=== PATIENT | female | born 1990 | race Caucasian/White ===

== ENCOUNTER 2016-09-15 09:08 | Emergency (ER) | payer OTHER ==
[2016-09-15 09:22] VITALS: BP 109/64; PULSE 62; RESP 20; TEMP 98.1
--- NOTE | 2016-09-15 10:01 | ED ---
General Adult HPI - General Chief complaint: Dental/Oral Stated complaint: Oral Pain Time Seen by Provider: 09/15/16 09:28 Source: patient, RN notes reviewed Mode of arrival: ambulatory Limitations: no limitations - History of Present Illness Initial comments: Patient 25-year-old female who presents emergency room today with chief complaint of increased dental pain. Does admit to fractured tooth that occurred over a year ago. Does admit that approximately a month ago began having some pain. Does admit that she's been trying follow-up with dentist does have an appointment next week. Patient states pains been increasing worried about possible infection. States she's not used anything for pain. She has not tried any Tylenol or Motrin. States pain was worse today and feel like she could work came here to the emergency room. Patient denies any recent fever, chills, shortness of breath, chest pain, back pain, abdominal pain, nausea or vomiting, numbness or tingling, dysuria or hematuria, constipation or diarrhea, headaches or visual changes, or any other complaints. - Related Data Home Medications Medication Instructions Recorded Confirmed No Known Home Medications [No 09/15/16 09/15/16 Known Home Medications] Previous Rx's Medication Instructions Recorded Acetaminophen Tab [Tylenol] 1,000 mg PO TID 5 Days 09/15/16 Ibuprofen [Motrin] 600 mg PO Q6HR PRN #40 day 09/15/16 Penicillin V Potassium [Pen Vee K] 500 mg PO QID 10 Days 09/15/16 Allergies Allergy/AdvReac Type Severity Reaction Status Date / Time No Known Allergies Allergy Verified 09/15/16 09:22 Review of Systems ROS Statement: Those systems with pertinent positive or pertinent negative responses have been documented in the HPI. ROS Other: All systems not noted in ROS Statement are negative. Past Medical History Past Medical History: No Reported History Additional Past Medical History / Comment(s): OVARIAN CYSTS History of Any Multi-Drug Resistant Organisms: None Reported Past Surgical History: Section Additional Past Surgical History / Comment(s): colon biopsy Past Anesthesia/Blood Transfusion Reactions: No Reported Reaction Past Psychological History: No Psychological Hx Reported Smoking Status: Former smoker Past Alcohol Use History: None Reported Past Drug Use History: None Reported General Exam - General Exam Comments Initial Comments: General: The patient is awake and alert, in no distress, and does not appear acutely ill. Eye: Pupils are equal, round and reactive to light, extra-ocular movements are intact. No nystagmus. There is normal conjunctiva bilaterally. No signs of icterus. Ears, nose, mouth and throat: There are moist mucous membranes and no oral lesions. Patient does have fractured tooth at tooth #30. Also fractured tooth #19. No tenderness around the gumline of tooth #19. She is tender around tooth #30. There is no sign of an abscess to drain. Uvula midline. Patient swallows without any difficulty. Neck: The neck is supple, there is no tenderness or JVD. Cardiovascular: There is a regular rate and rhythm. No murmur, rub or gallop is appreciated. Respiratory: Lungs are clear to auscultation, respirations are non-labored, breath sounds are equal. No wheezes, stridor, rales, or rhonchi. Musculoskeletal: Normal ROM, no tenderness. Strength 5/5. Sensation intact. Pulses equal bilaterally 2+. Neurological: A&O x 3. CN II-XII intact, There are no obvious motor or sensory deficits. Coordination appears grossly intact. Speech is normal. Skin: Skin is warm and dry and no rashes or lesions are noted. Psychiatric: Cooperative, appropriate mood & affect, normal judgment. Limitations: no limitations Course Vital Signs 09/15/16 09:20 Temperature 98.1 F Pulse Rate 62 Respiratory 20 Rate Blood Pressure 109/64 O2 Sat by Pulse 99 Oximetry Medical Decision Making - Medical Decision Making Start on antibiotics and given pain medication of Tylenol Motrin here in the emergency room will be discharged home advised follow-up with her dentist. Advised return if any symptoms increase or worsen or for any other concerns. Disposition Clinical Impression: Pain, dental Disposition: HOME SELF-CARE Condition: Good Instructions: Toothache (ED) Additional Instructions: Please use medication as discussed. Please follow-up with distal/family doctor in the next 2 days of symptoms have not improved. Please return to emergency room if the symptoms increase or worsen or for any other concerns. Prescriptions: Acetaminophen Tab [Tylenol] 1,000 mg PO TID 5 Days Ibuprofen [Motrin] 600 mg PO Q6HR PRN #40 day PRN Reason: Pain Penicillin V Potassium [Pen Vee K] 500 mg PO QID 10 Days Referrals: Svetlana Sanford MD [Primary Care Provider] - 1-2 days Time of Disposition: 10:00
== END 2016-09-15 10:07 | disposition home or self-care (01) ==
LOC: EC 09:08
DX: K03.81 Cracked tooth (principal); K08.89 Other specified disorders of teeth and supporting structures; Z87.891 Personal history of nicotine dependence
CPT/HCPCS: 99282

== ENCOUNTER 2016-10-04 11:29 | Emergency (ER) | payer OTHER ==
--- NOTE | 2016-10-04 12:31 | ED ---
ENT HPI - General Chief complaint: Dental/Oral Stated complaint: BROKEN TOOTH HOLE IN CHEEK Time Seen by Provider: 10/04/16 12:13 Source: patient Mode of arrival: ambulatory Limitations: no limitations - Related Data Home Medications Medication Instructions Recorded Confirmed No Known Home Medications [No 09/15/16 09/15/16 Known Home Medications] Previous Rx's Medication Instructions Recorded Acetaminophen Tab [Tylenol] 1,000 mg PO TID 5 Days 09/15/16 Ibuprofen [Motrin] 600 mg PO Q6HR PRN #40 day 09/15/16 Penicillin V Potassium [Pen Vee K] 500 mg PO QID 10 Days 09/15/16 Acetaminophen with Codeine 1 each PO Q4H PRN #20 tab 10/04/16 [Tylenol w/codeine #3] Clindamycin HCl [Cleocin] 300 mg PO Q6HR #28 cap 10/04/16 Allergies Allergy/AdvReac Type Severity Reaction Status Date / Time No Known Allergies Allergy Verified 10/04/16 11:54 Review of Systems ROS Statement: Those systems with pertinent positive or pertinent negative responses have been documented in the HPI. ROS Other: All systems not noted in ROS Statement are negative. Past Medical History Past Medical History: No Reported History Additional Past Medical History / Comment(s): OVARIAN CYSTS History of Any Multi-Drug Resistant Organisms: None Reported Past Surgical History: Section Additional Past Surgical History / Comment(s): colon biopsy Past Anesthesia/Blood Transfusion Reactions: No Reported Reaction Past Psychological History: No Psychological Hx Reported Smoking Status: Current every day smoker Past Alcohol Use History: None Reported Past Drug Use History: None Reported General Exam Limitations: no limitations Course Vital Signs 10/04/16 11:51 Temperature 97.5 F L Pulse Rate 90 Respiratory 20 Rate Blood Pressure 134/93 O2 Sat by Pulse 100 Oximetry Disposition Clinical Impression: Fracture of tooth, Pain, dental Disposition: HOME SELF-CARE Instructions: Toothache (ED) Prescriptions: Clindamycin HCl [Cleocin] 300 mg PO Q6HR #28 cap Acetaminophen with Codeine [Tylenol w/codeine #3] 1 each PO Q4H PRN #20 tab PRN Reason: Pain Referrals: Svetlana Sanford MD [Primary Care Provider] - 1-2 days Eleazar Wilson DDS [STAFF PHYSICIAN] - 1-2 days Time of Disposition: 12:30
[2016-10-04 12:37] VITALS: BP 134/68; PULSE 87; RESP 18; TEMP 98
== END 2016-10-04 12:36 | disposition home or self-care (01) ==
LOC: EC 11:29
DX: S02.5XXA Fracture of tooth (traumatic), initial encounter for closed fracture (principal); X58.XXXA Exposure to other specified factors, initial encounter; F17.200 Nicotine dependence, unspecified, uncomplicated
CPT/HCPCS: 99283

== ENCOUNTER → 2016-11-27 | Outpatient (CLI) | payer OTHER ==
--- NOTE | 2016-11-28 14:48 | US ---
EXAMINATION TYPE: US pelvic complete DATE OF EXAM: 11/27/2016 COMPARISON: 11/04/2014 CLINICAL HISTORY: N94.6 Dysmenorrhea. TECHNIQUE: Real-time transabdominal sonography Date of LMP: Not reported EXAM MEASUREMENTS: Uterus: 9.2 x 4.0 x 5.3 cm Endometrial Stripe: 0.4 cm Right Ovary: 2.5 x 1.6 x 1.4 cm Left Ovary: 2.8 x 1.5 x 1.4 cm 1. Uterus: Anteverted wnl 2. Endometrium: wnl 3. Right Ovary: wnl 4. Left Ovary: wnl 5. Bilateral adnexa: wnl 6. Posterior cul-de-sac: wnl IMPRESSION: 1. Normal pelvic ultrasound.
== END | disposition home or self-care (01) ==
LOC: RADUSWWP 15:38
PROVIDERS: ATTEND Internal Medicine
DX: N94.6 Dysmenorrhea, unspecified (principal)
CPT/HCPCS: 76856

== ENCOUNTER 2017-01-13 19:31 | Emergency (ER) | payer OTHER ==
[2017-01-13 19:57] VITALS: TEMP 98.2
[2017-01-13] MEDS ORDERED: ORPHENADRINE 30 MG/ML 2 ML VIAL IVP STA (21:33)
--- NOTE | 2017-01-13 21:54 | XR ---
EXAMINATION TYPE: XR chest 2V DATE OF EXAM: 01/13/2017 COMPARISON: Chest x-ray November 23, 2011 HISTORY: Chest pain. TECHNIQUE: Frontal and lateral views of the chest are obtained. FINDINGS: There is no focal air space opacity, pleural effusion, or pneumothorax seen. The cardiac silhouette size is within normal limits. The osseous structures are intact. IMPRESSION: No acute process. No significant change from prior.
--- NOTE | 2017-01-13 21:55 | XR ---
EXAMINATION TYPE: XR cervical spine comp DATE OF EXAM: 01/13/2017 TECHNIQUE: Frontal, lateral, open mouth, and oblique images cervical spine are acquired. HISTORY: Pain pain after trauma injury. COMPARISON: None FINDINGS: The cervical spine is visualized in its entirety from C1 thru the inferior C7 level, it is satisfactory in alignment without evidence of acute fracture or dislocation. There is suboptimal demetrius luation of C7-T1 disc space without dedicated swimmer's view. The pre-vertebral soft tissue appears w ithin normal limits. The C1-C2 articulation is within normal limits on the open mouth view. Vertebra l body heights and disc space heights are maintained. The oblique images are within normal limits. Ov erlying soft tissue is unremarkable. IMPRESSION: No acute fracture or dislocation is seen in the cervical spine on images saved.
[2017-01-13 22:11] LABS: Basophils % (A) 0 %; CH 30.5; CHCM 33.6; Eosinophils # (A) 0.2 k/uL (0-0.7); Eosinophils % (A) 2 %; HCT 37.8 % (34.0-46.0); HGB 12.8 gm/dL (11.4-16.0); Luc % (Auto) 1; Lymphocytes # (A) 2.9 k/uL (1.0-4.8); Lymphocytes % (A) 30 %; MCH 30.9 pg (25.0-35.0); MCHC 33.8 g/dL (31.0-37.0); MCV 91.3 fL (80.0-100.0); Mean Platelet Volume 7.8; Monocytes # (A) 0.4 k/uL (0-1.0); Monocytes % (A) 4 %; Neutrophils % (A) 63 %; RBC 4.14 m/uL (3.80-5.40); WBC 9.6 k/uL (3.8-10.6); WBC (Perox) 10.07
[2017-01-13 22:12] VITALS: BP 123/71; RESP 18
[2017-01-13 22:24] LABS: ALT 38 U/L (9-52); AST 27 U/L (14-36); Alkaline Phosphatase 66 U/L (38-126); Anion Gap 12 mmol/L; Blood Urea Nitrogen 11 mg/dL (7-17); Calcium 9.7 mg/dL (8.4-10.2); Carbon Dioxide 20 mmol/L (22-30); Chloride 107 mmol/L (98-107); Glucose 78 mg/dL (74-99); Non-African American GFR(MDRD) >60 (>60 ml/min/1.73 sqM); Sodium 139 mmol/L (137-145); Total Bilirubin 0.4 mg/dL (0.2-1.3); Total Protein 7.4 g/dL (6.3-8.2)
[2017-01-13 22:54] VITALS: PULSE 88
--- NOTE | 2017-01-13 23:13 | ED ---
Head Injury HPI - General Chief complaint: Head Injury Stated complaint: Fall/Headache Time Seen by Provider: 01/13/17 21:08 Source: patient, RN notes reviewed, old records reviewed Mode of arrival: wheelchair Limitations: no limitations - History of Present Illness Initial comments: Patient is a 26-year-old female presents emergency Department chief complaint of left-sided neck pain and headache. She reports that she slipped, and hit her head on the edge of her car and slid down. She also complains of some abdominal cramping and nausea as well. She reports that she had no loss of consciousness. She states that it feels like her muscles are spasming in her neck. She denies any change in bowel habit or urination. Denies any other associated symptoms. Patient was concerned she is having difficulty with her neck.Patient denies any recent fever, chills, shortness of breath, chest pain, back pain, abdominal pain, nausea vomiting, numbness or tingling, dysuria or hematuria, constipation or diarrhea, headaches or visual changes, or any other current symptoms - Related Data Previous Rx's Medication Instructions Recorded Cyclobenzaprine [Flexeril] 10 mg PO TID #15 tab 01/13/17 Allergies/Adverse reactions: Allergies Allergy/AdvReac Type Severity Reaction Status Date / Time No Known Allergies Allergy Verified 01/13/17 21:08 Review of Systems ROS Statement: Those systems with pertinent positive or pertinent negative responses have been documented in the HPI. ROS Other: All systems not noted in ROS Statement are negative. Past Medical History Past Medical History: No Reported History Additional Past Medical History / Comment(s): OVARIAN CYSTS History of Any Multi-Drug Resistant Organisms: None Reported Past Surgical History: Section Additional Past Surgical History / Comment(s): colon biopsy Past Anesthesia/Blood Transfusion Reactions: No Reported Reaction Past Psychological History: No Psychological Hx Reported Smoking Status: Current every day smoker Past Alcohol Use History: None Reported Past Drug Use History: None Reported General Exam - General Exam Comments Initial Comments: Well-appearing 26-year-old female. Alert and oriented 4. No distress. Limitations: no limitations General appearance: alert, in no apparent distress Head exam: Present: atraumatic, normocephalic, normal inspection Eye exam: Present: normal appearance, PERRL, EOMI. Absent: scleral icterus, conjunctival injection, periorbital swelling ENT exam: Present: normal exam, mucous membranes moist Neck exam: Present: normal inspection. Absent: tenderness, meningismus, full ROM (Patient has pain and tenderness to palpation over her lateral neck, left side.), lymphadenopathy Respiratory exam: Present: normal lung sounds bilaterally. Absent: respiratory distress, wheezes, rales, rhonchi, stridor Cardiovascular Exam: Present: regular rate, normal rhythm, normal heart sounds. Absent: systolic murmur, diastolic murmur, rubs, gallop, clicks GI/Abdominal exam: Present: soft, normal bowel sounds. Absent: distended, guarding, rebound, rigid Extremities exam: Present: normal inspection, full ROM, normal capillary refill. Absent: tenderness, pedal edema, joint swelling, calf tenderness Back exam: Present: normal inspection Neurological exam: Present: alert, oriented X3, CN II-XII intact Course Vital Signs 01/13/17 01/13/17 19:54 22:09 Temperature 98.2 F 98.2 F Pulse Rate 80 88 Respiratory 20 18 Rate Blood Pressure 134/99 123/71 O2 Sat by Pulse 98 97 Oximetry Medical Decision Making - Medical Decision Making Patient is a 26-year-old [employer] chief complaint of left-sided neck pain and headache after she slipped and hit her head on the edge of the car and slid down. No loss conscious. Patient is alert and oriented. No neurological deficits. Chest and he complains some vague abdominal pain, nausea. Lab work was obtained. Patient given IV Norflex and Toradol. She was feeling better at this time. Her cervical spine x-ray was reviewed and negative for any abnormalities, chest x-ray as well. Patient will be discharged at this time with follow-up. Given a prescription for Flexeril. For the muscle spasms over her neck and back. Patient agrees to treatment plan will comply. Return parameters were discussed. - Lab Data Result diagrams: 01/13/17 22:02 01/13/17 22:02 Lab Results 01/13/17 01/13/17 Range/Units 22:02 22:02 WBC 9.6 (3.8-10.6) k/uL RBC 4.14 (3.80-5.40) m/uL Hgb 12.8 (11.4-16.0) gm/dL Hct 37.8 (34.0-46.0) % MCV 91.3 (80.0-100.0) fL MCH 30.9 (25.0-35.0) pg MCHC 33.8 (31.0-37.0) g/dL RDW 14.0 (11.5-15.5) % Plt Count 251 (150-450) k/uL Neutrophils % 63 % Lymphocytes % 30 % Monocytes % 4 % Eosinophils % 2 % Basophils % 0 % Neutrophils # 6.0 (1.3-7.7) k/uL Lymphocytes # 2.9 (1.0-4.8) k/uL Monocytes # 0.4 (0-1.0) k/uL Eosinophils # 0.2 (0-0.7) k/uL Basophils # 0.0 (0-0.2) k/uL Sodium 139 (137-145) mmol/L Potassium 4.0 (3.5-5.1) mmol/L Chloride 107 (98-107) mmol/L Carbon Dioxide 20 L (22-30) mmol/L Anion Gap 12 mmol/L BUN 11 (7-17) mg/dL Creatinine 0.80 (0.52-1.04) mg/dL Est GFR (MDRD) Af Amer >60 (>60 ml/min/1.73 sqM) Est GFR (MDRD) Non-Af >60 (>60 ml/min/1.73 sqM) Glucose 78 (74-99) mg/dL Calcium 9.7 (8.4-10.2) mg/dL Total Bilirubin 0.4 (0.2-1.3) mg/dL AST 27 (14-36) U/L ALT 38 (9-52) U/L Alkaline Phosphatase 66 (38-126) U/L Total Protein 7.4 (6.3-8.2) g/dL Albumin 4.4 (3.5-5.0) g/dL - Radiology Data Radiology results: report reviewed Chest x-ray was reviewed negative for any acute process. Cervical spine shows no acute fracture dislocation. Disposition Clinical Impression: Head injury, Neck pain on left side Disposition: HOME SELF-CARE Condition: Good Instructions: Concussion (ED) Additional Instructions: Patient denies to take the medications as prescribed. Also take Motrin Tylenol for pain. Return to emergency department if any alarming signs or symptoms occur. Prescriptions: Cyclobenzaprine [Flexeril] 10 mg PO TID #15 tab Referrals: Svetlana Sanford MD [Primary Care Provider] - 1-2 days Time of Disposition: 23:03
[2017-01-14] MEDS ORDERED: KETOROLAC 30 MG/ML 1 ML VIAL IVP SCH
== END 2017-01-13 23:15 | disposition home or self-care (01) ==
LOC: EC 19:31
DX: S09.90XA Unspecified injury of head, initial encounter (principal); M54.2 Cervicalgia; F17.200 Nicotine dependence, unspecified, uncomplicated; W01.198A Fall on same level from slipping, tripping and stumbling with subsequent striking against other object, initial encounter
CPT/HCPCS: 99284; 96374; 96375; 36415; 80053; 85025; 71020; 72050; J2360; J1885

== ENCOUNTER 2017-03-08 07:44 | Day surgery (SDC) | payer OTHER ==
[2017-02-25 14:32] VITALS: BMI 26.5
[~2017-03-08 07:44] MED LIST: DEXAMETHASONE SOD PHOSPHATE 10 MG/ML 1 ML VIAL IV ONE; HEPARIN SODIUM,PORCINE 5,000 UNIT/ML 1 ML VIAL SQ ONE; HYDROmorphone 0.5 MG/0.5 ML SYRINGE IVP PRN; LACTATED RINGERS 1,000 ML IV SCH; LIDOCAINE 1% 20 ML VIAL (10MG/ML) FOR IV START INTRADERMA PRN; ONDANSETRON 4 MG/2 ML VIAL IVP ONE; SCOPOLAMINE 1.5MG/72HR PATCH TRANSDERM ONE; ceFAZolin IN SWFI 2 GM/20 ML SYRINGE IVP ONE
[2017-03-08] MEDS ORDERED: MIDAZOLAM 2 MG/2 ML VIAL IVP ONE (08:51)
--- NOTE | 2017-03-08 09:06 | P.GSHP ---
History of Present Illness H&P Date: 03/08/17 Chief Complaint: Incisional hernia This is a 26-year-old female for from Dr. Sanford. Patient presents today for open repair of incisional hernia. Patient has had a previous Pfannenstiel incision in the left lateral aspect of her incision there is a mass. Patient presents today for repair of incisional hernia. Past Medical History Past Medical History: No Reported History Additional Past Medical History / Comment(s): abdominal pain,Hx OVARIAN CYSTS History of Any Multi-Drug Resistant Organisms: None Reported Past Surgical History: Section Additional Past Surgical History / Comment(s): colon biopsy, x2 Past Anesthesia/Blood Transfusion Reactions: No Reported Reaction Smoking Status: Current every day smoker - Past Family History Mother Family Medical History: No Reported History Father Family Medical History: No Reported History Medications and Allergies Home Medications Medication Instructions Recorded Confirmed Type busPIRone HCL [Buspar] 7.5 mg PO BID 02/25/17 03/08/17 History Allergies Allergy/AdvReac Type Severity Reaction Status Date / Time No Known Allergies Allergy Verified 03/08/17 08:38 Surgical - Exam Vital Signs Temp Pulse Resp BP Pulse Ox 97.7 F 59 L 15 120/71 96 03/08/17 08:38 03/08/17 08:38 03/08/17 08:38 03/08/17 08:38 03/08/17 08:38 - General well developed, no distress - Eyes PERRL - ENT normal pinna - Neck no masses - Respiratory normal expansion - Cardiovascular Rhythm: regular - Abdomen Abdomen: soft, non tender Hernia: incisional (2 cm incisional hernia located in the left lateral aspect of Pfannenstiel incision..) Assessment and Plan Assessment: Incisional hernia. We'll perform repair.
[2017-03-08] MEDS ORDERED: SUCCINYLCHOLINE CHLORIDE 100 MG/5 ML SYR IV ONE (09:10)
[2017-03-08] MEDS ORDERED: MIDAZOLAM 2 MG/2 ML VIAL ONE (09:10)
[2017-03-08] MEDS ORDERED: NEOSTIGMINE 1 MG/ML 10 ML VIAL ONE (09:10)
[2017-03-08] MEDS ORDERED: LIDOCAINE 1% INJ 10MG/ML (20 ML MDV) ONE (09:10)
[2017-03-08] MEDS ORDERED: GLYCOPYRROLATE 0.2 MG/ML 2 ML VIAL ONE (09:10)
[2017-03-08] MEDS ORDERED: fentaNYL (PF) 50 MCG/ML 2 ML AMP ONE (09:10)
[2017-03-08] MEDS ORDERED: ROCURONIUM BROMIDE 10 MG/ML 10 ML VIAL IV ONE (09:10)
[2017-03-08] MEDS ORDERED: BUPIVACAIN-EPI 0.5%-1:200,000 30 ML VIAL SQ ONE ×2 (09:21)
[2017-03-08] MEDS ORDERED: SODIUM CHLORIDE 0.9% 50 ML with ceFAZolin 2 MG IV ONE ×2 (09:23)
[2017-03-08] MEDS ORDERED: LACTATED RINGERS 1,000 ML IV ONE ×2 (09:40→10:54)
[2017-03-08] MEDS ORDERED: MEPERIDINE 50 MG/ML SYRINGE IVP ONE ×2 (10:10→10:15)
[2017-03-08 10:13] VITALS: TEMP 97.4
--- NOTE | 2017-03-08 10:15 | P.OP ---
Date of Procedure: 03/08/17 Preoperative Diagnosis: Incisional hernia Postoperative Diagnosis: Incisional hernia Possible endometrioma Procedure(s) Performed: Repair of incisional hernia Excision of possible endometrioma Anesthesia: NUSRAT Surgeon: Tejinder Bartlett Pathology: other (Hernia sac, endometrioma) Condition: stable Disposition: PACU Description of Procedure: The patient's placed on the operating table in supine position. She received general anesthesia. Her abdomen was prepped and draped usual fashion. The patient had a small mass in the lateral aspect of her Pfannenstiel incision. The skin was incised to the previous scar. And then using left cautery the subcutaneous tissues were divided. The patient had a small fascial defect in the lateral aspect of her scar. This was opened. Just medial to this there appeared to be evidence of a fluid filled cyst. It had the appearance of an endometrioma. There was some dark blood within the cyst. The cyst was excised using left cautery. The hernia sac was excised. The fascial defect was then closed using 0 Vicryl suture. The skin was closed interrupted 3-0 Monocryl suture. Dermabond was applied. Patient top she will was sent to recovery in stable condition.
[2017-03-08 10:19] VITALS: RESP 16
[2017-03-08] MEDS ORDERED: HYDROmorphone 1 MG/ML 1 ML SYRINGE IVP ONE ×4 (10:30→10:53)
[2017-03-08] MEDS ORDERED: HYDROcodone/APAP 7.5-325MG 1 EACH TAB PO ONE (11:30)
[2017-03-08 12:19] VITALS: BP 121/70; PULSE 67
== END 2017-03-08 12:24 | disposition home or self-care (01) ==
LOC: OR 07:44
PROVIDERS: ATTEND Surgery
DX: K43.2 Incisional hernia without obstruction or gangrene (principal); N80.6 Endometriosis in cutaneous scar; F17.200 Nicotine dependence, unspecified, uncomplicated; Z79.899 Other long term (current) drug therapy; F41.9 Anxiety disorder, unspecified
CPT/HCPCS: 81025; 88305; 88302; 49560; J2250; J1644; J1100; J2710; J2175; J2405; J2001; J3010; J1170; J0690; J0330

== ENCOUNTER 2017-03-12 06:46 | Emergency (ER) | payer OTHER ==
[2017-03-12 06:57] VITALS: BP 136/81; PULSE 83; RESP 18
[2017-03-12] MEDS ORDERED: KETOROLAC 30 MG/ML 1 ML VIAL IM STA (07:11)
--- NOTE | 2017-03-12 07:20 | ED ---
ENT HPI - General Chief complaint: Dental/Oral Stated complaint: dental pain Time Seen by Provider: 03/12/17 06:59 Source: patient, RN notes reviewed, old records reviewed Mode of arrival: ambulatory Limitations: no limitations - History of Present Illness Initial comments: 26-year-old female presenting with three-day history of worsening right upper dental pain. Patient has been taking [place] at home with minimal relief. She has not seen a dentist. She had recent abdominal wall surgery, she has no complaints regarding her abdomen or recent surgery. Pain is controlled. Patient's chief complaint and only complaint at this time is right dental pain. No fever. No facial swelling. No difficulty swallowing. Pain is severe dull aching in nature. Constant pain MD complaint: tooth pain Onset/Timin -: days(s) - Related Data Home Medications Medication Instructions Recorded Confirmed busPIRone HCL [Buspar] 7.5 mg PO BID 02/25/17 03/08/17 Previous Rx's Medication Instructions Recorded Docusate [Colace] 100 mg PO BID #20 capsule 03/08/17 HYDROcodone/APAP 7.5-325MG [[place] 1 each PO Q4H PRN #30 tab 03/08/17 7.5] HYDROcodone/APAP 5-325MG [[place] 1 tab PO Q6HR PRN #12 tab 03/12/17 5-325] Ibuprofen [Motrin] 600 mg PO Q8HR PRN #24 tab 03/12/17 Penicillin V Potassium [Pen Vee K] 500 mg PO TID #30 tablet 03/12/17 Allergies Allergy/AdvReac Type Severity Reaction Status Date / Time No Known Allergies Allergy Verified 03/08/17 08:38 Review of Systems ROS Statement: Those systems with pertinent positive or pertinent negative responses have been documented in the HPI. ROS Other: All systems not noted in ROS Statement are negative. Past Medical History Past Medical History: No Reported History Additional Past Medical History / Comment(s): abdominal pain,Hx OVARIAN CYSTS History of Any Multi-Drug Resistant Organisms: None Reported Past Surgical History: Section Additional Past Surgical History / Comment(s): colon biopsy, x2,mass removed from lower stomach 03/08/16 testing for CA. Past Anesthesia/Blood Transfusion Reactions: No Reported Reaction Past Psychological History: Anxiety Smoking Status: Current every day smoker Past Alcohol Use History: None Reported Past Drug Use History: None Reported - Past Family History Mother Family Medical History: No Reported History Father Family Medical History: No Reported History General Exam Limitations: no limitations General appearance: alert, in no apparent distress Head exam: Present: atraumatic, normocephalic Eye exam: Present: normal appearance, PERRL ENT exam: Present: mucous membranes moist, normal external ear exam, other ( Tenderness to percussion over tooth #2, no visualized abscess.) Neck exam: Present: normal inspection. Absent: tenderness, meningismus, lymphadenopathy Respiratory exam: Present: normal lung sounds bilaterally. Absent: respiratory distress Cardiovascular Exam: Present: regular rate, normal rhythm GI/Abdominal exam: Present: soft, other (Left lower abdominal incision is clean dry and intact, no tenderness). Absent: distended, tenderness Extremities exam: Present: normal inspection, normal capillary refill. Absent: calf tenderness Neurological exam: Present: alert, oriented X3, CN II-XII intact. Absent: motor sensory deficit Psychiatric exam: Present: normal affect, normal mood Skin exam: Present: warm, dry, intact Course Vital Signs 03/12/17 06:52 Pulse Rate 83 Respiratory 18 Rate Blood Pressure 136/81 O2 Sat by Pulse 100 Oximetry Medical Decision Making - Medical Decision Making 26-year-old female with 3 days of tooth pain over tooth #2. Patient is afebrile well-appearing. She will be given outpatient dental follow-up, prescribed Motrin and penicillin. Disposition Clinical Impression: Dental abscess, Toothache Disposition: HOME SELF-CARE Instructions: Dental Abscess (ED), Toothache (ED) Additional Instructions: Please follow up with dental clinic, information provided. Prescriptions: HYDROcodone/APAP 5-325MG [[place] 5-325] 1 tab PO Q6HR PRN #12 tab PRN Reason: Pain Ibuprofen [Motrin] 600 mg PO Q8HR PRN #24 tab PRN Reason: Pain Penicillin V Potassium [Pen Vee K] 500 mg PO TID #30 tablet Referrals: Svetlana Sanford MD [Primary Care Provider] - 1-2 days Time of Disposition: 07:18
[2017-03-12 07:21] VITALS: TEMP 98.6
== END 2017-03-12 07:39 | disposition home or self-care (01) ==
LOC: EC 06:46
DX: K04.7 Periapical abscess without sinus (principal); F41.9 Anxiety disorder, unspecified; F17.200 Nicotine dependence, unspecified, uncomplicated; Z79.899 Other long term (current) drug therapy
CPT/HCPCS: 99283; 96372; J1885

== ENCOUNTER 2017-03-22 11:12 | Emergency (ER) | payer OTHER ==
[2017-03-22] MEDS ORDERED: KETOROLAC 30 MG/ML 1 ML VIAL IVP STA (12:45)
[2017-03-22] MEDS ORDERED: RX INFO: IV CONTRAST WAS GIVEN 1 EACH MISC MISCELLANE PRN (12:45)
[2017-03-22] MEDS ORDERED: SODIUM CHLORIDE 0.9% 1,000 ML IV STA (12:45)
--- NOTE | 2017-03-22 12:51 | ED ---
Fall HPI - General Chief Complaint: Fall Stated Complaint: Hernia Time Seen by Provider: 03/22/17 12:32 Source: patient Mode of arrival: ambulatory - History of Present Illness Initial Comments: This is a 26-year-old female who states she had a left hernia repair to the left lower quadrant of the abdomen on the eighth of this month who states she slipped and fell down 3 steps yesterday but was able to catch herself and did not actually land on anything in particular. She initially thought she would be okay was started developing left lower quadrant abdominal pain. She states she has some swelling to the area but no bleeding or discharge. She states she has a lot of pain in this area does increase with movement she denies any fevers chills sweats or dysuria. MD Complaint: fall, other - Related Data Home Medications Medication Instructions Recorded Confirmed busPIRone HCL [Buspar] 7.5 mg PO BID 02/25/17 03/22/17 Previous Rx's Medication Instructions Recorded Penicillin V Potassium [Pen Vee K] 500 mg PO TID #30 tablet 03/12/17 Ibuprofen 800 mg PO Q6HR PRN #20 tablet 03/22/17 Allergies Allergy/AdvReac Type Severity Reaction Status Date / Time acetaminophen [From [place]] AdvReac Abdominal Verified 03/22/17 12:29 Pain hydrocodone [From [place]] AdvReac Abdominal Verified 03/22/17 12:29 Pain Review of Systems ROS Statement: Those systems with pertinent positive or pertinent negative responses have been documented in the HPI. ROS Other: All systems not noted in ROS Statement are negative. Past Medical History Past Medical History: No Reported History Additional Past Medical History / Comment(s): abdominal pain,Hx OVARIAN CYSTS History of Any Multi-Drug Resistant Organisms: None Reported Past Surgical History: Bowel Resection, Section, Hernia Repair Additional Past Surgical History / Comment(s): colon biopsy, x2,mass removed from lower stomach 03/08/16 testing for CA. Past Anesthesia/Blood Transfusion Reactions: No Reported Reaction Past Psychological History: Anxiety Smoking Status: Current every day smoker Past Alcohol Use History: None Reported Past Drug Use History: None Reported - Past Family History Mother Family Medical History: No Reported History Father Family Medical History: No Reported History General Exam - General Exam Comments Initial Comments: This is a well-developed well-nourished awake alert oriented 3 female Limitations: no limitations General appearance: alert, anxious Head exam: Present: atraumatic, normocephalic, normal inspection Eye exam: Present: normal appearance, PERRL, EOMI. Absent: scleral icterus, conjunctival injection, periorbital swelling ENT exam: Present: normal exam, mucous membranes moist Neck exam: Present: normal inspection. Absent: tenderness, meningismus, lymphadenopathy Respiratory exam: Present: normal lung sounds bilaterally. Absent: respiratory distress, wheezes, rales, rhonchi, stridor Cardiovascular Exam: Present: regular rate, normal rhythm, normal heart sounds. Absent: systolic murmur, diastolic murmur, rubs, gallop, clicks GI/Abdominal exam: Present: soft, tenderness (Examination the abdomen reveals a well-healing surgical scar in the left lower quadrant region. A subcuticular stitch was used to close the wound appears to be intact with no evidence of any drainage or discharge. There is no obvious deformity or bulges at the region though the patient does state she is exquisitely tender to palpation to the area and along the left flank.), normal bowel sounds. Absent: distended, guarding, rebound, rigid Rectal exam: Present: deferred Extremities exam: Present: normal inspection, full ROM, normal capillary refill. Absent: tenderness, pedal edema, joint swelling, calf tenderness Back exam: Present: normal inspection Neurological exam: Present: alert, oriented X3, CN II-XII intact Psychiatric exam: Present: normal affect, normal mood Skin exam: Present: warm, dry, intact, normal color. Absent: rash Course Vital Signs 03/22/17 03/22/17 11:38 15:26 Temperature 98.6 F 98.0 F Pulse Rate 95 64 Respiratory 18 16 Rate Blood Pressure 140/89 126/58 O2 Sat by Pulse 99 99 Oximetry - Reevaluation(s) Reevaluation #1: 03/22/17 12:50 I did remove the single surgical tape that was over the wound the patient stated it hurt exquisitely with any type of movement and removal of the tape Medical Decision Making - Medical Decision Making The patient did finally get some relief in her pain I did discuss the findings with her. She was like to be sent home and follow-up in the office with her surgeon I did discuss the case with Dr. Bartlett. The patient will call make an appointment for tomorrow. She does not want to be sent home on any [place] as she said Motrin with her for her. - Lab Data Result diagrams: 03/22/17 12:52 03/22/17 12:52 Lab Results 03/22/17 03/22/17 03/22/17 Range/Units 12:52 12:52 12:52 WBC 8.1 (3.8-10.6) k/uL RBC 4.40 (3.80-5.40) m/uL Hgb 13.4 (11.4-16.0) gm/dL Hct 40.6 (34.0-46.0) % MCV 92.3 (80.0-100.0) fL MCH 30.6 (25.0-35.0) pg MCHC 33.1 (31.0-37.0) g/dL RDW 13.4 (11.5-15.5) % Plt Count 336 (150-450) k/uL Neutrophils % 65 % Lymphocytes % 27 % Monocytes % 4 % Eosinophils % 2 % Basophils % 0 % Neutrophils # 5.2 (1.3-7.7) k/uL Lymphocytes # 2.2 (1.0-4.8) k/uL Monocytes # 0.3 (0-1.0) k/uL Eosinophils # 0.2 (0-0.7) k/uL Basophils # 0.0 (0-0.2) k/uL Sodium 143 (137-145) mmol/L Potassium 4.0 (3.5-5.1) mmol/L Chloride 104 (98-107) mmol/L Carbon Dioxide 27 (22-30) mmol/L Anion Gap 12 mmol/L BUN 16 (7-17) mg/dL Creatinine 0.82 (0.52-1.04) mg/dL Est GFR (MDRD) Af Amer >60 (>60 ml/min/1.73 sqM) Est GFR (MDRD) Non-Af >60 (>60 ml/min/1.73 sqM) Glucose 84 (74-99) mg/dL Calcium 10.2 (8.4-10.2) mg/dL Total Bilirubin 0.5 (0.2-1.3) mg/dL AST 38 H (14-36) U/L ALT 71 H (9-52) U/L Alkaline Phosphatase 82 (38-126) U/L Total Protein 8.0 (6.3-8.2) g/dL Albumin 4.8 (3.5-5.0) g/dL Amylase 83 (30-110) U/L Lipase 206 (23-300) U/L Urine Color Yellow Urine Appearance Cloudy H (Clear) Urine pH 7.0 (5.0-8.0) Ur Specific [place] 1.019 (1.001-1.035) Urine Protein Negative (Negative) Urine Glucose (UA) Negative (Negative) Urine Ketones Negative (Negative) Urine Blood Negative (Negative) Urine Nitrite Negative (Negative) Urine Bilirubin Negative (Negative) Urine Urobilinogen <2.0 (<2.0) mg/dL Ur Leukocyte Esterase Negative (Negative) Urine WBC 1 (0-5) /hpf Ur Squamous Epith Cells 2 (0-4) /hpf Amorphous Sediment Occasional H (None) /hpf Urine Bacteria Rare H (None) /hpf Urine Mucus Moderate H (None) /hpf Urine HCG, Qual (Not Detectd) 03/22/17 Range/Units 12:52 WBC (3.8-10.6) k/uL RBC (3.80-5.40) m/uL Hgb (11.4-16.0) gm/dL Hct (34.0-46.0) % MCV (80.0-100.0) fL MCH (25.0-35.0) pg MCHC (31.0-37.0) g/dL RDW (11.5-15.5) % Plt Count (150-450) k/uL Neutrophils % % Lymphocytes % % Monocytes % % Eosinophils % % Basophils % % Neutrophils # (1.3-7.7) k/uL Lymphocytes # (1.0-4.8) k/uL Monocytes # (0-1.0) k/uL Eosinophils # (0-0.7) k/uL Basophils # (0-0.2) k/uL Sodium (137-145) mmol/L Potassium (3.5-5.1) mmol/L Chloride (98-107) mmol/L Carbon Dioxide (22-30) mmol/L Anion Gap mmol/L BUN (7-17) mg/dL Creatinine (0.52-1.04) mg/dL Est GFR (MDRD) Af Amer (>60 ml/min/1.73 sqM) Est GFR (MDRD) Non-Af (>60 ml/min/1.73 sqM) Glucose (74-99) mg/dL Calcium (8.4-10.2) mg/dL Total Bilirubin (0.2-1.3) mg/dL AST (14-36) U/L ALT (9-52) U/L Alkaline Phosphatase (38-126) U/L Total Protein (6.3-8.2) g/dL Albumin (3.5-5.0) g/dL Amylase (30-110) U/L Lipase (23-300) U/L Urine Color Urine Appearance (Clear) Urine pH (5.0-8.0) Ur Specific [place] (1.001-1.035) Urine Protein (Negative) Urine Glucose (UA) (Negative) Urine Ketones (Negative) Urine Blood (Negative) Urine Nitrite (Negative) Urine Bilirubin (Negative) Urine Urobilinogen (<2.0) mg/dL Ur Leukocyte Esterase (Negative) Urine WBC (0-5) /hpf Ur Squamous Epith Cells (0-4) /hpf Amorphous Sediment (None) /hpf Urine Bacteria (None) /hpf Urine Mucus (None) /hpf Urine HCG, Qual Not Detected (Not Detectd) - Radiology Data Radiology results: report reviewed (I did review the imaging and reports are is a 3.4 x 7.8 x 6 cm seroma/hematoma seen in the left lower quadrant.), image reviewed Disposition Clinical Impression: Seroma after procedure, Fall, Abdominal pain Disposition: HOME SELF-CARE Condition: Good Instructions: Abdominal Pain (ED) Additional Instructions: Follow-up with Dr. Bartlett tomorrow Prescriptions: Ibuprofen 800 mg PO Q6HR PRN #20 tablet PRN Reason: Pain Referrals: Svetlana Sanford MD [Primary Care Provider] - 1-2 days
[2017-03-22 13:04] LABS: Basophils % (A) 0 %; Eosinophils # (A) 0.2 k/uL (0-0.7); Eosinophils % (A) 2 %; HCT 40.6 % (34.0-46.0); HGB 13.4 gm/dL (11.4-16.0); Lymphocytes # (A) 2.2 k/uL (1.0-4.8); Lymphocytes % (A) 27 %; MCH 30.6 pg (25.0-35.0); MCHC 33.1 g/dL (31.0-37.0); MCV 92.3 fL (80.0-100.0); Mean Platelet Volume 7.4; Monocytes # (A) 0.3 k/uL (0-1.0); Monocytes % (A) 4 %; Neutrophils # (A) 5.2 k/uL (1.3-7.7); Neutrophils % (A) 65 %; Platelet Count 336 k/uL (150-450); RDW 13.4 % (11.5-15.5); WBC 8.1 k/uL (3.8-10.6)
[2017-03-22 13:08] LABS: Amorphous Sediment,Urine Occasional /hpf; Appearance,Urine Cloudy (Clear); Bacteria,Urine Rare /hpf; Bilirubin,Urine Negative (Negative); Blood,Urine Negative (Negative); Color,Urine Yellow; Glucose,Urine (UA) Negative (Negative); Ketones,Urine Negative (Negative); Leukocyte Esterase,Urine Negative (Negative); Mucus,Urine Moderate /hpf; Nitrite,Urine Negative (Negative); Protein,Urine Negative (Negative); Specific Gravity,Urine 1.019 (1.001-1.035); Squamous Epithelial Cell,Urine 2 /hpf (0-4); Urobilinogen,Urine <2.0 mg/dL (<2.0); WBC,Urine 1 /hpf (0-5)
[2017-03-22 13:13] LABS: ALT 71 U/L (9-52); AST 38 U/L (14-36); Albumin 4.8 g/dL (3.5-5.0); Alkaline Phosphatase 82 U/L (38-126); Amylase 83 U/L (30-110); Anion Gap 12 mmol/L; Blood Urea Nitrogen 16 mg/dL (7-17); Calcium 10.2 mg/dL (8.4-10.2); Carbon Dioxide 27 mmol/L (22-30); Chloride 104 mmol/L (98-107); Glucose 84 mg/dL (74-99); Lipase 206 U/L (23-300); Sodium 143 mmol/L (137-145); Total Bilirubin 0.5 mg/dL (0.2-1.3)
[2017-03-22] MEDS ORDERED: HYDROmorphone 2 MG/ML 1 ML SYRINGE IVP STA (14:00)
--- NOTE | 2017-03-22 14:03 | CT ---
EXAMINATION TYPE: CT abdomen pelvis w con DATE OF EXAM: 03/22/2017 COMPARISON: Ct 12/18/2013 HISTORY: Hernia repair 03-08-17, fall yesterday with pain to surgical site. CT DLP: 1179 mGycm Automated exposure control for dose reduction was used. TECHNIQUE: Helical acquisition of images from the lung bases through the pelvis have been completed. CONTRAST: Performed without Oral Contrast and with IV Contrast, patient injected with 100 mL of Omnipaque 300. FINDINGS: LUNG BASES: No significant abnormality is appreciated. AORTA: No significant abnormality is appreciated. LIVER/GB: No significant abnormality is appreciated. PANCREAS: No significant abnormality is seen. SPLEEN: No significant abnormality is seen. ADRENALS: No significant abnormality is seen. KIDNEYS: No significant abnormality is seen. REPRODUCTIVE ORGANS: No significant abnormality is seen BOWEL: No significant abnormality is seen. FREE AIR: No Free Air visible. ASCITES: None visible. PELVIC ADENOPATHY: None visualized. RETROPERITONEAL ADENOPATHY: No Retroperitoneal Adenopathy visible. URINARY BLADDER: Thickened urinary bladder wall may be due to lack of distention, correlate to exclu de cystitis. OSSEOUS STRUCTURES: No significant abnormality is seen. Left lower quadrant shows a fluid collection measures 3.4 x 7.8 x 6 cm and shows a fluid fluid level, extension to the skin surface from the anterior margin of the rectus muscle. There is an enhancing w all. Minimal free fluid in the pelvis. IMPRESSION: FINDINGS LIKELY REPRESENT POSTOP SEROMA POSSIBLY COMPLICATED BY SMALL AMOUNT OF HEMORRHAGE.
[2017-03-22 16:06] VITALS: BP 118/70; PULSE 52; RESP 18; TEMP 98.1
== END 2017-03-22 16:06 | disposition home or self-care (01) ==
LOC: EC 11:12
DX: K91.873 Postprocedural seroma of a digestive system organ or structure following other procedure (principal); F41.9 Anxiety disorder, unspecified; F17.200 Nicotine dependence, unspecified, uncomplicated; Z90.49 Acquired absence of other specified parts of digestive tract; Z79.899 Other long term (current) drug therapy; Z88.6 Allergy status to analgesic agent; Z88.5 Allergy status to narcotic agent; W10.9XXA Fall (on) (from) unspecified stairs and steps, initial encounter
CPT/HCPCS: 36415; 80053; 82150; 83690; 85025; 81001; 81025; 74177; 99284; 96374; 96375; 96361 ×3; J1170; J1885; Q9967

== ENCOUNTER 2017-07-16 10:01 | Emergency (ER) | payer OTHER ==
[2017-07-16 10:13] VITALS: RESP 16
--- NOTE | 2017-07-16 11:16 | ED ---
Skin/Abscess/FB HPI - General Chief complaint: Skin/Abscess/Foreign Body Stated complaint: Mass on Surgical Scar Time Seen by Provider: 07/16/17 10:17 Source: patient, RN notes reviewed, old records reviewed Mode of arrival: ambulatory Limitations: no limitations - History of Present Illness Initial comments: 26-year-old female presents emergency Department chief complaint of swelling over her surgical scar. She reports she had a hernia repair by Dr. Pires few months ago. Patient states that over the past day she's noticed some irritation and pain over the right aspect of her surgical scar. No drainage from the site. No redness. No other symptoms. She denies any fever or chills. - Related Data Home Medications Medication Instructions Recorded Confirmed busPIRone HCL [Buspar] 7.5 mg PO BID 02/25/17 07/16/17 Previous Rx's Medication Instructions Recorded Cephalexin [Keflex] 500 mg PO Q8HR #21 cap 07/16/17 Allergies Allergy/AdvReac Type Severity Reaction Status Date / Time hydrocodone [From [place]] AdvReac Abdominal Verified 07/16/17 10:27 Pain Review of Systems ROS Statement: Those systems with pertinent positive or pertinent negative responses have been documented in the HPI. ROS Other: All systems not noted in ROS Statement are negative. Past Medical History Past Medical History: No Reported History Additional Past Medical History / Comment(s): abdominal pain,Hx OVARIAN CYSTS History of Any Multi-Drug Resistant Organisms: None Reported Past Surgical History: Bowel Resection, Section, Hernia Repair Additional Past Surgical History / Comment(s): colon biopsy, x2,mass removed from lower stomach 03/08/16 testing for CA. Past Anesthesia/Blood Transfusion Reactions: No Reported Reaction Past Psychological History: Anxiety Smoking Status: Current every day smoker Past Alcohol Use History: None Reported Past Drug Use History: None Reported - Past Family History Mother Family Medical History: No Reported History Father Family Medical History: No Reported History General Exam - General Exam Comments Initial Comments: 26-year-old female. Alert and oriented. No acute distress. Limitations: no limitations General appearance: alert, in no apparent distress Head exam: Present: atraumatic, normocephalic, normal inspection Eye exam: Present: normal appearance, PERRL, EOMI. Absent: scleral icterus, conjunctival injection, periorbital swelling ENT exam: Present: normal exam, mucous membranes moist Neck exam: Present: normal inspection. Absent: tenderness, meningismus, lymphadenopathy Respiratory exam: Present: normal lung sounds bilaterally. Absent: respiratory distress, wheezes, rales, rhonchi, stridor Cardiovascular Exam: Present: regular rate, normal rhythm, normal heart sounds. Absent: systolic murmur, diastolic murmur, rubs, gallop, clicks GI/Abdominal exam: Present: soft, normal bowel sounds, other (Patient has a incision site however her groin. There is a small area measuring 2 cm of a firm cyst or anything incision site.). Absent: distended, tenderness, guarding , rebound, rigid Extremities exam: Present: normal inspection, full ROM, normal capillary refill. Absent: tenderness, pedal edema, joint swelling, calf tenderness Back exam: Present: normal inspection Neurological exam: Present: alert, oriented X3, CN II-XII intact Psychiatric exam: Present: normal affect, normal mood Course Vital Signs 07/16/17 10:10 Temperature 98.3 F Pulse Rate 74 Respiratory 16 Rate Blood Pressure 131/84 O2 Sat by Pulse 98 Oximetry Procedures - Incision & Drainage Site: abdomen Size (cm): 2 Anesthetic Used: lidocaine 1% Amount (mLs): 3 I&D Cleaning Method: Iodine Sterile Field Used?: Yes Needle Aspiration Performed?: Yes I&D Drainage Obtained: Pus Culture Obtained?: No Patient Tolerated Procedure: well, no complications Medical Decision Making - Medical Decision Making 26-year-old female presents emergency Department with chief complaint of a area of irritation and swelling of her surgical scar. This patient has a deeper abscess or seroma. I have the patient and the size 1% lidocaine with 2 mm in the area. I used an 18-gauge needle and was able to remove a small amount of purulent fluid. Patient had no further treatment. Lump diminished after pressure. Patient will be placed on Keflex. Discussed she likely has a dermoid cyst in the area. Patient can follow-up with PCP or surgical consult. Patient understands treatment plan will comply. Return parameters were discussed. Disposition Clinical Impression: Surgical site reaction Disposition: HOME SELF-CARE Condition: Good Instructions: Abscess Incision and Drainage (ED) Additional Instructions: Patient follow-up with primary care provider. Return to emergency department if any alarming signs or symptoms occur. He can also follow-up with her surgeon. Apply warm compresses over the area. Prescriptions: Cephalexin [Keflex] 500 mg PO Q8HR #21 cap Is patient prescribed a controlled substance at d/c from ED?: No If prescribed controlled substance>3 days was MAPS reviewed?: No When asked, does pt state using other controlled substances?: No Referrals: Svetlana Sanford MD [Primary Care Provider] - 1-2 days Time of Disposition: 11:16
[2017-07-16 11:38] VITALS: BP 120/78; PULSE 88; TEMP 97.9
== END 2017-07-16 11:30 | disposition home or self-care (01) ==
LOC: EC 10:01
DX: L76.82 Other postprocedural complications of skin and subcutaneous tissue (principal); G89.18 Other acute postprocedural pain; R10.31 Right lower quadrant pain; F41.9 Anxiety disorder, unspecified; F17.200 Nicotine dependence, unspecified, uncomplicated; Z79.899 Other long term (current) drug therapy; Z88.5 Allergy status to narcotic agent; Z90.49 Acquired absence of other specified parts of digestive tract
CPT/HCPCS: 10160; 99283

== ENCOUNTER 2017-09-01 11:39 | Emergency (ER) | payer OTHER ==
[2017-09-01] MEDS ORDERED: SODIUM CHLORIDE 0.9% 1,000 ML IV STA ×2 (12:25)
[2017-09-01] MEDS ORDERED: KETOROLAC 30 MG/ML 1 ML VIAL IVP STA (12:28)
[2017-09-01 12:48] LABS: Basophils % (A) 0 %; Eosinophils # (A) 0.1 k/uL (0-0.7); Eosinophils % (A) 2 %; HCT 42.6 % (34.0-46.0); HGB 14.1 gm/dL (11.4-16.0); Lymphocytes # (A) 1.6 k/uL (1.0-4.8); Lymphocytes % (A) 27 %; MCH 30.2 pg (25.0-35.0); MCHC 33.2 g/dL (31.0-37.0); Mean Platelet Volume 7.3; Monocytes # (A) 0.2 k/uL (0-1.0); Monocytes % (A) 4 %; Neutrophils # (A) 3.7 k/uL (1.3-7.7); Neutrophils % (A) 65 %; Platelet Count 234 k/uL (150-450); RBC 4.68 m/uL (3.80-5.40); RDW 12.8 % (11.5-15.5); WBC 5.7 k/uL (3.8-10.6)
--- NOTE | 2017-09-01 12:56 | XR ---
EXAMINATION TYPE: XR chest 2V DATE OF EXAM: 09/01/2017 COMPARISON: Prior chest x-ray 01/11/2017 HISTORY: Chest pain TECHNIQUE: Frontal and lateral views of the chest are obtained. FINDINGS: There is no focal air space opacity, pleural effusion, or pneumothorax seen. The cardiac silhouette size is within normal limits. The osseous structures are intact. IMPRESSION: No acute cardiopulmonary process.
--- NOTE | 2017-09-01 13:01 | ED ---
Chest Pain HPI - General Chief Complaint: Chest Pain Stated Complaint: Chest Pain Time Seen by Provider: 09/01/17 12:07 Source: patient, RN notes reviewed, old records reviewed Mode of arrival: ambulatory Limitations: no limitations - History of Present Illness Initial Comments: This Patient is a 26-year-old female chief complaint of 3 days of intermittent left-sided chest pain. She reports a sharp and stabbing when it occurs. She reports that she has had no significant symptoms associated with it. She denies any shortness of breath. She is a smoker. Family history of heart disease. She denies any cough, nausea or vomiting. She reports this feels different than acid reflux. She does have a history of anxiety. She does relate that the pain occasionally will radiate towards her back.Patient denies any recent fever, chills, shortness of breath, back pain, abdominal pain, nausea vomiting, numbness or tingling, dysuria or hematuria, constipation or diarrhea, headaches or visual changes, or any other current symptoms - Related Data Home Medications Medication Instructions Recorded Confirmed busPIRone HCL [Buspar] 7.5 mg PO BID 02/25/17 07/16/17 Previous Rx's Medication Instructions Recorded Cephalexin [Keflex] 500 mg PO Q8HR #21 cap 07/16/17 Allergies Allergy/AdvReac Type Severity Reaction Status Date / Time hydrocodone [From [place]] AdvReac Abdominal Verified 09/01/17 11:45 Pain Review of Systems ROS Statement: Those systems with pertinent positive or pertinent negative responses have been documented in the HPI. ROS Other: All systems not noted in ROS Statement are negative. EKG Findings - EKG Comments: EKG Findings:: EKG performed at 1220 shows sinus with normal EKGs. Ventricular rate of 73 bpm. NE interval is 172 ms. QRS duration is 86 ms. QT QTc is 360/ 396 ms. No evidence of ST elevation or T-wave inversion. No evidence of atrial or ventricular arrhythmias. Past Medical History Past Medical History: No Reported History Additional Past Medical History / Comment(s): abdominal pain,Hx OVARIAN CYSTS History of Any Multi-Drug Resistant Organisms: None Reported Past Surgical History: Bowel Resection, Section, Hernia Repair Additional Past Surgical History / Comment(s): colon biopsy, x2,mass removed from lower stomach 03/08/16 testing for CA. Past Anesthesia/Blood Transfusion Reactions: No Reported Reaction Past Psychological History: Anxiety Smoking Status: Current every day smoker Past Alcohol Use History: None Reported Past Drug Use History: None Reported - Past Family History Mother Family Medical History: No Reported History Father Family Medical History: No Reported History General Exam - General Exam Comments Initial Comments: Patient is a well-appearing 26-year-old female. Alert and oriented. No acute distress. Limitations: no limitations General appearance: alert, in no apparent distress Head exam: Present: atraumatic, normocephalic, normal inspection Eye exam: Present: normal appearance, PERRL, EOMI. Absent: scleral icterus, conjunctival injection, periorbital swelling ENT exam: Present: normal exam, mucous membranes moist Neck exam: Present: normal inspection. Absent: tenderness, meningismus, lymphadenopathy Respiratory exam: Present: normal lung sounds bilaterally. Absent: respiratory distress, wheezes, rales, rhonchi, stridor Cardiovascular Exam: Present: regular rate, normal rhythm, normal heart sounds. Absent: systolic murmur, diastolic murmur, rubs, gallop, clicks GI/Abdominal exam: Present: soft, normal bowel sounds. Absent: distended, tenderness, guarding, rebound, rigid Extremities exam: Present: normal inspection, full ROM, normal capillary refill. Absent: tenderness, pedal edema, joint swelling, calf tenderness Back exam: Present: normal inspection Neurological exam: Present: alert, oriented X3, CN II-XII intact Psychiatric exam: Present: normal affect, normal mood Skin exam: Present: warm, dry, intact, normal color. Absent: rash Course Vital Signs 09/01/17 11:42 Temperature 98.1 F Pulse Rate 62 Respiratory 20 Rate Blood Pressure 124/85 O2 Sat by Pulse 100 Oximetry - Consultations Consultation #1: Patient is reevaluated this time. She is resting heavily bed. Reports that no further episodes of this chest pain. She does relate that is easily intermittent and in towards the end of the day. She does report that he could be related to anxiety. I discussed all laboratory findings with her and she agrees to follow-up with primary care physician. Chest Pain MDM - [facility] 26-year-old female with history of anxiety chief complaint of 3 days of intermittent left-sided chest pain. She reports it feels like a sharp stabbing pain in nature. Not reproducible this time. She denies any pain at this moment. Patient's labwork was reviewed and normal. EKG was normal sinus rhythm. No signs of ST elevation or T-wave inversions. No hypertrophy or arrhythmias. Chest x-ray was reviewed and unremarkable. Negative d-dimer. All the rest of her lab work including CMP, CBC are within normal limits. I discussed the patient's pain could be related to anxiety or possibly even a normal arrhythmia at that moment that the pain is occurring. I discussed that she should follow-up with her primary care physician but otherwise will be cleared at this time from the emergency department. Patient agrees to treatment plan will comply. Return parameters were discussed. Disposition Clinical Impression: Chest pain Disposition: HOME SELF-CARE Condition: Good Instructions: Chest Pain (ED) Additional Instructions: Patient advised to follow-up with primary care physician. Return to emergency department if any alarming signs or symptoms occur. Is patient prescribed a controlled substance at d/c from ED?: No When asked, does pt state using other controlled substances?: No If prescribed controlled substance>3 days was MAPS reviewed?: No If opioid is for acute pain is fill amount 7 days or less?: No If Rx opioid, was Start Talking consent form obtained?: No Referrals: Svetlana Sanford MD [Primary Care Provider] - 1-2 days Time of Disposition: 14:04
[2017-09-01 13:06] LABS: Creatine Kinase 47 U/L (30-135)
[2017-09-01 13:08] LABS: ALT 27 U/L (9-52); AST 28 U/L (14-36); Albumin 4.7 g/dL (3.5-5.0); Alkaline Phosphatase 50 U/L (38-126); Anion Gap 14 mmol/L; Blood Urea Nitrogen 13 mg/dL (7-17); Calcium 9.5 mg/dL (8.4-10.2); Carbon Dioxide 24 mmol/L (22-30); Chloride 105 mmol/L (98-107); Glucose 88 mg/dL (74-99); Lipase 37 U/L (23-300); Magnesium 1.9 mg/dL (1.6-2.3); Sodium 143 mmol/L (137-145); Total Bilirubin 0.7 mg/dL (0.2-1.3); Total Protein 7.9 g/dL (6.3-8.2)
[2017-09-01 13:10] LABS: Amylase 78 U/L (30-110); Potassium 4.5 mmol/L (3.5-5.1)
[2017-09-01 13:19] LABS: Creatine Kinase MB <0.2 ng/mL (0.0-2.4); Troponin I <0.012 ng/mL (0.000-0.034)
[2017-09-01 13:23] LABS: INR 1.1 (<1.2); Partial Thromboplastin Time 22.1 sec (22.0-30.0); Prothrombin Time 10.9 sec (9.0-12.0)
[2017-09-01 13:26] LABS: D-Dimer <0.17 mg/L FEU (<0.60)
[2017-09-01 14:19] VITALS: BP 122/70; PULSE 70; RESP 16; TEMP 98.3
== END 2017-09-01 14:18 | disposition home or self-care (01) ==
LOC: EC 11:39
DX: R07.9 Chest pain, unspecified (principal); F41.9 Anxiety disorder, unspecified; F17.200 Nicotine dependence, unspecified, uncomplicated; Z79.899 Other long term (current) drug therapy; Z88.5 Allergy status to narcotic agent
CPT/HCPCS: 36415; 93005; 85379; 80053; 82150; 82550; 82553; 83690; 83735; 84484; 85025; 85610; 85730; 71046; 99285; 96374; 96361; J1885

== ENCOUNTER 2017-09-22 19:44 | Emergency (ER) | payer OTHER ==
[2017-09-22 19:54] VITALS: BP 157/108; PULSE 107; RESP 24; TEMP 98.1
[2017-09-22] MEDS ORDERED: LORazepam 2 MG/ML INJ IM STA (20:40)
--- NOTE | 2017-09-22 20:43 | ED ---
Anxiety HPI - General Chief Complaint: Anxiety Stated Complaint: anxiety/trouble breathing Time Seen by Provider: 09/22/17 20:22 Source: patient Mode of arrival: ambulatory - History of Present Illness Initial Comments: 26-year-old female patient presents to the emergency department today for evaluation of increased anxiety and panic attacks. Patient states that she lost her insurance and she has not had her anxiety medication for the last week. Patient states that she had a really hard day today. States that her father has Alzheimer's and dementia and is no longer a support for her. States that her girlfriend of 4 years moved to [place] yesterday. Patient states that this has been extremely trying for her and his causes her anxiety to increased. Patient states that her symptoms include a hyperventilation, numbness and tingly to her bilateral arms, and muscle cramping. Patient states that she has had an anxiety attack similar to this about a year ago. Patient states that her medication usually controls it. Patient denies any recent rash, fever, chills, abdominal pain, nausea, vomiting, diarrhea, constipation, back pain, dizziness, weakness, hematuria, dysuria, urinary urgency, urinary frequency, headache, visual changes, or any other complaints. - Related Data Home Medications: Home Medications Medication Instructions Recorded Confirmed busPIRone HCL [Buspar] 7.5 mg PO BID 02/25/17 07/16/17 Previous Rx's Medication Instructions Recorded Cephalexin [Keflex] 500 mg PO Q8HR #21 cap 07/16/17 Allergies/Adverse Reactions: Allergies Allergy/AdvReac Type Severity Reaction Status Date / Time hydrocodone [From [place]] AdvReac Abdominal Verified 09/22/17 19:54 Pain Review of Systems ROS Statement: Those systems with pertinent positive or pertinent negative responses have been documented in the HPI. ROS Other: All systems not noted in ROS Statement are negative. Past Medical History Past Medical History: No Reported History Additional Past Medical History / Comment(s): abdominal pain,Hx OVARIAN CYSTS History of Any Multi-Drug Resistant Organisms: None Reported Past Surgical History: Bowel Resection, Section, Hernia Repair Additional Past Surgical History / Comment(s): colon biopsy, x2,mass removed from lower stomach 03/08/16 testing for CA. Past Anesthesia/Blood Transfusion Reactions: No Reported Reaction Past Psychological History: Anxiety, PTSD Smoking Status: Current every day smoker Past Alcohol Use History: None Reported Past Drug Use History: None Reported - Past Family History Mother Family Medical History: No Reported History Father Family Medical History: No Reported History General Exam Limitations: no limitations General appearance: alert, in no apparent distress, other (The well-developed, well-nourished adult female patient who is extremely anxious at this time. Vital signs upon presentation are temperature 98.1F, pulse 107, respirations 24 , blood pressure 157/108, pulse ox 99% on room air.) Eye exam: Present: normal appearance, PERRL, EOMI. Absent: scleral icterus, conjunctival injection, periorbital swelling ENT exam: Present: normal exam, normal oropharynx, mucous membranes moist Respiratory exam: Present: normal lung sounds bilaterally, other ( Hyperventilation). Absent: respiratory distress, wheezes, rales, rhonchi, stridor Cardiovascular Exam: Present: normal rhythm, tachycardia, normal heart sounds. Absent: systolic murmur, diastolic murmur, rubs, gallop, clicks GI/Abdominal exam: Present: soft, normal bowel sounds. Absent: distended, tenderness, guarding, rebound, rigid Neurological exam: Present: alert, oriented X3, CN II-XII intact Psychiatric exam: Present: anxious, other (Hyperventilation, crying uncontrollably) Skin exam: Present: warm, dry, intact, normal color. Absent: rash Course Vital Signs 09/22/17 19:49 Temperature 98.1 F Pulse Rate 107 H Respiratory 24 Rate Blood Pressure 157/108 O2 Sat by Pulse 99 Oximetry Medical Decision Making - Medical Decision Making 26-year-old female patient presented to the emergency department today for evaluation of increased anxiety. Patient is hyperventilating and crying throughout visit. States that she had a lot going on her leg. Denies any suicidal or homicidal ideation. She was given an IM dose of Ativan. This did improve her symptoms. She'll be discharged. She does have a ride home. She is instructed follow up with her primary care physician and outpatient mental health services. Return parameters discussed in detail. She verbalizes understanding and agrees with this plan. Disposition Clinical Impression: Anxiety Disposition: HOME SELF-CARE Condition: Good Instructions: Generalized Anxiety Disorder (ED) Additional Instructions: Follow-up with her primary care physician for recheck as soon as possible. Return here immediately for any new, worsening, or concerning symptoms. Is patient prescribed a controlled substance at d/c from ED?: No Referrals: Svetlana Sanford MD [Primary Care Provider] - 1-2 days
== END 2017-09-22 22:30 | disposition home or self-care (01) ==
LOC: EC 19:44
DX: F41.9 Anxiety disorder, unspecified (principal); R06.4 Hyperventilation; R20.0 Anesthesia of skin; F43.10 Post-traumatic stress disorder, unspecified; F17.200 Nicotine dependence, unspecified, uncomplicated; Z79.899 Other long term (current) drug therapy; Z88.5 Allergy status to narcotic agent
CPT/HCPCS: 99283; 96372; J2060

== ENCOUNTER 2017-10-03 20:52 | Emergency (ER) | payer OTHER ==
--- NOTE | 2017-10-03 21:30 | ED ---
Psych HPI - General Chief Complaint: Psychiatric Symptoms Stated Complaint: Mental Health Time Seen by Provider: 10/03/17 21:10 Source: patient Mode of arrival: ambulatory - History of Present Illness Initial Comments: This patient is 26-year-old woman who presents to be evaluated for depressed mood and thoughts of harming herself. The patient states that she has had a history of some anxiety and previous cutting behavior. She states that she recently had a girlfriend leave her. She states that today her father and this really has caused her to have some thoughts of harming herself. She presents for help in dealing with the results. MD Complaint: suicidal ideation, feels depressed Onset/Timin -: days(s) Associated Psychiatric Symptoms: depression, suicidal ideation History of same: No Quality: getting worse Improves With: none Worsens With: none Context: significant life stressor Associated Symptoms: denies other symptoms - Related Data Home Medications Medication Instructions Recorded Confirmed busPIRone HCL [Buspar] 7.5 mg PO BID 02/25/17 07/16/17 Previous Rx's Medication Instructions Recorded Cephalexin [Keflex] 500 mg PO Q8HR #21 cap 07/16/17 Allergies Allergy/AdvReac Type Severity Reaction Status Date / Time hydrocodone [From [place]] AdvReac Abdominal Verified 10/03/17 21:08 Pain Review of Systems ROS Statement: Those systems with pertinent positive or pertinent negative responses have been documented in the HPI. ROS Other: All systems not noted in ROS Statement are negative. Constitutional: Denies: fever Respiratory: Denies: cough, dyspnea Cardiovascular: Denies: chest pain, palpitations, syncope Gastrointestinal: Denies: abdominal pain, vomiting, diarrhea Genitourinary: Denies: dysuria, hematuria Musculoskeletal: Denies: back pain Skin: Denies: rash Neurological: Denies: headache Psychiatric: Reports: anxiety, depression, suicidal thoughts. Denies: auditory hallucinations, visual hallucinations, homicidal thoughts Past Medical History Past Medical History: No Reported History Additional Past Medical History / Comment(s): abdominal pain,Hx OVARIAN CYSTS History of Any Multi-Drug Resistant Organisms: None Reported Past Surgical History: Bowel Resection, Section, Hernia Repair Additional Past Surgical History / Comment(s): colon biopsy, x2,mass removed from lower stomach 03/08/16 testing for CA. Past Anesthesia/Blood Transfusion Reactions: No Reported Reaction Past Psychological History: Anxiety, PTSD Smoking Status: Current every day smoker Past Alcohol Use History: None Reported Past Drug Use History: None Reported - Past Family History Mother Family Medical History: No Reported History Father Family Medical History: No Reported History General Exam Limitations: no limitations General appearance: alert, in no apparent distress Head exam: Present: atraumatic, normocephalic Eye exam: Present: normal appearance, PERRL, EOMI. Absent: scleral icterus, conjunctival injection ENT exam: Present: normal oropharynx Respiratory exam: Present: normal lung sounds bilaterally. Absent: respiratory distress, wheezes, rales, rhonchi, stridor Cardiovascular Exam: Present: regular rate, normal rhythm, normal heart sounds. Absent: systolic murmur, diastolic murmur, rubs, gallop GI/Abdominal exam: Present: soft. Absent: distended, tenderness, guarding, rebound, mass Extremities exam: Present: normal inspection, normal capillary refill. Absent: pedal edema, calf tenderness Neurological exam: Present: alert Psychiatric exam: Present: anxious, suicidal ideation. Absent: agitated, flat affect, manic, homicidal ideation Skin exam: Present: warm, dry, intact, normal color. Absent: rash Course Vital Signs 10/03/17 21:04 Temperature 99.3 F Pulse Rate 112 H Respiratory 20 Rate Blood Pressure 121/82 O2 Sat by Pulse 98 Oximetry Medical Decision Making - Medical Decision Making Patient is seen by behavioral health and they have formulated a plan to help her with what is going on. She will go and stay with a friend quiana. If she is faced with being alone she'll return here. If there is worsening in any way they will call 911 to be re-seen. Disposition Clinical Impression: Adjustment reaction Disposition: HOME SELF-CARE Condition: Good Instructions: Mood Disorders (ED) Is patient prescribed a controlled substance at d/c from ED?: No Referrals: Svetlana Sanford MD [Primary Care Provider] - 1-2 days
[2017-10-03 23:11] VITALS: BP 126/75; PULSE 76; RESP 18; TEMP 97.6
== END 2017-10-03 23:11 | disposition home or self-care (01) ==
LOC: EC 20:52
DX: F43.23 Adjustment disorder with mixed anxiety and depressed mood (principal); F43.10 Post-traumatic stress disorder, unspecified; F17.200 Nicotine dependence, unspecified, uncomplicated; Z79.899 Other long term (current) drug therapy; Z88.5 Allergy status to narcotic agent
CPT/HCPCS: 82075; 99285

== ENCOUNTER 2018-05-02 00:06 | Emergency (ER) | payer OTHER ==
[2018-05-02 00:16] VITALS: BP 133/84; PULSE 76; RESP 16; TEMP 98.5
--- NOTE | 2018-05-02 00:31 | ED ---
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 Amelia reports that last week she noted that she broke a tooth and had a sharp spot sticking out a tooth. This resulted in injury to the nuchal surface of her cheek. Patient reports that the area becomes swollen she continues to bite and irritated. She states that she does have a follow-up visit with dentist next week. Patient states that she is just uncomfortable due to the sore on her cheek and wanted to come to the ER to be evaluated, she states she was concerned that if she developed any infection her dentist wanted to see her so she wanted make sure there was no infection and antibiotics if there was any. She denies additional complaints. - Related Data Home Medications Medication Instructions Recorded Confirmed busPIRone HCL [Buspar] 7.5 mg PO BID 02/25/17 07/16/17 Previous Rx's Medication Instructions Recorded Cephalexin [Keflex] 500 mg PO Q8HR #21 cap 07/16/17 Allergies Allergy/AdvReac Type Severity Reaction Status Date / Time hydrocodone [From [place]] AdvReac Abdominal Verified 05/02/18 00:16 Pain Review of Systems ROS Statement: Those systems with pertinent positive or pertinent negative responses have been documented in the HPI. ROS Other: All systems not noted in ROS Statement are negative. Past Medical History Past Medical History: No Reported History Additional Past Medical History / Comment(s): abdominal pain,Hx OVARIAN CYSTS History of Any Multi-Drug Resistant Organisms: None Reported Past Surgical History: Bowel Resection, Section, Hernia Repair Additional Past Surgical History / Comment(s): colon biopsy, x2,mass removed from lower stomach 03/08/16 testing for CA. Past Anesthesia/Blood Transfusion Reactions: No Reported Reaction Past Psychological History: Anxiety, PTSD Smoking Status: Current every day smoker Past Alcohol Use History: None Reported Past Drug Use History: None Reported - Past Family History Mother Family Medical History: No Reported History Father Family Medical History: No Reported History General Exam - General Exam Comments Initial Comments: Physical Exam GENERAL: Patient is well-developed and well-nourished. Patient is nontoxic and well- hydrated and is in no distress. HENT: Normocephalic, Atraumatic. Poor dentition Left cheek does have area of irritation approximately 7mm in diameter - no surrounding erythema or signs of infection EYES: PERRL, EOMI PULMONARY: Unlabored respirations. CARDIOVASCULAR: Normal rate ABDOMEN: non distended SKIN: Skin is clear with no lesions or rashes and otherwise unremarkable. : Deferred NEUROLOGIC: Patient is alert and oriented x3. Moving all extremities spontaneously MUSCULOSKELETAL: Normal extremities with adequate strength and full range of motion. No lower extremity swelling or edema. No calf tenderness. PSYCHIATRIC: Normal psychiatric evaluation. Limitations: no limitations Limitations: no limitations Course Vital Signs 05/02/18 00:13 Temperature 98.5 F Pulse Rate 76 Respiratory 16 Rate Blood Pressure 133/84 O2 Sat by Pulse 100 Oximetry Medical Decision Making - Medical Decision Making Patient was seen and evaluated history is obtained from the patient. Patient with a broken tooth an injury to her left cheek concern that if she has infection her dentist will not see her or pull her tooth therefore she came to the ER for evaluation. Patient is no signs of infection she does have an area of irritation to the left cheek. I advised the patient that she should be able to bite dental wax which she can apply over the sharp broken part of her tooth to protect her cheek. Patient's breast understanding this. Patient agreeable with plan for discharge home and outpatient follow-up. Disposition Clinical Impression: Broken tooth, Cheek abrasion, non-infected Disposition: HOME SELF-CARE Condition: Good Instructions (If sedation given, give patient instructions): Acute Dental Trauma (ED) Additional Instructions: Applied dental wax to the broken tooth to prevent further abrasion to the cheek Is patient prescribed a controlled substance at d/c from ED?: No Referrals: Svetlana Sanford MD [Primary Care Provider] - 1-2 days
== END 2018-05-02 00:38 | disposition home or self-care (01) ==
LOC: EC 00:06
DX: S02.5XXA Fracture of tooth (traumatic), initial encounter for closed fracture (principal); S00.512A Abrasion of oral cavity, initial encounter; F41.9 Anxiety disorder, unspecified; F17.200 Nicotine dependence, unspecified, uncomplicated; Z79.899 Other long term (current) drug therapy; Z88.5 Allergy status to narcotic agent; X58.XXXA Exposure to other specified factors, initial encounter
CPT/HCPCS: 99283

== ENCOUNTER 2018-11-11 14:50 | Emergency (ER) | payer OTHER ==
[2018-11-11 14:59] VITALS: RESP 16
[2018-11-11 16:15] LABS: Basophils # (A) 0.1 k/uL (0-0.2); Basophils % (A) 1 %; Eosinophils # (A) 0.1 k/uL (0-0.7); Eosinophils % (A) 2 %; HCT 39.4 % (34.0-46.0); HGB 13.4 gm/dL (11.4-16.0); Lymphocytes # (A) 2.2 k/uL (1.0-4.8); Lymphocytes % (A) 26 %; MCV 91.4 fL (80.0-100.0); Mean Platelet Volume 7.3; Monocytes # (A) 0.3 k/uL (0-1.0); Monocytes % (A) 4 %; Neutrophils # (A) 5.4 k/uL (1.3-7.7); Neutrophils % (A) 66 %; Platelet Count 261 k/uL (150-450); RBC 4.31 m/uL (3.80-5.40); RDW 14.9 % (11.5-15.5); WBC 8.2 k/uL (3.8-10.6)
[2018-11-11 16:28] LABS: ALT 35 U/L (9-52); AST 28 U/L (14-36); African American GFR (CKD) >90 (>60 ml/min/1.73 sqM); Albumin 4.6 g/dL (3.5-5.0); Alkaline Phosphatase 58 U/L (38-126); Anion Gap 8 mmol/L; Blood Urea Nitrogen 18 mg/dL (7-17); Calcium 9.8 mg/dL (8.4-10.2); Carbon Dioxide 26 mmol/L (22-30); Chloride 106 mmol/L (98-107); Glucose 91 mg/dL (74-99); Non-African American GFR(CKD) >90 (>60 ml/min/1.73 sqM); Potassium 3.9 mmol/L (3.5-5.1); Sodium 140 mmol/L (137-145); Total Bilirubin 0.6 mg/dL (0.2-1.3); Total Protein 7.6 g/dL (6.3-8.2)
--- NOTE | 2018-11-11 16:51 | ED ---
GI Bleed HPI - General Chief complaint: GI Bleed Stated complaint: Rectal bleeding Time Seen by Provider: 11/11/18 15:09 Source: patient Mode of arrival: ambulatory Limitations: no limitations - History of Present Illness Initial comments: 28yo female presenting today for chief complaint rectal bleeding. Patient states the last 24 hours she is had 2 episodes of bleeding from the rectum. Patient states she has not had said since this morning. Patient states she has had cramping this past week she thought it felt more so pelvic in nature. Patient denies any current abdominal pain or cramping. Patient denies dysuria urgency frequency. Patient states that she has had a previous removal of a hemorrhoid in the past. Patient states that she has not sure if this is the cause. Patient denies any vomiting fevers. Patient denies any other symptoms remaining review of systems negative upon arrival patient appears well besides acute distress. Heart rate and blood pressure within acceptable limits. Patient appears well smiling nontoxic - Related Data Home Medications Medication Instructions Recorded Confirmed busPIRone HCL [Buspar] 7.5 mg PO BID 02/25/17 07/16/17 Previous Rx's Medication Instructions Recorded Cephalexin [Keflex] 500 mg PO Q8HR #21 cap 07/16/17 Allergies Allergy/AdvReac Type Severity Reaction Status Date / Time hydrocodone [From [place]] AdvReac Abdominal Verified 11/11/18 14:58 Pain Review of Systems ROS Statement: Those systems with pertinent positive or pertinent negative responses have been documented in the HPI. ROS Other: All systems not noted in ROS Statement are negative. Past Medical History Past Medical History: No Reported History Additional Past Medical History / Comment(s): abdominal pain,Hx OVARIAN CYSTS History of Any Multi-Drug Resistant Organisms: None Reported Past Surgical History: Bowel Resection, Section, Hernia Repair Additional Past Surgical History / Comment(s): colon biopsy, x2,mass removed from lower stomach 03/08/16 testing for CA. Past Anesthesia/Blood Transfusion Reactions: No Reported Reaction Past Psychological History: Anxiety, PTSD Smoking Status: Current every day smoker Past Alcohol Use History: None Reported Past Drug Use History: None Reported - Past Family History Mother Family Medical History: No Reported History Father Family Medical History: No Reported History General Exam - General Exam Comments Initial Comments: General: The patient is awake and alert, in no distress, and does not appear acutely ill. Eye: Pupils are equal, round and reactive to light, extra-ocular movements are intact. No nystagmus. There is normal conjunctiva bilaterally. No signs of icterus. Ears, nose, mouth and throat: There are moist mucous membranes and no oral lesions. Neck: The neck is supple, there is no tenderness or JVD. Cardiovascular: There is a regular rate and rhythm. No murmur, rub or gallop is appreciated. Respiratory: Lungs are clear to auscultation, respirations are non-labored, breath sounds are equal. No wheezes, stridor, rales, or rhonchi. Gastrointestinal: Soft, non-distended, non-tender abdomen without masses or organomegaly noted. There is no rebound or guarding present. Rectal palpable lesion what feel like a soft hemorrhoid at the 12oclock position. No significant pain. No fissures no primo blood on finger noted. No rectal external lesions. Musculoskeletal: Normal ROM, no tenderness. Strength 5/5. Sensation intact. Pulses equal bilaterally 2+. Neurological: A&O x 3. CN II-XII intact, There are no obvious motor or sensory deficits. Coordination appears grossly intact. Speech is normal. Skin: Skin is warm and dry and no rashes or lesions are noted. Psychiatric: Cooperative, appropriate mood & affect, normal judgment. Limitations: no limitations Course Vital Signs 11/11/18 14:56 Temperature 98.5 F Pulse Rate 61 Respiratory 16 Rate Blood Pressure 120/77 O2 Sat by Pulse 100 Oximetry Medical Decision Making - Medical Decision Making 28yo female presents today for chief complaint of rectal bleeding. Total of 2 episodes. History of hemorrhoids. Patient has established relationship with surgeon. Patient has not had additional episodes. Patient has no primo blood on rectal examination. She is hemodynamically stable. Asymptomatic currently. At this time after discussing case Rodney provider we feel she is stable for discharge with outpatient surgical follow-up. Patient is agreeable to this care plan discharge at this time. Return parameters were discussed at length in a detailed patient verbalized importance. - Lab Data Result diagrams: 11/11/18 16:00 11/11/18 16:00 Lab Results 11/11/18 11/11/18 Range/Units 16:00 16:00 WBC 8.2 (3.8-10.6) k/uL RBC 4.31 (3.80-5.40) m/uL Hgb 13.4 (11.4-16.0) gm/dL Hct 39.4 (34.0-46.0) % MCV 91.4 (80.0-100.0) fL MCH 31.0 (25.0-35.0) pg MCHC 34.0 (31.0-37.0) g/dL RDW 14.9 (11.5-15.5) % Plt Count 261 (150-450) k/uL Neutrophils % 66 % Lymphocytes % 26 % Monocytes % 4 % Eosinophils % 2 % Basophils % 1 % Neutrophils # 5.4 (1.3-7.7) k/uL Lymphocytes # 2.2 (1.0-4.8) k/uL Monocytes # 0.3 (0-1.0) k/uL Eosinophils # 0.1 (0-0.7) k/uL Basophils # 0.1 (0-0.2) k/uL Sodium 140 (137-145) mmol/L Potassium 3.9 (3.5-5.1) mmol/L Chloride 106 (98-107) mmol/L Carbon Dioxide 26 (22-30) mmol/L Anion Gap 8 mmol/L BUN 18 H (7-17) mg/dL Creatinine 0.86 (0.52-1.04) mg/dL Est GFR (CKD-EPI)AfAm >90 (>60 ml/min/1.73 sqM) Est GFR (CKD-EPI)NonAf >90 (>60 ml/min/1.73 sqM) Glucose 91 (74-99) mg/dL Calcium 9.8 (8.4-10.2) mg/dL Total Bilirubin 0.6 (0.2-1.3) mg/dL AST 28 (14-36) U/L ALT 35 (9-52) U/L Alkaline Phosphatase 58 (38-126) U/L Total Protein 7.6 (6.3-8.2) g/dL Albumin 4.6 (3.5-5.0) g/dL Disposition Clinical Impression: Rectal bleeding Disposition: HOME SELF-CARE Condition: Good Instructions (If sedation given, give patient instructions): Rectal Bleeding (ED) Additional Instructions: Please use medication as discussed. Please follow-up with family doctor in the next 2 days, please follow-up with Gen. surgery as discussed contact his below. Please return to emergency room if the symptoms increase or worsen or for any other concerns recurrent rectal bleeding heavy rectal bleeding lightheadedness abdominal pain. Is patient prescribed a controlled substance at d/c from ED?: No Referrals: Svetlana Sanford MD [Primary Care Provider] - 1-2 days Tejinder Bartlett MD [STAFF PHYSICIAN] - 1-2 days Time of Disposition: 16:49
[2018-11-11 17:29] VITALS: BP 124/56; PULSE 67; TEMP 97.9
== END 2018-11-11 17:15 | disposition home or self-care (01) ==
LOC: EC 14:50
DX: K62.5 Hemorrhage of anus and rectum (principal); K62.89 Other specified diseases of anus and rectum; F41.9 Anxiety disorder, unspecified; F17.200 Nicotine dependence, unspecified, uncomplicated; Z88.5 Allergy status to narcotic agent; Z79.899 Other long term (current) drug therapy; Z90.49 Acquired absence of other specified parts of digestive tract
CPT/HCPCS: 36415; 80053; 85025; 99283

== ENCOUNTER 2019-03-16 14:44 | Emergency (ER) | payer OTHER ==
[2019-03-16] MEDS ORDERED: PANTOPRAZOLE 40 MG/10 ML VIAL IVP STA (15:00)
[2019-03-16] MEDS ORDERED: SODIUM CHLORIDE 0.9% 1,000 ML IV STA (15:00)
[2019-03-16] MEDS ORDERED: KETOROLAC 30 MG/ML 1 ML VIAL IVP STA (15:01)
--- NOTE | 2019-03-16 15:03 | ED ---
General Adult HPI - General Source: patient, RN notes reviewed, old records reviewed Mode of arrival: ambulatory Limitations: no limitations <Judy Harrison - Last Filed: 03/16/19 16:57> <Mendoza Mena - Last Filed: 03/16/19 18:43> - General Chief complaint: Chest Pain Stated complaint: Chest pain, spot on chest Time Seen by Provider: 03/16/19 14:51 - History of Present Illness Initial comments: Patient is a 28 showed female who presents for extremity with 3 days of chest pain. Patient reports that she has a pressure as if she swallowed a "large watermelon" and upper chest". Patient states that she has had no coughing. She denies any social shortness of breath. She does report that she has a somewhat sick to her stomach and does complain of nausea. Patient states that she has had no associated fevers or chills. Patient is a smoker. She denies any chance of . Patient states that she has been also having some left-sided lower abdominal pain as well. Patient denies any dysuria or hematuria (Judy Harrison) - Related Data Home Medications Medication Instructions Recorded Confirmed busPIRone HCL [Buspar] 7.5 mg PO BID 02/25/17 07/16/17 Previous Rx's Medication Instructions Recorded Cephalexin [Keflex] 500 mg PO Q8HR #21 cap 07/16/17 Fluconazole [Diflucan] 150 mg PO DIRECTED #3 tab 03/16/19 Nitrofurantoin Monohyd/M-Cryst 100 mg PO Q12HR #14 cap 03/16/19 [Macrobid] Omeprazole 40 mg PO DAILY #40 capsule. 03/16/19 Allergies Allergy/AdvReac Type Severity Reaction Status Date / Time hydrocodone [From [place]] AdvReac Abdominal Verified 03/16/19 14:50 Pain Review of Systems ROS Other: All systems not noted in ROS Statement are negative. <Judy Harrison - Last Filed: 03/16/19 16:57> ROS Other: All systems not noted in ROS Statement are negative. <Mendoza Mena - Last Filed: 03/16/19 18:43> ROS Statement: Those systems with pertinent positive or pertinent negative responses have been documented in the HPI. Past Medical History Past Medical History: No Reported History Additional Past Medical History / Comment(s): abdominal pain,Hx OVARIAN CYSTS History of Any Multi-Drug Resistant Organisms: None Reported Past Surgical History: Bowel Resection, Section, Hernia Repair Additional Past Surgical History / Comment(s): colon biopsy, x2,mass removed from lower stomach 03/08/16 testing for CA. Past Anesthesia/Blood Transfusion Reactions: No Reported Reaction Past Psychological History: Anxiety, PTSD Smoking Status: Current every day smoker Past Alcohol Use History: None Reported Past Drug Use History: None Reported - Past Family History Mother Family Medical History: No Reported History Father Family Medical History: No Reported History <Judy Harrison - Last Filed: 03/16/19 16:57> General Exam Limitations: no limitations General appearance: alert Head exam: Present: atraumatic, normocephalic, normal inspection Eye exam: Present: normal appearance, PERRL, EOMI. Absent: scleral icterus, conjunctival injection, periorbital swelling ENT exam: Present: normal exam, mucous membranes moist Neck exam: Present: normal inspection. Absent: tenderness, meningismus, lymphadenopathy Respiratory exam: Present: normal lung sounds bilaterally. Absent: respiratory distress, wheezes, rales, rhonchi, stridor Cardiovascular Exam: Present: regular rate, normal rhythm, normal heart sounds. Absent: systolic murmur, diastolic murmur, rubs, gallop, clicks GI/Abdominal exam: Present: soft, tenderness (minimal left abdomianl tenerness), normal bowel sounds. Absent: distended, guarding, rebound, rigid Extremities exam: Present: normal inspection, full ROM, normal capillary refill. Absent: tenderness, pedal edema, joint swelling, calf tenderness Back exam: Present: normal inspection Neurological exam: Present: alert, oriented X3, CN II-XII intact Psychiatric exam: Present: normal affect, normal mood Skin exam: Present: warm <Judy Harrison - Last Filed: 03/16/19 16:57> - General Exam Comments Initial Comments: 28 year old female. Alert and oriented 3. (Judy Harrison) Course Vital Signs 03/16/19 03/16/19 14:45 17:29 Temperature 99.0 F 97.9 F Pulse Rate 110 H 71 Respiratory 22 18 Rate Blood Pressure 143/93 118/70 O2 Sat by Pulse 99 99 Oximetry EKG Findings - EKG Comments: EKG Findings:: EKG shows essentially normal EKG. Ventricular rate 82 bpm. Was 166 most seconds. Respirations 84 ms. QT QTc is 356/450 ms. <HunterJudy - Last Filed: 03/16/19 16:57> Medical Decision Making - Lab Data Result diagrams: 03/16/19 15:15 03/16/19 15:15 - Radiology Data Radiology results: report reviewed <Judy Harrison - Last Filed: 03/16/19 16:57> - Lab Data Result diagrams: 03/16/19 15:15 03/16/19 15:15 <Mendoza Mena - Last Filed: 03/16/19 18:43> - Medical Decision Making 28-year-old female presents emergency with epigastric and substernal chest pain. Patient's pain seemed to be more related to gastritis she does complain of some nausea. Patient's EKG and blood work was reviewed and unremarkable. She does have a mild urinary tract infection. Positive nitrates. Urine culture will be completed. She states that she does frequently get yeast infections after antibiotics dose of Diflucan. I discussed treatment for the gastritis with change in diet as well as putting Patient on Protonix. Patient is agreeable to treatment plan will comply. Request a work note. (Judy Harrison) - Lab Data Lab Results 03/16/19 03/16/19 03/16/19 Range/Units 15:15 15:15 15:15 WBC 7.5 (3.8-10.6) k/uL RBC 4.33 (3.80-5.40) m/uL Hgb 13.4 (11.4-16.0) gm/dL Hct 38.7 (34.0-46.0) % MCV 89.4 (80.0-100.0) fL MCH 30.9 (25.0-35.0) pg MCHC 34.5 (31.0-37.0) g/dL RDW 12.5 (11.5-15.5) % Plt Count 235 (150-450) k/uL Neutrophils % 69 % Lymphocytes % 24 % Monocytes % 4 % Eosinophils % 2 % Basophils % 0 % Neutrophils # 5.2 (1.3-7.7) k/uL Lymphocytes # 1.8 (1.0-4.8) k/uL Monocytes # 0.3 (0-1.0) k/uL Eosinophils # 0.1 (0-0.7) k/uL Basophils # 0.0 (0-0.2) k/uL PT 10.8 (9.0-12.0) sec INR 1.0 (<1.2) APTT 24.3 (22.0-30.0) sec Sodium 139 (137-145) mmol/L Potassium 3.7 (3.5-5.1) mmol/L Chloride 109 H (98-107) mmol/L Carbon Dioxide 22 (22-30) mmol/L Anion Gap 8 mmol/L BUN 12 (7-17) mg/dL Creatinine 0.65 (0.52-1.04) mg/dL Est GFR (CKD-EPI)AfAm >90 (>60 ml/min/1.73 sqM) Est GFR (CKD-EPI)NonAf >90 (>60 ml/min/1.73 sqM) Glucose 92 (74-99) mg/dL Calcium 9.7 (8.4-10.2) mg/dL Total Bilirubin 0.8 (0.2-1.3) mg/dL AST 24 (14-36) U/L ALT 19 (4-34) U/L Alkaline Phosphatase 65 (38-126) U/L Troponin I (0.000-0.034) ng/mL Total Protein 8.1 (6.3-8.2) g/dL Albumin 4.7 (3.5-5.0) g/dL Amylase 60 (30-110) U/L Lipase 49 (23-300) U/L Urine Color Urine Appearance (Clear) Urine pH (5.0-8.0) Ur Specific [place] (1.001-1.035) Urine Protein (Negative) Urine Glucose (UA) (Negative) Urine Ketones (Negative) Urine Blood (Negative) Urine Nitrite (Negative) Urine Bilirubin (Negative) Urine Urobilinogen (<2.0) mg/dL Ur Leukocyte Esterase (Negative) Urine RBC (0-5) /hpf Urine WBC (0-5) /hpf Ur Squamous Epith Cells (0-4) /hpf Urine Bacteria (None) /hpf Urine Mucus (None) /hpf Urine HCG, Qual (Not Detectd) 03/16/19 03/16/19 03/16/19 Range/Units 15:15 15:20 15:20 WBC (3.8-10.6) k/uL RBC (3.80-5.40) m/uL Hgb (11.4-16.0) gm/dL Hct (34.0-46.0) % MCV (80.0-100.0) fL MCH (25.0-35.0) pg MCHC (31.0-37.0) g/dL RDW (11.5-15.5) % Plt Count (150-450) k/uL Neutrophils % % Lymphocytes % % Monocytes % % Eosinophils % % Basophils % % Neutrophils # (1.3-7.7) k/uL Lymphocytes # (1.0-4.8) k/uL Monocytes # (0-1.0) k/uL Eosinophils # (0-0.7) k/uL Basophils # (0-0.2) k/uL PT (9.0-12.0) sec INR (<1.2) APTT (22.0-30.0) sec Sodium (137-145) mmol/L Potassium (3.5-5.1) mmol/L Chloride (98-107) mmol/L Carbon Dioxide (22-30) mmol/L Anion Gap mmol/L BUN (7-17) mg/dL Creatinine (0.52-1.04) mg/dL Est GFR (CKD-EPI)AfAm (>60 ml/min/1.73 sqM) Est GFR (CKD-EPI)NonAf (>60 ml/min/1.73 sqM) Glucose (74-99) mg/dL Calcium (8.4-10.2) mg/dL Total Bilirubin (0.2-1.3) mg/dL AST (14-36) U/L ALT (4-34) U/L Alkaline Phosphatase (38-126) U/L Troponin I <0.012 (0.000-0.034) ng/mL Total Protein (6.3-8.2) g/dL Albumin (3.5-5.0) g/dL Amylase (30-110) U/L Lipase (23-300) U/L Urine Color Yellow Urine Appearance Cloudy H (Clear) Urine pH 8.0 (5.0-8.0) Ur Specific [place] 1.019 (1.001-1.035) Urine Protein Trace H (Negative) Urine Glucose (UA) Negative (Negative) Urine Ketones Trace H (Negative) Urine Blood Negative (Negative) Urine Nitrite Positive H (Negative) Urine Bilirubin Negative (Negative) Urine Urobilinogen <2.0 (<2.0) mg/dL Ur Leukocyte Esterase Small H (Negative) Urine RBC 1 (0-5) /hpf Urine WBC 15 H (0-5) /hpf Ur Squamous Epith Cells 9 H (0-4) /hpf Urine Bacteria Occasional H (None) /hpf Urine Mucus Many H (None) /hpf Urine HCG, Qual Not Detected (Not Detectd) 03/16/19 15:20 EKG performed at 1500 shows normal sinus rhythm normal ECG. Ventricular rate of 82 bpm. Intervals 166 most seconds. QRS duration is 84 ms. QT QTc is 356/06/06/2014 milliseconds. (Judy Harrison) - Radiology Data Chest x-rays negative for any acute cardiopulmonary process. Patient's KUB does show some mild constipation. (Judy Harrison) Disposition Is patient prescribed a controlled substance at d/c from ED?: No Time of Disposition: 16:58 <Judy Harrison - Last Filed: 03/16/19 16:57> <Mendoza Mena - Last Filed: 03/16/19 18:43> Clinical Impression: UTI (urinary tract infection), Gastritis Disposition: HOME SELF-CARE Condition: Good Instructions (If sedation given, give patient instructions): Diet for Stomach Ulcers and Gastritis (ED) Additional Instructions: Please use medication as discussed. Please follow up with family doctor if symptoms have not improved over the next two days. Please return to the emergency room if your symptoms increase or worsen or for any other concerns. Prescriptions: Fluconazole [Diflucan] 150 mg PO DIRECTED #3 tab Nitrofurantoin Monohyd/M-Cryst [Macrobid] 100 mg PO Q12HR #14 cap Omeprazole 40 mg PO DAILY #40 capsule.dr Referrals: Svetlana Sanford MD [Primary Care Provider] - 1-2 days
[2019-03-16] MEDS ORDERED: ONDANSETRON 4 MG/2 ML VIAL IVP STA (15:23)
[2019-03-16 15:36] LABS: Basophils % (A) 0 %; Eosinophils # (A) 0.1 k/uL (0-0.7); Eosinophils % (A) 2 %; HCT 38.7 % (34.0-46.0); HGB 13.4 gm/dL (11.4-16.0); Lymphocytes # (A) 1.8 k/uL (1.0-4.8); Lymphocytes % (A) 24 %; MCH 30.9 pg (25.0-35.0); MCHC 34.5 g/dL (31.0-37.0); MCV 89.4 fL (80.0-100.0); Mean Platelet Volume 8.1; Monocytes # (A) 0.3 k/uL (0-1.0); Monocytes % (A) 4 %; Neutrophils # (A) 5.2 k/uL (1.3-7.7); Neutrophils % (A) 69 %; Platelet Count 235 k/uL (150-450); RBC 4.33 m/uL (3.80-5.40); RDW 12.5 % (11.5-15.5); WBC 7.5 k/uL (3.8-10.6)
[2019-03-16 15:38] LABS: Appearance,Urine Cloudy (Clear); Bacteria,Urine Occasional /hpf; Bilirubin,Urine Negative (Negative); Blood,Urine Negative (Negative); Color,Urine Yellow; Glucose,Urine (UA) Negative (Negative); Ketones,Urine Trace (Negative); Leukocyte Esterase,Urine Small (Negative); Mucus,Urine Many /hpf; Nitrite,Urine Positive (Negative); Protein,Urine Trace (Negative); RBC,Urine 1 /hpf (0-5); Specific Gravity,Urine 1.019 (1.001-1.035); Squamous Epithelial Cell,Urine 9 /hpf (0-4); Urobilinogen,Urine <2.0 mg/dL (<2.0); WBC,Urine 15 /hpf (0-5)
[2019-03-16 15:38] LABS: ALT 19 U/L (4-34); AST 24 U/L (14-36); African American GFR (CKD) >90 (>60 ml/min/1.73 sqM); Albumin 4.7 g/dL (3.5-5.0); Alkaline Phosphatase 65 U/L (38-126); Amylase 60 U/L (30-110); Anion Gap 8 mmol/L; Blood Urea Nitrogen 12 mg/dL (7-17); Calcium 9.7 mg/dL (8.4-10.2); Carbon Dioxide 22 mmol/L (22-30); Chloride 109 mmol/L (98-107); Glucose 92 mg/dL (74-99); Non-African American GFR(CKD) >90 (>60 ml/min/1.73 sqM); Potassium 3.7 mmol/L (3.5-5.1); Sodium 139 mmol/L (137-145); Total Bilirubin 0.8 mg/dL (0.2-1.3); Total Protein 8.1 g/dL (6.3-8.2)
[2019-03-16 15:40] LABS: Partial Thromboplastin Time 24.3 sec (22.0-30.0); Prothrombin Time 10.8 sec (9.0-12.0)
--- NOTE | 2019-03-16 16:19 | XR ---
EXAMINATION TYPE: XR chest 2V DATE OF EXAM: 03/16/2019 COMPARISON: 09/01/2017 HISTORY: 28 year-old female abdominal pain going into the chest. TECHNIQUE: PA and lateral views FINDINGS: The cardiomediastinal silhouette, aorta, and pulmonary vasculature are within normal limits. Hazy low er lung densities relating to overlying soft tissue. Otherwise, lungs and pleural spaces are clear. IMPRESSION: No acute cardiopulmonary process.
--- NOTE | 2019-03-16 16:20 | XR ---
EXAMINATION TYPE: XR KUB DATE OF EXAM: 03/16/2019 CLINICAL DATA: 28-year-old female with abdominal pain, [facility] COMPARISON: 07/05/2014 FINDINGS: Lung bases are clear. No evidence for free intraperitoneal air. No dilated small bowel or air-fluid levels. Scattered air and stool seen throughout the colon extendi ng distally into the rectum. Mild stool burden. No suspicious calcifications identified. IMPRESSION: 1. Mild stool burden. 2.No evidence of bowel obstruction or free intraperitoneal air.
[2019-03-16 17:31] VITALS: BP 118/70; PULSE 71; RESP 18; TEMP 97.9
== END 2019-03-16 17:29 | disposition home or self-care (01) ==
LOC: EC 14:44
DX: K29.70 Gastritis, unspecified, without bleeding (principal); N39.0 Urinary tract infection, site not specified; F41.9 Anxiety disorder, unspecified; F17.200 Nicotine dependence, unspecified, uncomplicated; Z88.5 Allergy status to narcotic agent; Z79.899 Other long term (current) drug therapy; Z90.49 Acquired absence of other specified parts of digestive tract
CPT/HCPCS: 36415; 80053; 82150; 83690; 84484; 85025; 85610; 85730; 81001; 81025; 87086; 87077; 87186; 71046; 74018; 99285; 96374; 96375 ×2; 96361 ×2; J2405; J1885; C9113

== ENCOUNTER 2019-09-09 07:21 | Emergency (ER) | payer OTHER ==
[2019-09-09 07:36] VITALS: PULSE 76; RESP 18
[2019-09-09] MEDS ORDERED: ONDANSETRON 4 MG/2 ML VIAL IVP STA (07:56)
[2019-09-09] MEDS ORDERED: PANTOPRAZOLE 40 MG/10 ML VIAL IVP STA (07:56)
[2019-09-09] MEDS ORDERED: SODIUM CHLORIDE 0.9% 1,000 ML IV STA (07:56)
--- NOTE | 2019-09-09 08:00 | ED ---
General Adult HPI - General Chief complaint: Nausea/Vomiting/Diarrhea Stated complaint: Vomiting, Chest Pain Time Seen by Provider: 09/09/19 07:39 Source: patient, RN notes reviewed, old records reviewed Mode of arrival: ambulatory Limitations: no limitations - History of Present Illness Initial comments: 28-year-old female otherwise healthy presenting for evaluation of vomiting vomiting began approximately 10 hours prior to arrival. Patient denies any abdominal pain. No diarrhea. No fever or chills. No URI symptoms. No dysuria or hematuria. Patient is otherwise healthy. She reports some chest pain associated with the vomiting this pain began after the vomiting. Patient attempted to go to urgent care by urgent care was closed. - Related Data Home Medications Medication Instructions Recorded Confirmed busPIRone HCL [Buspar] 7.5 mg PO BID 02/25/17 07/16/17 Previous Rx's Medication Instructions Recorded Cephalexin [Keflex] 500 mg PO Q8HR #21 cap 07/16/17 Fluconazole [Diflucan] 150 mg PO DIRECTED #3 tab 03/16/19 Nitrofurantoin Monohyd/M-Cryst 100 mg PO Q12HR #14 cap 03/16/19 [Macrobid] Omeprazole 40 mg PO DAILY #40 capsule. 03/16/19 Allergies Allergy/AdvReac Type Severity Reaction Status Date / Time hydrocodone [From [place]] AdvReac Abdominal Verified 09/09/19 07:36 Pain Review of Systems ROS Statement: Those systems with pertinent positive or pertinent negative responses have been documented in the HPI. ROS Other: All systems not noted in ROS Statement are negative. Past Medical History Past Medical History: No Reported History Additional Past Medical History / Comment(s): abdominal pain,Hx OVARIAN CYSTS History of Any Multi-Drug Resistant Organisms: None Reported Past Surgical History: Bowel Resection, Section, Hernia Repair Additional Past Surgical History / Comment(s): colon biopsy, x2,mass removed from lower stomach Past Anesthesia/Blood Transfusion Reactions: No Reported Reaction Past Psychological History: Anxiety, PTSD Smoking Status: Former smoker Past Alcohol Use History: None Reported Past Drug Use History: None Reported - Past Family History Mother Family Medical History: No Reported History Father Family Medical History: No Reported History General Exam Limitations: no limitations General appearance: alert, in no apparent distress Head exam: Present: atraumatic, normocephalic Eye exam: Present: normal appearance, PERRL ENT exam: Present: mucous membranes dry Neck exam: Present: normal inspection. Absent: tenderness, meningismus Respiratory exam: Present: normal lung sounds bilaterally. Absent: respiratory distress, wheezes Cardiovascular Exam: Present: regular rate, normal rhythm GI/Abdominal exam: Present: soft. Absent: distended, tenderness, guarding, rebound Extremities exam: Present: normal inspection, normal capillary refill. Absent: pedal edema Neurological exam: Present: alert, oriented X3, CN II-XII intact. Absent: motor sensory deficit Psychiatric exam: Present: normal affect, normal mood Skin exam: Present: warm, dry, intact. Absent: cyanosis, diaphoretic Course Vital Signs 09/09/19 07:33 Temperature 98.6 F Pulse Rate 76 Respiratory 18 Rate Blood Pressure 126/83 O2 Sat by Pulse 100 Oximetry EKG Findings - EKG Comments: EKG Findings:: EKG: Normal sinus rhythm, rate of 76, UT interval 168 2 are as duration 84, QTC 414, no ST segment elevation. Medical Decision Making - Medical Decision Making 28-year-old female presenting for nausea vomiting or no abdominal pain. She had some burning chest pain after vomiting. She has a nonischemic EKG. Chest x-ray negative for acute cardiopulmonary findings, abdominal x-ray negative for obstruction or intraperitoneal free air. She has normal CBC, normal CMP. After fluids, antiemetics she is feeling much better. No further episodes of vomiting. - Lab Data Result diagrams: 09/09/19 08:21 09/09/19 08:21 Lab Results 09/09/19 09/09/19 09/09/19 Range/Units 08:21 08:21 08:21 WBC 5.6 (3.8-10.6) k/uL RBC 4.18 (3.80-5.40) m/uL Hgb 13.3 (11.4-16.0) gm/dL Hct 39.0 (34.0-46.0) % MCV 93.4 (80.0-100.0) fL MCH 31.8 (25.0-35.0) pg MCHC 34.1 (31.0-37.0) g/dL RDW 12.8 (11.5-15.5) % Plt Count 241 (150-450) k/uL Neutrophils % 68 % Lymphocytes % 25 % Monocytes % 5 % Eosinophils % 2 % Basophils % 0 % Neutrophils # 3.8 (1.3-7.7) k/uL Lymphocytes # 1.4 (1.0-4.8) k/uL Monocytes # 0.3 (0-1.0) k/uL Eosinophils # 0.1 (0-0.7) k/uL Basophils # 0.0 (0-0.2) k/uL Sodium 139 (137-145) mmol/L Potassium 4.0 (3.5-5.1) mmol/L Chloride 107 (98-107) mmol/L Carbon Dioxide 26 (22-30) mmol/L Anion Gap 6 mmol/L BUN 13 (7-17) mg/dL Creatinine 0.67 (0.52-1.04) mg/dL Est GFR (CKD-EPI)AfAm >90 (>60 ml/min/1.73 sqM) Est GFR (CKD-EPI)NonAf >90 (>60 ml/min/1.73 sqM) Glucose 92 (74-99) mg/dL Calcium 9.6 (8.4-10.2) mg/dL Total Bilirubin 0.5 (0.2-1.3) mg/dL AST 20 (14-36) U/L ALT 14 (4-34) U/L Alkaline Phosphatase 57 (38-126) U/L Troponin I <0.012 (0.000-0.034) ng/mL Total Protein 7.4 (6.3-8.2) g/dL Albumin 4.6 (3.5-5.0) g/dL Amylase 52 (30-110) U/L Lipase 51 (23-300) U/L Disposition Clinical Impression: Dehydration, Nausea & vomiting Disposition: HOME SELF-CARE Condition: Good Instructions (If sedation given, give patient instructions): Acute Nausea and Vomiting (ED) Is patient prescribed a controlled substance at d/c from ED?: No Referrals: Svetlana Sanford MD [Primary Care Provider] - 1-2 days Time of Disposition: 09:13
[2019-09-09 08:30] LABS: Basophils % (A) 0 %; Eosinophils # (A) 0.1 k/uL (0-0.7); Eosinophils % (A) 2 %; HGB 13.3 gm/dL (11.4-16.0); Lymphocytes # (A) 1.4 k/uL (1.0-4.8); Lymphocytes % (A) 25 %; MCH 31.8 pg (25.0-35.0); MCHC 34.1 g/dL (31.0-37.0); MCV 93.4 fL (80.0-100.0); Mean Platelet Volume 7.7; Monocytes # (A) 0.3 k/uL (0-1.0); Monocytes % (A) 5 %; Neutrophils # (A) 3.8 k/uL (1.3-7.7); Neutrophils % (A) 68 %; Platelet Count 241 k/uL (150-450); RBC 4.18 m/uL (3.80-5.40); RDW 12.8 % (11.5-15.5); WBC 5.6 k/uL (3.8-10.6)
[2019-09-09 08:47] LABS: ALT 14 U/L (4-34); AST 20 U/L (14-36); African American GFR (CKD) >90 (>60 ml/min/1.73 sqM); Albumin 4.6 g/dL (3.5-5.0); Alkaline Phosphatase 57 U/L (38-126); Amylase 52 U/L (30-110); Anion Gap 6 mmol/L; Blood Urea Nitrogen 13 mg/dL (7-17); Calcium 9.6 mg/dL (8.4-10.2); Carbon Dioxide 26 mmol/L (22-30); Chloride 107 mmol/L (98-107); Glucose 92 mg/dL (74-99); Non-African American GFR(CKD) >90 (>60 ml/min/1.73 sqM); Sodium 139 mmol/L (137-145); Total Bilirubin 0.5 mg/dL (0.2-1.3); Total Protein 7.4 g/dL (6.3-8.2)
--- NOTE | 2019-09-09 09:06 | XR ---
EXAMINATION TYPE: XR chest 2V DATE OF EXAM: 09/09/2019 COMPARISON: 03/16/2019 HISTORY: Chest pain TECHNIQUE: Frontal and lateral views of the chest are obtained. FINDINGS: There is no focal air space opacity. No evidence for pneumothorax. No pleural effusion. The cardiac silhouette size is within normal limits. The osseous structures are grossly intact. IMPRESSION: 1. No acute cardiopulmonary process.
--- NOTE | 2019-09-09 09:08 | XR ---
EXAMINATION TYPE: XR KUB DATE OF EXAM: 09/09/2019 COMPARISON: NONE HISTORY: Pain TECHNIQUE: Single supine KUB image of the abdomen is obtained FINDINGS: Small bowel demonstrates no evidence for dilatation or air fluid levels. Gas and fecal material is seen in non-distended colon. No convincing evidence for pneumoperitoneum. No unusual calcifications. The lung bases are clear. The osseous structures are intact. IMPRESSION: 1. Overall nonobstructive bowel gas pattern.
[2019-09-09 09:25] VITALS: BP 117/77; TEMP 98.1
== END 2019-09-09 09:40 | disposition home or self-care (01) ==
LOC: EC 07:21
DX: E86.0 Dehydration (principal); R11.2 Nausea with vomiting, unspecified; F41.9 Anxiety disorder, unspecified; Z79.899 Other long term (current) drug therapy; Z88.5 Allergy status to narcotic agent; Z87.891 Personal history of nicotine dependence
CPT/HCPCS: 93005; 80053; 82150; 83690; 84484; 85025; 71046; 74018; 99284; 96374; 96375; 96361; J2405; C9113

== ENCOUNTER → 2019-09-26 | Outpatient (CLI) | payer OTHER ==
--- NOTE | 2019-10-05 20:50 | HM ---
HOLTER MONITOR REPORT 28-year-old female with palpitations. A 24 Holter monitor shows: 1. Sinus mechanism. 2. Sinus tachycardia. 3. Very occasional premature beats. The patient complained of chest pain, shortness of breath, pounding in the heart with heavy stomach. She had sinus tachycardia. No arrhythmias noted. MMODL / IJN: [id number] /
== END | disposition home or self-care (01) ==
LOC: RADECHMAIN 12:03
PROVIDERS: ATTEND Internal Medicine
DX: R00.0 Tachycardia, unspecified (principal); R07.9 Chest pain, unspecified; R06.02 Shortness of breath; Z88.5 Allergy status to narcotic agent
CPT/HCPCS: 93225; 93226

== ENCOUNTER 2020-11-12 11:51 | Observation (INO) | payer OTHER ==
[2020-11-12] MEDS ORDERED: SODIUM CHLORIDE 0.9% 500 ML 500 ML IV STA (13:16)
--- NOTE | 2020-11-12 13:19 | ED ---
General Adult HPI - General Chief complaint: Head Injury Stated complaint: syncope, head injury-3 days ago Time Seen by Provider: 11/12/20 12:20 Source: patient, RN notes reviewed, old records reviewed Mode of arrival: ambulatory Limitations: no limitations - History of Present Illness Initial comments: This is a 30-year-old female who presents emergency Department states she's been complaining of headaches for a couple of months and 3 days ago she became very dizzy and passed out fell and hit her head. Patient states her mother states she was out for approximate 1 minute. Patient states she continues to have headache she denies any neck pain. Patient denies any numbness or weakness. Patient denies any other injury. Patient states she was driving around and became confused as to where she wasn't took her about 10 minutes to oriented to herself and then she was back to her baseline. Patient states this never happened to her before so she decided come in to be worked out. Currently she complains of a mild headache and she has no other symptoms at this time. Patient denies any recent fever chills or cough per patient denies any vomiting or diarrhea. Patient denies any abdominal pain. Patient states she hit the right temporal region of her head when she fell. - Related Data Home Medications Medication Instructions Recorded Confirmed No Known Home Medications 11/12/20 11/12/20 Allergies Allergy/AdvReac Type Severity Reaction Status Date / Time hydrocodone [From [place]] AdvReac Abdominal Verified 11/12/20 13:48 Pain Review of Systems ROS Statement: Those systems with pertinent positive or pertinent negative responses have been documented in the HPI. ROS Other: All systems not noted in ROS Statement are negative. Past Medical History Past Medical History: No Reported History Additional Past Medical History / Comment(s): abdominal pain,Hx OVARIAN CYSTS History of Any Multi-Drug Resistant Organisms: None Reported Past Surgical History: Bowel Resection, Section, Hernia Repair Additional Past Surgical History / Comment(s): colon biopsy, x2,mass removed from lower stomach Past Anesthesia/Blood Transfusion Reactions: No Reported Reaction Past Psychological History: Anxiety, PTSD Smoking Status: Never smoker Past Alcohol Use History: None Reported Past Drug Use History: None Reported - Past Family History Mother Family Medical History: No Reported History Father Family Medical History: No Reported History General Exam - General Exam Comments Initial Comments: GENERAL: Patient is well-developed and well-nourished. Patient is nontoxic and well- hydrated and is in no acute distress. ENT: Neck is soft and supple. No significant lymphadenopathy is noted. Oropharynx is clear. Moist mucous membranes. Neck has full range of motion without eliciting any pain. EYES: The sclera were anicteric and conjunctiva were pink and moist. Extraocular movements were intact and pupils were equal round and reactive to light. Eyelids were unremarkable. PULMONARY: Unlabored respirations. Good breath sounds bilaterally. No audible rales rhonchi or wheezing was noted. CARDIOVASCULAR: There is a regular rate and rhythm without any murmurs gallops or rubs. ABDOMEN: Soft and nontender with normal bowel sounds. SKIN: Skin is clear with no lesions or rashes and otherwise unremarkable. NEUROLOGIC: Patient is alert and oriented x3. Cranial nerves II through XII are grossly intact. Motor and sensory are also intact. Normal speech, volume and content. Symmetrical smile. MUSCULOSKELETAL: Normal extremities with adequate strength and full range of motion. No lower extremity swelling or edema. No calf tenderness. LYMPHATICS: No significant lymphadenopathy is noted PSYCHIATRIC: Normal psychiatric evaluation. Limitations: no limitations Course Vital Signs 11/12/20 11/12/20 12:32 13:15 Temperature 98.1 F Pulse Rate 104 H Pulse Rate [ 96 Sitting] Pulse Rate [ 105 H Standing] Pulse Rate [ 98 Supine] Respiratory 20 Rate Blood Pressure 135/84 Blood Pressure 141/98 [Sitting] Blood Pressure 147/97 [Standing] Blood Pressure 134/100 [Supine] O2 Sat by Pulse 100 Oximetry Medical Decision Making - Medical Decision Making EKG shows normal sinus rhythm at 94 bpm IA interval 162 QRS is 88 QT interval 336 QTC is 420. Patient's EKG shows no ST segment elevation or depression. There are Q waves in leads 3 and aVF. Old EKG shows similar changes Computed tomography scan shows a lateral ventricle on the right larger than the left. I spoke with Dr. Thomas as he wanted the patient admitted and to be consulted to further evaluate this with an MRI I spoke with some physicians and they agreed to admit the patient admitted the patient wrote admitting orders. - Lab Data Result diagrams: 11/12/20 13:47 11/12/20 13:47 Lab Results 11/12/20 11/12/20 11/12/20 Range/Units 13:47 13:47 13:47 WBC 9.2 (3.8-10.6) k/uL RBC 4.60 (3.80-5.40) m/uL Hgb 15.4 (11.4-16.0) gm/dL Hct 43.5 (34.0-46.0) % MCV 94.6 (80.0-100.0) fL MCH 33.4 (25.0-35.0) pg MCHC 35.3 (31.0-37.0) g/dL RDW 11.8 (11.5-15.5) % Plt Count 303 (150-450) k/uL MPV 10.3 Neutrophils % 75 % Lymphocytes % 18 % Monocytes % 4 % Eosinophils % 2 % Basophils % 0 % Neutrophils # 6.9 (1.3-7.7) k/uL Lymphocytes # 1.7 (1.0-4.8) k/uL Monocytes # 0.4 (0-1.0) k/uL Eosinophils # 0.2 (0-0.7) k/uL Basophils # 0.0 (0-0.2) k/uL PT (9.0-12.0) sec INR (<1.2) APTT (22.0-30.0) sec Sodium 141 (137-145) mmol/L Potassium 4.3 (3.5-5.1) mmol/L Chloride 105 (98-107) mmol/L Carbon Dioxide 24 (22-30) mmol/L Anion Gap 12 mmol/L BUN 13 (7-17) mg/dL Creatinine 0.70 (0.52-1.04) mg/dL Est GFR (CKD-EPI)AfAm >90 (>60 ml/min/1.73 sqM) Est GFR (CKD-EPI)NonAf >90 (>60 ml/min/1.73 sqM) Glucose 116 H (74-99) mg/dL Calcium 10.4 H (8.4-10.2) mg/dL Magnesium 2.0 (1.6-2.3) mg/dL Total Bilirubin 0.7 (0.2-1.3) mg/dL AST 29 (14-36) U/L ALT 15 (4-34) U/L Alkaline Phosphatase 70 (38-126) U/L Troponin I <0.012 (0.000-0.034) ng/mL Total Protein 8.5 H (6.3-8.2) g/dL Albumin 4.9 (3.5-5.0) g/dL Urine Opiates Screen (NotDetected) Ur Oxycodone Screen (NotDetected) Urine Methadone Screen (NotDetected) Ur Propoxyphene Screen (NotDetected) Ur Barbiturates Screen (NotDetected) U Tricyclic Antidepress (NotDetected) Ur Phencyclidine Scrn (NotDetected) Ur Amphetamines Screen (NotDetected) U Methamphetamines Scrn (NotDetected) U Benzodiazepines Scrn (NotDetected) Urine Cocaine Screen (NotDetected) U Marijuana (THC) Screen (NotDetected) 11/12/20 11/12/20 Range/Units 14:28 14:55 WBC (3.8-10.6) k/uL RBC (3.80-5.40) m/uL Hgb (11.4-16.0) gm/dL Hct (34.0-46.0) % MCV (80.0-100.0) fL MCH (25.0-35.0) pg MCHC (31.0-37.0) g/dL RDW (11.5-15.5) % Plt Count (150-450) k/uL MPV Neutrophils % % Lymphocytes % % Monocytes % % Eosinophils % % Basophils % % Neutrophils # (1.3-7.7) k/uL Lymphocytes # (1.0-4.8) k/uL Monocytes # (0-1.0) k/uL Eosinophils # (0-0.7) k/uL Basophils # (0-0.2) k/uL PT 11.1 (9.0-12.0) sec INR 1.1 (<1.2) APTT 24.4 (22.0-30.0) sec Sodium (137-145) mmol/L Potassium (3.5-5.1) mmol/L Chloride (98-107) mmol/L Carbon Dioxide (22-30) mmol/L Anion Gap mmol/L BUN (7-17) mg/dL Creatinine (0.52-1.04) mg/dL Est GFR (CKD-EPI)AfAm (>60 ml/min/1.73 sqM) Est GFR (CKD-EPI)NonAf (>60 ml/min/1.73 sqM) Glucose (74-99) mg/dL Calcium (8.4-10.2) mg/dL Magnesium (1.6-2.3) mg/dL Total Bilirubin (0.2-1.3) mg/dL AST (14-36) U/L ALT (4-34) U/L Alkaline Phosphatase (38-126) U/L Troponin I (0.000-0.034) ng/mL Total Protein (6.3-8.2) g/dL Albumin (3.5-5.0) g/dL Urine Opiates Screen Not Detected (NotDetected) Ur Oxycodone Screen Not Detected (NotDetected) Urine Methadone Screen Not Detected (NotDetected) Ur Propoxyphene Screen Not Detected (NotDetected) Ur Barbiturates Screen Not Detected (NotDetected) U Tricyclic Antidepress Not Detected (NotDetected) Ur Phencyclidine Scrn Not Detected (NotDetected) Ur Amphetamines Screen Not Detected (NotDetected) U Methamphetamines Scrn Not Detected (NotDetected) U Benzodiazepines Scrn Not Detected (NotDetected) Urine Cocaine Screen Not Detected (NotDetected) U Marijuana (THC) Screen Detected H (NotDetected) Disposition Clinical Impression: Confusion, Abnormal brain CT, Syncope Disposition: ADMITTED IP TO THIS [facility] Referrals: Svetlana Sanford MD [Primary Care Provider] - 1-2 days Time of Disposition: 16:03
[2020-11-12 13:56] LABS: Basophils % (A) 0 %; Eosinophils # (A) 0.2 k/uL (0-0.7); Eosinophils % (A) 2 %; HCT 43.5 % (34.0-46.0); HGB 15.4 gm/dL (11.4-16.0); Lymphocytes # (A) 1.7 k/uL (1.0-4.8); Lymphocytes % (A) 18 %; MCH 33.4 pg (25.0-35.0); MCHC 35.3 g/dL (31.0-37.0); MCV 94.6 fL (80.0-100.0); Mean Platelet Volume 10.3; Monocytes # (A) 0.4 k/uL (0-1.0); Monocytes % (A) 4 %; Neutrophils # (A) 6.9 k/uL (1.3-7.7); Neutrophils % (A) 75 %; Platelet Count 303 k/uL (150-450); RDW 11.8 % (11.5-15.5); WBC 9.2 k/uL (3.8-10.6)
[2020-11-12 14:08] LABS: ALT 15 U/L (4-34); African American GFR (CKD) >90 (>60 ml/min/1.73 sqM); Albumin 4.9 g/dL (3.5-5.0); Anion Gap 12 mmol/L; Blood Urea Nitrogen 13 mg/dL (7-17); Calcium 10.4 mg/dL (8.4-10.2); Carbon Dioxide 24 mmol/L (22-30); Chloride 105 mmol/L (98-107); Glucose 116 mg/dL (74-99); Non-African American GFR(CKD) >90 (>60 ml/min/1.73 sqM); Sodium 141 mmol/L (137-145); Total Bilirubin 0.7 mg/dL (0.2-1.3); Total Protein 8.5 g/dL (6.3-8.2)
[2020-11-12 14:10] LABS: Potassium 4.3 mmol/L (3.5-5.1)
[2020-11-12 14:11] LABS: AST 29 U/L (14-36); Alkaline Phosphatase 70 U/L (38-126)
--- NOTE | 2020-11-12 14:49 | CT ---
EXAMINATION TYPE: CT brain daniel bueno con DATE OF EXAM: 11/12/2020 COMPARISON: HISTORY: Fall, trauma and pain CT DLP: 1428.5 mGycm Automated exposure control for dose reduction was used. TECHNIQUE: CT scan of the head and cervical spine are performed without contrast. FINDINGS: There is no acute intracranial hemorrhage, mass effect, or midline shift identified. The ventricles show a symmetric appearance, right lateral ventricle is enlarged as compared to the left especially in the posterior aspect, and sulci are within normal limits in size. The globes are intac t and the visualized sinuses are clear. Cervical spine is visualized in its entirety from C1 through upper thoracic levels and demonstrates s atisfactory alignment without evidence of acute fracture or dislocation. Prevertebral soft tissue ap pears within normal limits. The C1-C2 articulation is unremarkable. Straightening the cervical spin e can be seen in muscle spasm or patient positioning. IMPRESSION: 1. There is no acute fracture or dislocation evident in the cervical spine. 2. No acute intracranial hemorrhage, mass effect, or midline shift is seen, asymmetry within the righ t lateral ventricle as compared to the left may be congenital.
--- NOTE | 2020-11-12 14:52 | XR ---
EXAMINATION TYPE: XR chest 2V DATE OF EXAM: 11/12/2020 COMPARISON: 09/09/2019 HISTORY: 30-year-old female with chest pain and syncope TECHNIQUE: PA and lateral views FINDINGS: The cardiomediastinal silhouette, aorta, and pulmonary vasculature are within normal limits. Lungs an d pleural spaces are clear. Small metallic BB projects at the level of the sternal notch. Bilateral n ipple bars. IMPRESSION: No acute cardiopulmonary process. Small metallic BB projects in the region of the sternal notch. Clin ically correlate for any external artifact.
[2020-11-12 14:55] LABS: Amphetamine Screen,Urine Not Detected (NotDetected); Barbiturate Screen,Urine Not Detected (NotDetected); Benzodiazepines Screen,Urine Not Detected (NotDetected); Cocaine Screen,Urine Not Detected (NotDetected); Methadone Screen, Urine Not Detected (NotDetected); Opiate Screen,Urine Not Detected (NotDetected); Oxycodone Screen, Urine Not Detected (NotDetected); Phencyclidine Screen,Urine Not Detected (NotDetected); Tricyclic Antidepressant,Urine Not Detected (NotDetected); Urn Cannabinoid Scrn Detected (NotDetected)
[2020-11-12 15:27] LABS: INR 1.1 (<1.2); Partial Thromboplastin Time 24.4 sec (22.0-30.0); Prothrombin Time 11.1 sec (9.0-12.0)
[2020-11-12] MEDS ORDERED: SODIUM CHLORIDE 0.9% 1,000 ML IV ONE (16:03)
[2020-11-12 17:06] LABS: Ionized Calcium 5.9 mg/dL (4.5-5.3)
[2020-11-12] MEDS: IBUPROFEN 600 MG TAB PO PRN (20:11)
[2020-11-13] MEDS: IBUPROFEN 600 MG TAB PO PRN ×3 (03:18→20:28)
--- NOTE | 2020-11-13 10:55 | P.CNNES ---
History of Present Illness Consult date: 11/13/20 Requesting physician: Eleazar Motta Reason for Consult: confusion and abnormal CT History of Present Illness: This is a 30-year-old woman no past medical history percent emergent department on 11/12/2020 playing of headache and dizziness for the last 3 months who had recent confusion episode. With the patient she's been having headache and the dizziness for the last 3 months and she stated the headache is over the lateral anterior temporal region, feels like a throbbing headache, headache is daily and it's constant she said the headache is about 3 out of 10 for most of time but can get up to 10 out of 10. She does have photophobia but that really has phonophobia and denies any nausea or vomiting or any visual disturbance associated with it. She's taking ibuprofen [id number] every 6 hours and that's an 800 mg. She is also having dizziness for the same duration if she feels that the room is spinning and about a week ago she fell and hit her head and she thinks she briefly lost consciousness for 1 second but she denies any urinary or bowel and consult tongue bite. She denies of any seizure activity. She said the that yesterday she was driving backward to her home and she was confused driving backward home which is her normal rounds and she was confused for 10 minutes. She denies of any focal weakness, numbness, any neck pain, any lower back pain. She denies of any fever. She denies of any recent travel. She denies of any rash. She said that when she is walking and she feels she is unsteady walk-in and she was told the by family members that her speech is off. She denies of any seizure, any history of migraine. Regarding her history is normal. She denies any family history of migraine or seizure. There is a family history of myocardial infarction on the father's side that in the age of 50s. Workup in the hospital consisted of: Initial vital signs is a blood pressure of 135/84, heart rate of 104, M Vercher of 98.1 Fahrenheit oral, respiratory rate of 20 and pulse ox of hypertension room air. This the patient has been the hospital the patient has been afebrile. Patient had orthostatic vitals and is normal. CT of the head is reported as as no acute intracranial hemorrhage, mass effect or midline shift is seen the, asymmetry within the right lateral ventricle as compared to the left and may be congenital. In the body they reported it is mentioned that the it's over the right lateral ventricle is enlarged as compared to the left especially in the posterior aspect. CT of cervical spine was reported as there is no acute fracture or dislocation evident in the cervical spine. CBC with differential is unremarkable Chemistry panel is calcium is elevated slightly of 10.4 normal is up to 10.2 and the ionized calcium is 5.9 and the normal goes up to 5.3. Otherwise the rest of the chemistry panel is normal. Magnesium 2.0 within normal limits at. AST of 29 ALT of 15. TSH is 0.954 which is within normal limits Urine tox screen is positive for marijuana otherwise negative Benito virus PCR was not detected. Review of Systems Review of system: The 12 point system was reviewed and apparent positive and negative per HPI. Past Medical History Past Medical History: No Reported History Additional Past Medical History / Comment(s): abdominal pain,Hx OVARIAN CYSTS History of Any Multi-Drug Resistant Organisms: None Reported Past Surgical History: Bowel Resection, Section, Hernia Repair Additional Past Surgical History / Comment(s): colon biopsy, x2,mass removed from lower stomach Past Anesthesia/Blood Transfusion Reactions: No Reported Reaction Past Psychological History: Anxiety, PTSD Smoking Status: Never smoker Past Alcohol Use History: None Reported Additional Past Alcohol Use History / Comment(s): started smoking at age 18 on and off,<1ppd Past Drug Use History: None Reported - Past Family History Mother Family Medical History: No Reported History Father Family Medical History: No Reported History Medications and Allergies Home Medications Medication Instructions Recorded Confirmed Type No Known Home Medications 11/12/20 11/12/20 History Allergies Allergy/AdvReac Type Severity Reaction Status Date / Time hydrocodone [From [place]] AdvReac Abdominal Verified 11/12/20 13:48 Pain Physical Examination - Vital Signs Vital Signs: Vital Signs Temp Pulse Pulse Pulse Pulse Resp BP 11/13/20 07:00 98 F 67 18 11/13/20 02:31 98 F 69 18 11/12/20 18:57 98.4 F 67 18 11/12/20 16:30 97.8 F 85 18 145/93 11/12/20 13:15 96 105 H 98 11/12/20 12:32 98.1 F 104 H 20 135/84 BP BP BP Pulse Ox 11/13/20 07:00 102/66 99 11/13/20 02:31 96/62 99 11/12/20 18:57 142/90 99 11/12/20 16:30 99 11/12/20 13:15 141/98 147/97 134/100 11/12/20 12:32 100 Intake and Output 11/12/20 11/13/20 11/13/20 22:59 06:59 14:59 Intake Total 480 480 90 Balance 480 480 90 Intake: Oral 480 480 90 Other: # Voids 1 2 Weight 74.843 kg GENERAL: The patient is lying in bed and is mild to moderate acute distress. CHEST: The heart rate is regular rate rhythm. No murmurs to auscultation. No carotid bruit bilaterally. LUNG: Clear to auscultation bilaterally no wheezing noted throughout. Not labored breathing. ABDOMEN/GI: Bowel sounds present in all 4 quadrants. No tenderness to palpation throughout. NEUROLOGICAL: Higher mental function: The patient is awake, alert, oriented to self, place and time. Patient is following commands. No aphasia and no neglect. Cranial nerves: The pupils are round, equal and reactive to light and accommodation. Patient has photophobia. Visual english are full to confrontation throughout. Extraocular movement is intact no nystagmus is noted. Facial sensation is normal to touch throughout. The facial strength is normal throughout. Hearing is normal bilaterally to hand rub. Tongue is midline and moved [id number] without any difficulty. No dysarthria is noted. Shoulder shrug is normal bilaterally. Motor: Gait seems somewhat unsteady walking but was not swaying towards one side or other. 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 Otherwise rest are 5 over 5 throughout. Normal tone and bulk. Cerebellum: Normal finger to nose heel to kim bilaterally. Sensation: Sensation is normal to touch throughout. Reflexes (right/left): 2+ throughout except brachioradialis and patellar are 3+ bilaterally . Plantars are downgoing bilaterally. Results - Laboratory Findings CBC and BMP: 11/12/20 13:47 11/12/20 13:47 Abnormal Lab Findings: Abnormal Labs 11/12/20 11/12/20 11/12/20 13:47 14:28 16:28 Glucose 116 H Calcium 10.4 H Ionized Calcium Fatou 5.9 H Total Protein 8.5 H U Marijuana (THC) Screen Detected H Assessment and Plan Assessment: This is a 30-year-old woman the presented emergency department on 11/12/2020 for headache for the last couple months but over the last 3 days has been feeling very dizzy as well as confusion. She has episode of passing out and hitting her head. * Episode of headache and dizziness for the past 3 month and recent confusion lasting 10 minutes of unknown etiology at this time (unknown etiology of encephalopathy). On examination left upper extremity seem weak. 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 * Elevated calcium can exacerbate altered mentation. * Positive marijuana use Plan: I ordered MRI the brain with and without. Ordered CT angiography of the head and neck. Ordered a routine EEG. I will not start the patient on antiepileptic drugs unless there is epileptiform discharges or seizure on the EEG. Ordered vitamin B12, folate. Latest patient on melatonin 5 mg daily at bedtime which didn't help with the headache. Use naproxen when necessary for headaches. Every 4 hours neuro checks Consulted PT and OT We'll defer the rest of the medical management to the primary team. Thank you for the consultation. Rylan Arriaga M.D. Neuro-hospitalist Time with Patient: Greater than 30
[2020-11-13] MEDS ORDERED: LORazepam 2 MG/ML INJ IV ONE (12:43)
--- NOTE | 2020-11-13 14:40 | CT ---
EXAMINATION TYPE: CT angio head neck DATE OF EXAM: 11/13/2020 HISTORY: [place], syncope, r/o aneurysm vs malformation COMPARISON: CT brain and cervical spine from yesterday. CT DLP: 360.7 mGycm. Automated Exposure Control for Dose Reduction was Utilized. TECHNIQUE: CTA scan of the head and neck are performed with IV Contrast, patient injected with 65 mL of Isovue 370, axial images are obtained, coronal and sagittal reformatted images are reviewed. 3D r econstructed images are created on an independent workstation and reviewed. FINDINGS: Carotid/Vascular Structures: Some artifact due to densely opacified left brachiocephalic and subclavi an vein makes evaluation at this level slightly suboptimal. Suspect normal three-vessel origin from a ortic arch. No obvious focal plaque or stenosis. No significant focal plaque or stenosis in the commo n or internal carotid arteries bilaterally including at the level of the bilateral carotid bulbs. Pat ent external carotid arteries bilaterally without significant plaque or stenosis. Dominant right vertebral artery. Vertebral arteries are patent to basilar junction. No significant pl aque or stenosis in the posterior circulation. Hypoplastic bilateral posterior communicating arteries are noted. Patent anterior communicating artery. No significant focal plaque or stenosis in the ante rior circulation. Other: No other significant abnormality. IMPRESSION: No significant abnormality is seen. NASCET criteria was used in interpretation of this exam?
--- NOTE | 2020-11-13 15:08 | P.HPIM ---
History of Present Illness H&P Date: 11/13/20 This is a pleasant 30-year-old female who is evaluated today after coming to the emergency room for an acute confusion yesterday while driving. Patient states that for the last month she has noticed a persistent headache usually baseline a 3 out of 10, however is exacerbated by position changing, and intermittent photophobia. Patient states that she feels a constant pressure bilateral temples that radiates to the back of her head. Patient denies any acute vision changes, blurry vision, spots, changes in peripheral vision. Patient denies any sinus congestion, pressure, drainage. Patient does report some intermittent dizziness and lightheadedness, sometimes happens when changing positions however this can also happen at rest. In addition patient does report some pain in her right ear that started about a week ago, and reports ringing in her left ear intermittently. Patient does report that 3 days prior she fell after having a syncopal episode and hit her right caodaism. Patient's mother states that she was unconscious for 1 minute. Yesterday patient was driving her brother home from work and she states that she was on her street and then she felt confused like she did not know where she was however she said that she was saying in her head "you know where you are", the episode lasted about 10 minutes and the patient was able to return home with no further incidents. Patient and felt that she should come to the emergency room for evaluation. Patient states that this headache has been going on longer than a month, however she really only started paying attention to it about 1 month ago. Patient also reports a mild expressive aphasia she states that she'll be thinking about a word and will be unable to get out of her mouth. She does state that her brother has notices as well and has mentioned it to her. Patient denies any other focal neurological deficits, denies weakness in extremities, denies numbness or tingling. Patient denies any chest pain, cough, shortness breath. She denies any nausea or vomiting. Patient has a past medical history of 2, 10 years ago with a daughter that shortly after delivery, and 6 years ago with a son who is alive and well. In addition patient has a history of rectal bleeding resulted in a colonoscopy about 3 years ago and a removal of a benign mass. Patient states that she has had no further episodes of rectal bleeding consisting. Patient has been taking ibuprofen at home for the headache however it never really takes the pain away. Patient has a family history that is significant for premature cardiovascular disease in her father's side. She states that her father passed with the age of 55 from an DE as well as an early onset Alzheimer's dementia. Patient's grandmother from glioblastoma 5 years ago. Patient is alert and oriented 3 at the time of my examination. Patient is admitted for neurological evaluation, MRI and EEG have been ordered. Patient's brain CT revealed an asymmetry in the right lateral ventricle could possibly be congenital defect. It was negative for intracranial hemorrhage. Patient denies any alcohol use, denies drug use, reports quitting smoking about 1 year ago. Patient's urine toxicology was positive for marijuana. Blood count within normal limits, coagulation panel within normal limits. Patient's chemistry panel reveals a calcium of 10.4, with ionized calcium of 5.9. TSH is within normal limits. Coronavirus is not detectable. Patient remains afebrile, heart rate sinus rhythm 60s, blood pressure 102/66, 99% on room air. REVIEW OF SYSTEMS: CONSTITUTIONAL: No fever, no malaise, no fatigue. HEENT: No recent visual problems or hearing problems. Denied any sore throat. Reports pain to her right ear, tinnitus left ear. Denies any congestion, sinus drainage, sinus pressure. CARDIOVASCULAR: No chest pain, orthopnea, PND, no palpitations, no syncope. PULMONARY: No shortness of breath, no cough, no hemoptysis. GASTROINTESTINAL: No diarrhea, no nausea, no vomiting, no abdominal pain. NEUROLOGICAL: Reports headache, bilateral temporal radiates to the back of the head, reports dizziness, lightheadedness, tinnitus in the left ear. Denies focal neurological weakness, denies neuropathies. HEMATOLOGICAL: Denies any bleeding or petechiae. GENITOURINARY: Denies any burning micturition, frequency, or urgency. MUSCULOSKELETAL/RHEUMATOLOGICAL: Denies any joint pain, swelling, or any muscle pain. ENDOCRINE: Denies any polyuria or polydipsia. The rest of the 14-point review of systems is negative. PHYSICAL EXAMINATION: GENERAL: The patient is alert and oriented x3, not in any acute distress. Well developed, well nourished. HEENT: Pupils are round and equally reacting to light. EOMI. No scleral icterus. No conjunctival pallor. Normocephalic, atraumatic. No pharyngeal erythema. No thyromegaly. CARDIOVASCULAR: S1 and S2 present. No murmurs, rubs, or gallops. PULMONARY: Chest is clear to auscultation, no wheezing or crackles. ABDOMEN: Soft, nontender, nondistended, normoactive bowel sounds. No palpable organomegaly. MUSCULOSKELETAL: No joint swelling or deformity. EXTREMITIES: No cyanosis, clubbing, or pedal edema. NEUROLOGICAL: Mild weakness to her left upper extremity, left lower extremity. SKIN: No rashes. Assessment and plan Possible migraine, pending results of MRI and EEG to rule out an acute neurological event, seizures Marijuana abuse Tinnitus, related to possible migraine, possible Mnire's, continue with current workup History of benign mass removed from lower stomach Syncope, unknown etiology Possible B12/folate deficiency, pending labs - could explain neurological symptoms. Mild expressive aphasia, could be related to chronic marijuana abuse Elevated calcium, can exacerbate altered mentation, per neurology Plan is to obtain a brain MRI, CT with and without contrast, EEG. Further neurological workup is pending at this time. Folate and B12 has been ordered, those are sent out labs awaiting those return. Patient can begin using naproxen for headache as needed. Encourage hydration. Discussed marijuana cessation with patient. Continue with neuro checks every 4, vital signs. Repeat labs in the morning. Past Medical History Past Medical History: No Reported History Additional Past Medical History / Comment(s): abdominal pain,Hx OVARIAN CYSTS History of Any Multi-Drug Resistant Organisms: None Reported Past Surgical History: Bowel Resection, Section, Hernia Repair Additional Past Surgical History / Comment(s): colon biopsy, x2,mass re moved from lower stomach Past Anesthesia/Blood Transfusion Reactions: No Reported Reaction Past Psychological History: Anxiety, PTSD Smoking Status: Never smoker Past Alcohol Use History: None Reported Additional Past Alcohol Use History / Comment(s): started smoking at age 18 on and off,<1ppd Past Drug Use History: None Reported - Past Family History Mother Family Medical History: No Reported History Father Family Medical History: No Reported History Medications and Allergies Home Medications Medication Instructions Recorded Confirmed Type No Known Home Medications 11/12/20 11/12/20 History Allergies Allergy/AdvReac Type Severity Reaction Status Date / Time hydrocodone [From [place]] AdvReac Abdominal Verified 11/12/20 13:48 Pain Physical Exam Vitals: Vital Signs Temp Pulse Pulse Pulse Pulse Resp BP 11/13/20 07:00 98 F 67 18 11/13/20 02:31 98 F 69 18 11/12/20 18:57 98.4 F 67 18 11/12/20 16:30 97.8 F 85 18 145/93 11/12/20 13:15 96 105 H 98 11/12/20 12:32 98.1 F 104 H 20 135/84 BP BP BP Pulse Ox 11/13/20 07:00 102/66 99 11/13/20 02:31 96/62 99 11/12/20 18:57 142/90 99 11/12/20 16:30 99 11/12/20 13:15 141/98 147/97 134/100 11/12/20 12:32 100 Intake and Output 11/12/20 11/13/20 11/13/20 22:59 06:59 14:59 Intake Total 480 480 90 Balance 480 480 90 Intake: Oral 480 480 90 Other: # Voids 1 2 Weight 74.843 kg Results CBC & Chem 7: 11/12/20 13:47 11/12/20 13:47 Labs: Abnormal Lab Results - Last 24 Hours (Table) 11/12/20 11/12/20 11/12/20 Range/Units 13:47 14:28 16:28 Glucose 116 H (74-99) mg/dL Calcium 10.4 H (8.4-10.2) mg/dL Ionized Calcium Fatou 5.9 H (4.5-5.3) mg/dL Total Protein 8.5 H (6.3-8.2) g/dL U Marijuana (THC) Screen Detected H (NotDetected) Thrombosis Risk Factor Assmnt - Choose All That Apply Any of the Below Risk Factors Present?: Yes Each Factor Represents 1 point: Obesity (BMI >25) Other Risk Factors: No Other congenital or acquired thrombophilia - If yes, enter type in comment: Yes Thrombosis Risk Factor Assessment Total Risk Factor Score: 1 Thrombosis Risk Factor Assessment Level: Low Risk
--- NOTE | 2020-11-13 15:27 | MR ---
EXAMINATION TYPE: MR brain wo/w con DATE OF EXAM: 11/13/2020 COMPARISON: CT brain from yesterday. HISTORY: altered mental status. Seizure protocol TECHNIQUE: Multiplanar, multisequence images of the brain and brainstem is performed without and with IV contras t, utilizing 7.5 mL intravenous Gadavist . FINDINGS: Diffusion weighted images demonstrate no evidence of a recent infarct or other diffusion ab normality. There is no extra-axial fluid collection or significant white matter signal abnormality. The ventricular system and cisternal spaces are normal in size and appearance. The brain volume is age appropriate. Asymmetry to the right ventricular system posterior lateral ventricle with well-defi sandra lesion isointense to CSF measuring approximately 3.5 x 1.9 cm axial images 17 through 19 are susp icious for intraventricular arachnoid cyst. This is causing asymmetric slight postobstructive ex vacu ole dilatation of the right temporal horn versus the opposite left side. T2 coronal weighted images s how hippocampal gyri to appear symmetric and thought within normal limits. Midline structures demonstrate normal morphology. There is fullness of the pituitary gland extending to suprasellar level which is appropriate with patient's age and gender. Small area of nonenhancemen t posteriorly could reflect small microadenoma in appropriate clinical setting sagittal image 78. Cor relate clinically. There is heterogeneous with prominent enhancement near this level surrounding the internal carotid arteries bilaterally. Linear Extension along the top of the clivus is noted. Infiltr ative lesion at this level cannot be excluded. The craniocervical junction appears within normal limits. Post contrast images demonstrate no abnormal enhancement. The dural venous sinuses appear patent. The visualized sinuses are clear and the globes are intact. IMPRESSION: 1. There is 3.5 cm right sided intraventricular arachnoid cyst with local mass effect and slight post obstructive ex vacuo dilatation or hydrocephalus right temporal horn. 2. Prominent pituitary with area of nonenhancement posteriorly. Surrounding enhancement appears to en case portion of the distal internal carotid arteries. An infiltrative process cannot be excluded. Dif ferential would include sarcoidosis. Other etiologies not excluded. Clinical correlation and follow-u p advised. Patient may benefit with more dedicated small field of view or temporal/IAC CT/MRI evalua tion based on clinical correlation.
--- NOTE | 2020-11-13 16:35 | EEG ---
ELECTROENCEPHALOGRAM REPORT DATE OF SERVICE: 11/13/2020. CLINICAL HISTORY: This is a 30-year-old woman with an episode of confusion. The video EEG is obtained to evaluate for seizure epileptiform activity. RELEVANT MEDICATION: The patient is not on any antiepileptic drug. EEG TYPE: A routine 21-channel EEG is performed with video using the 10/20 electrode placement system. DESCRIPTION: Wakefulness and drowsiness are obtained. During wakefulness there is a posterior- dominant rhythm of low to moderate voltage that is well modulated, well sustained of 11 to 11-1/2 hertz activity. During drowsiness there is slowing and attenuation of the background activity. There is no physiological stage 2 sleep architecture seen. There is no focal slowing seen. Interictal and ictal is none. ACTIVATION PROCEDURE: Photic stimulation and hyperventilation are not performed. CLINICAL INTERPRETATION: This is a normal routine EEG. There are no focal slowing, epileptiform discharges or seizure on the EEG. Clinical correlation is recommended. MELISSA / BEATRIS: [id number] / MTDD
[2020-11-13] MEDS ORDERED: MELATONIN 5 MG TABLET PO SCH (21:00)
[2020-11-13 23:34] LABS: Folate, Serum >24.0 ng/mL
[2020-11-14 02:24] VITALS: RESP 18
[2020-11-14] MEDS: IBUPROFEN 600 MG TAB PO PRN (05:35)
[2020-11-14 06:55] LABS: African American GFR (CKD) >90 (>60 ml/min/1.73 sqM); Anion Gap 10 mmol/L; Blood Urea Nitrogen 13 mg/dL (7-17); Calcium 9.8 mg/dL (8.4-10.2); Carbon Dioxide 23 mmol/L (22-30); Chloride 106 mmol/L (98-107); Glucose 87 mg/dL (74-99); Non-African American GFR(CKD) >90 (>60 ml/min/1.73 sqM); Potassium 4.2 mmol/L (3.5-5.1); Sodium 139 mmol/L (137-145)
[2020-11-14] MEDS ORDERED: CYANOCOBALAMIN 1,000 MCG/ML 1 ML VIAL IM ONE (08:09)
--- NOTE | 2020-11-14 08:44 | P.PN ---
Subjective Progress Note Date: 11/14/20 The patient seen at bedside and she stated that she's doing well. Denies of any new neurological deficits. No seizure-like activity events while in the hospital. Objective - Vital Signs Vital signs: Vital Signs Temp 98.2 F 11/14/20 07:00 Pulse 53 L 11/14/20 07:00 Resp 18 11/14/20 07:00 BP 97/62 11/14/20 07:00 Pulse Ox 99 11/14/20 07:00 Intake & Output 11/13/20 11/14/20 11/14/20 18:59 06:59 18:59 Intake Total 210 120 Balance 210 120 Intake: Oral 210 120 Other: Voiding Method Toilet # Voids 1 3 0 - Exam GENERAL: The patient is lying in bed and is mild to moderate acute distress. NEUROLOGICAL: Higher mental function: The patient is awake, alert, oriented to self, place and time. Patient is following commands. No aphasia and no neglect. Cranial nerves: The pupils are round, equal and reactive to light and accommodation. Patient has photophobia. Visual english are full to confrontation throughout. Extraocular movement is intact no nystagmus is noted. Facial sensation is normal to touch throughout. The facial strength is normal throughout. Hearing is normal bilaterally to hand rub. Tongue is midline and moved [id number] without any difficulty. No dysarthria is noted. Shoulder shrug is normal bilaterally. Motor: Gait is deferred. The strength is left upper hand oral pathologist is 4+ and forearm is 4+ while proximally seemed 5-. Otherwise rest are 5 over 5 throughout. Normal tone and bulk. Cerebellum: Normal finger to nose heel to kim bilaterally. Sensation: Sensation is normal to touch throughout. Reflexes (right/left): 2+ throughout except brachioradialis and patellar are 3+ bilaterally . Plantars are downgoing bilaterally. WORK-UP: MR the brain is reported as there is 3.5 centimeter right-sided intraventricular arachnoid cyst with local mass effect and slight post obstructive ex vacuo d ilation or hydrocephalus right temporal horn. Prominent pituitary with area of non-enhancement posteriorly surrounding enhancement appears to encase portion of the distal internal carotid arteries. An infiltrative process cannot be excluded. Differential would include sarcoidosis. Other etiologies not excluded. Local correlation and follow-up advised. Patient the May and benefits with more dedicated small field of view or temporal/IAC CT/MRI evaluation based on clinical correlation. CT angiography of the head and neck is reported as normal Routine EEG on 11/13/2020: Is normal. There are no focal slowing, epileptiform discharges or seizure on EEG Vitamin B12 is 262 which is considered and it not low normal. Serum folate is more than 24 TSH is 0.954. - Labs CBC & Chem 7: 11/12/20 13:47 11/14/20 05:02 Assessment and Plan Assessment: This is a 30-year-old woman the presented emergency department on 11/12/2020 for headache for the last couple months but over the last 3 days has been feeling very dizzy as well as confusion. She has episode of passing out and hitting her head. * Episode of headache and dizziness for the past 3 month and recent confusion lasting 10 minutes of unknown etiology at this time (unknown etiology of encephalopathy). No acute stroke. The patient has right-sided intr aventricular arachnoid cyst with local mass effect and slight post obstructive ex vacuo dilation or hydrocephalus right temporal horn. * Elevated calcium can and low vitamin B12 (level is 262) * Prominent Pituitary * Positive marijuana use Plan: I gave the patient the vitamin B12 1000 g IM. I started the patient on vitamin B12 1000 g daily. I ordered IAC regarding following read of MRI Brain (showing enhancement over the internal carotids). Ordered a an [id number] DNA. Continue on melatonin 5 mg daily at bedtime which could help with the headache. Use naproxen when necessary for headaches. Every 4 hours neuro checks Consulted PT and OT Regarding the enlarged pituitary recommend outpatient the further evaluation/management. Also consider further workup of lupus (if patient continues to have symptoms). We'll defer the rest of the medical management to the primary team. The patient was notified to follow up with a neurologist within 1-2 weeks as an outpatient. Besides workup above there is no other workup needed. The plan was discussed with the primary team. Rylan Arriaga M.D. Neuro-hospitalist Time with Patient: Less than 30
[2020-11-14] MEDS ORDERED: IBUPROFEN 400 MG TAB PO STA (09:28)
[2020-11-14 15:10] VITALS: BP 115/72; PULSE 73; TEMP 97.5
--- NOTE | 2020-11-14 15:52 | CT ---
EXAMINATION TYPE: CT iac wo/w con DATE OF EXAM: 11/14/2020 COMPARISON: Brain MRI from yesterday HISTORY: follow up for abnormal MRI. CT DLP: 300 mGycm. Automated Exposure Control for Dose Reduction was Utilized. TECHNIQUE: CT scan of internal auditory canal is performed without and with IV contrast, thin cut axi al images are obtained, coronal reformatted images are also reviewed. Patient injected with 100 cc o f [id number]-300 for the study. FINDINGS: The external auditory canals are patent bilaterally. Mastoid air cells show no evidence of abnormal opacification bilaterally. The middle ear ossicles are symmetric and unremarkable. There is no evidence of suspicious surroundi ng soft tissue density to suggest cholesteatoma. The scutum is preserved bilaterally. The cochlea and the semicircular canals are symmetric and unremarkable. Vestibular aqueduct is maint ained. There is satisfactory contrast opacification of the distal internal carotid arteries extendin g into the [place]. Inferiorly there is heterogeneous enhancement level of the cavernous sinus presumed normal venous enh ancement as there is no suspicious bony destruction. Temporomandibular joints are maintained bilaterally. Visualized paranasal sinuses remain clear. Hypo plastic bilateral frontal sinuses noted. Visualized portion brain parenchyma is felt within normal li mits. IMPRESSION: No suspicious bony destruction or vascular anomaly at level of the cavernous sinuses. The re is mildly enlarged pituitary gland to 11 mm with superior convex margin even for patient's age and gender with slight suprasellar extension. No definitive optic chiasm effacement. Small area of nonen hancement posteriorly could reflect microadenoma. Clinical and lab correlation advised. Pituitary pro tocol MRI follow-up in 6 months time recommended to reassess.
[2020-11-14 16:51] LABS: Anti-DNA, DS unit <1.0 IU/mL; DNA Double-Stranded NEGATIVE (NEGATIVE)
[2020-11-15] MEDS ORDERED: CYANOCOBALAMIN 500 MCG TAB PO SCH (09:00)
--- NOTE | 2020-11-15 21:11 | P.DS ---
Providers Date of admission: 11/12/20 16:03 Attending physician: Arun Donovan Consults: 11/12/20 16:03 Consult Physician Urgent Consulting Provider: Rylan Arriaga Consult Reason/Comments: Confusion, abnormal brain CT Do you want consulting provider notified?: Yes Primary care physician: Claribel Mota Hospital Course: Final diagnoses Migraine, unspecified with or without aura; patient started on a trial dose of naproxen as per recommended by neurology Right-sided intraventricular arachnoid cyst with local mass effect, incidental finding Prominent pituitary, incidental finding confirmed on CT IAC - follow up with MRI in 6 months. Positive marijuana use Hospital course This is a pleasant 30-year-old female who was admitted to the hospital after experiencing a temperature episode of confusion during a car ride on November 12. 3 days prior to that patient experienced a fall and hit her right temporal head on the ground this fall was witnessed by her mother. Patient describes it as a syncopal episode. Patient states that for the last month or longer she has experienced a consistent headache that is a 3 out of 10 at baseline and can be exacerbated by light, position change. Patient was evaluated by neurology, EEG was within normal limits did not reveal any EPILEPTIFORM activity. CT angiography revealed no significant abnormality. Brain MRI revealed a 3.5 cm right-sided intraventricular arachnoid cyst with local mass effect and slight postobstructive ecx vacuo dilation or hydrocephalus right temporal horn. And a prominent pituitary with area of nonenhancing posteriorly. Surrounding enhancement appears to encase portion of the distal internal carotid arteries, an infiltrative process cannot be excluded. Differential diagnosis would be sarcoidosis. Temporal/IAC CT/MRI evaluation based on clinical correlation is recommended. Patient is currently pending at this time. Vital signs have remained stable this admission, temp of 97.5, heart rate 73, BP 115/72, 19% room air. She had a metabolic panel within normal limits. Corvert is not detectable. Toxicology is negative except for marijuana, patient does admit to eating one edible to help her sleep. Patient was started on oral vitamin B12 from neurology services due to the findings of a low normal of 262. Folate was within normal limits. Troponin was negative. AST and ALTs within normal limits. Magnesium and potassium are within normal limits. Calcium is 10.4. 11/14/2020 Patient is evaluated the bedside today, alert and oriented 3. She denies chest pain, palpitations, cough, shortness of. Denies dizziness or lightheadedness. She does still report a 4 out of 10 headache in her bilateral temples that radiates to the back of her habitus consistent with the headache she is experiencing. Patient has been receiving Motrin this hospitalization for her headache, it is not helping. Patient will be discharged home on a trial of naproxen and to follow-up with her PCP and neurology. Focused neurological exam redemonstrate some mild right-sided weakness. If IAC CT is within normal limits, patient is cleared from neurology services. Please see medication reconciliation for a list of current medications. Thank you for us to participate in the care of this patient. Plan - Discharge Summary Discharge Rx Participant: No New Discharge Prescriptions: New Naproxen 375 mg PO BID #20 tablet Pantoprazole Sodium [Protonix] 40 mg PO DAILY #30 tab Melatonin 5 mg PO HS tablet Cyanocobalamin [Vitamin B-12] 1,000 mcg PO DAILY #30 tab Discharge Medication List Cyanocobalamin [Vitamin B-12] 1,000 mcg PO DAILY #30 tab 11/14/20 [Rx] Melatonin 5 mg PO HS tablet 11/14/20 [Rx] Naproxen 375 mg PO BID #20 tablet 11/14/20 [Rx] Pantoprazole Sodium [Protonix] 40 mg PO DAILY #30 tab 11/14/20 [Rx] Follow up Appointment(s)/Referral(s): Svetlnaa Sanford MD [Primary Care Provider] - 1-2 days (Please call when office is open to make appointment) Tonya Alvarado MD [REFERRING] - 12/06/20 8:45 am Patient Instructions/Handouts: Migraine Headache (GEN) Activity/Diet/Wound Care/Special Instructions: Patient will need to follow-up with neurology in 1-2 weeks on discharge Patient can also follow up with ENT to evaluate for the left-sided tinnitus. Patient can take naproxen as needed for migraine Continue on melatonin to promote sleep Patient should keep a migraine and food diary to bring to her PCP and neurology appointment Avoid caffeine, encourage adequate oral intake Discharge Disposition: HOME SELF-CARE
== END 2020-11-14 17:20 | disposition home or self-care (01) ==
LOC: EC 11:51 → 6NMEDSUR 16:03
PROVIDERS: ADMIT Hospitalist; ATTEND Hospitalist
DX: G43.909 Migraine, unspecified, not intractable, without status migrainosus (principal); G93.0 Cerebral cysts; H93.12 Tinnitus, left ear; R53.1 Weakness; R55 Syncope and collapse; G93.40 Encephalopathy, unspecified; E83.52 Hypercalcemia; F43.10 Post-traumatic stress disorder, unspecified; F41.9 Anxiety disorder, unspecified; E66.9 Obesity, unspecified; Z68.31 Body mass index [BMI] 31.0-31.9, adult; Z20.822 Contact with and (suspected) exposure to COVID-19; Z87.19 Personal history of other diseases of the digestive system; Z87.891 Personal history of nicotine dependence; W19.XXXA Unspecified fall, initial encounter; Z88.5 Allergy status to narcotic agent; Z82.49 Family history of ischemic heart disease and other diseases of the circulatory system; Z81.8 Family history of other mental and behavioral disorders; Z82.0 Family history of epilepsy and other diseases of the nervous system; Z80.8 Family history of malignant neoplasm of other organs or systems; R93.0 Abnormal findings on diagnostic imaging of skull and head, not elsewhere classified
CPT/HCPCS: 96372; 96374; 99285; 36415; 95816; 93005; 97162; 97166; 92523; 80053; 80048; 84443; 82330; 82607; 82746; 83735; 84484; 85025; 85610; 85730; 86038; 80306; 86225; 87635; 71046; 70482; 72125; 70496; 70450; 70498; 70553; G0378 ×3; J2060; J3420; A9585; Q9967 ×2

== ENCOUNTER 2020-11-27 11:25 | Emergency (ER) | payer OTHER ==
[2020-11-27 11:39] VITALS: RESP 18; TEMP 98.7
[2020-11-27] MEDS ORDERED: ONDANSETRON 4 MG/2 ML VIAL IVP STA (13:26)
[2020-11-27] MEDS ORDERED: MORPHINE SULFATE 4 MG/ML SYRINGE IV STA (13:26)
[2020-11-27] MEDS ORDERED: diphenhydrAMINE 50 MG/ML 1 ML VIAL IVP STA (13:26)
[2020-11-27] MEDS ORDERED: SODIUM CHLORIDE 0.9% 1,000 ML IV STA (13:26)
[2020-11-27] MEDS ORDERED: MORPHINE SULFATE 4 MG/ML SYRINGE IVP STA (14:34)
--- NOTE | 2020-11-27 16:49 | ED ---
Headache HPI - General Chief Complaint: Headache Stated Complaint: migraine, facial swelling Time Seen by Provider: 11/27/20 13:06 Mode of arrival: ambulatory Limitations: no limitations - History of Present Illness Initial Comments: A she is a 30-year-old female that comes in complaining of migraine type headache. 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 She does have a follow-up with a neurologist on December 06 but is having continuing symptoms. She notes only takes naproxen Motrin at home. She denied any new symptoms at this time. She is otherwise a well-appearing 22-year-old female in no apparent distress. She denied any pain shortness of breath vomiting diarrhea constipation fever fatigue chills. - Related Data Previous Rx's Medication Instructions Recorded Cyanocobalamin [Vitamin B-12] 1,000 mcg PO DAILY #30 tab 11/14/20 Naproxen 375 mg PO BID #20 tablet 11/14/20 Pantoprazole Sodium [Protonix] 40 mg PO DAILY #30 tab 11/14/20 Topiramate [Topamax] 25 mg PO BID 15 Days #30 cap 11/27/20 Allergies Allergy/AdvReac Type Severity Reaction Status Date / Time hydrocodone [From [place]] AdvReac Abdominal Verified 11/27/20 13:29 Pain Review of Systems ROS Statement: Those systems with pertinent positive or pertinent negative responses have been documented in the HPI. ROS Other: All systems not noted in ROS Statement are negative. Past Medical History Past Medical History: No Reported History Additional Past Medical History / Comment(s): abdominal pain,Hx OVARIAN CYSTS History of Any Multi-Drug Resistant Organisms: None Reported Past Surgical History: Bowel Resection, Section, Hernia Repair Additional Past Surgical History / Comment(s): colon biopsy, x2,mass removed from lower stomach Past Anesthesia/Blood Transfusion Reactions: No Reported Reaction Past Psychological History: Anxiety, PTSD Smoking Status: Never smoker Past Alcohol Use History: None Reported Past Drug Use History: None Reported - Past Family History Mother Family Medical History: No Reported History Father Family Medical History: No Reported History General Exam Limitations: no limitations General appearance: alert, in no apparent distress Head exam: Present: atraumatic, normocephalic, normal inspection Eye exam: Present: normal appearance, PERRL, EOMI. Absent: scleral icterus, conjunctival injection, periorbital swelling ENT exam: Present: normal exam, mucous membranes moist Neck exam: Present: normal inspection Respiratory exam: Present: normal lung sounds bilaterally. Absent: respiratory distress, wheezes, rales, rhonchi, stridor Cardiovascular Exam: Present: regular rate, normal rhythm, normal heart sounds. Absent: systolic murmur, diastolic murmur, rubs, gallop, clicks Extremities exam: Present: normal inspection, full ROM, normal capillary refill. Absent: tenderness, pedal edema, joint swelling, calf tenderness Neurological exam: Present: alert, oriented X3 Psychiatric exam: Present: normal affect, normal mood Skin exam: Present: warm, dry, intact, normal color. Absent: rash Course Vital Signs 11/27/20 11:36 Temperature 98.7 F Pulse Rate 84 Respiratory 18 Rate Blood Pressure 128/83 O2 Sat by Pulse 98 Oximetry Medical Decision Making - Medical Decision Making 30-year-old female complaining of migraine type headache. 1 L normal saline, 4 g of morphine, 4 mg of Zofran, 50 mg of Benadryl ordered. Upon reevaluation patient states that she still having pain, 4 mg of morphine ordered. Dr. Arriaga was consulted and states the patient can start Topamax twice a day 25 mg. He notes that patient is non-admit patient and she can follow-up outpatient as scheduled. Case discussed with Dr. Tse, patient discharge home. Disposition Clinical Impression: Migraine headache Disposition: HOME SELF-CARE Condition: Stable Instructions (If sedation given, give patient instructions): Acute Headache (ED) Additional Instructions: Please return to the Emergency Department if symptoms worsen or any other concerns. Follow-up with primary care 1-2 days. Take Topamax as prescribed. Follow-up with urologist as planned. Prescriptions: Topiramate [Topamax] 25 mg PO BID 15 Days #30 cap Is patient prescribed a controlled substance at d/c from ED?: No Referrals: Svetlana Sanford MD [Primary Care Provider] - 1-2 days Time of Disposition: 16:54
[2020-11-27] MEDS ORDERED: KETOROLAC 15 MG/ML 1 ML VIAL IVP STA (16:55)
[2020-11-27 17:04] VITALS: BP 125/89; PULSE 66
== END 2020-11-27 17:04 | disposition home or self-care (01) ==
LOC: EC 11:25
DX: G43.909 Migraine, unspecified, not intractable, without status migrainosus (principal); Z88.5 Allergy status to narcotic agent
CPT/HCPCS: 99284; 96374; 96375; 96376; 96361; J2270; J1200; J2405; J1885

== ENCOUNTER → 2022-08-13 | Outpatient (CLI) | payer OTHER ==
[2022-08-13 14:41] VITALS: BP 135/96; PULSE 94; RESP 18
== END ==
LOC: PNWHC3 13:43
PROVIDERS: ATTEND Specialist
DX: R55 Syncope and collapse (principal); Z88.5 Allergy status to narcotic agent; Z87.891 Personal history of nicotine dependence
CPT/HCPCS: 99211

== ENCOUNTER 2022-09-10 10:08 | Day surgery (SDC) | payer OTHER ==
[2022-09-04 14:19] VITALS: BMI 34.0
[~2022-09-10 10:08] MED LIST changes: -DEXAMETHASONE SOD PHOSPHATE 10 MG/ML 1 ML VIAL IV ONE; -HEPARIN SODIUM,PORCINE 5,000 UNIT/ML 1 ML VIAL SQ ONE; -HYDROmorphone 0.5 MG/0.5 ML SYRINGE IVP PRN; -LIDOCAINE 1% 20 ML VIAL (10MG/ML) FOR IV START INTRADERMA PRN; -ONDANSETRON 4 MG/2 ML VIAL IVP ONE; -SCOPOLAMINE 1.5MG/72HR PATCH TRANSDERM ONE; -ceFAZolin IN SWFI 2 GM/20 ML SYRINGE IVP ONE
[2022-09-10 10:30] VITALS: TEMP 97.4
[2022-09-10] MEDS ORDERED: methylPREDNISolone ACETATE 80 MG/ML 1 ML VIAL ONE (10:58)
[2022-09-10] MEDS ORDERED: ROPIVACAINE 5 MG/ML 20 ML AMPULE ONE (10:58)
--- NOTE | 2022-09-10 11:03 | P.PCN ---
Date of Procedure: 09/10/22 Procedure(s) Performed: Preoperative diagnoses= 1- Greater occipital neuralgia Postoperative diagnoses= 1-greater occipital neuralgia Procedure= Bilateral Greater occipital nerve block Anesthesia= none . Estimated blood loss=minimal. Procedure indication= the patient had a history of severe chronic neck pain ,and headache, diagnosed with occipital neuralgia exam was positive for severe tenderness over the occipital nerve bilaterally, she will be a good candidate occipital nerve block, patient failed conservative management Procedure description= the patient was seen and identified in the preoperative holding area, risks and benefits and alternative of the procedure and possible complications discussed with the patient, and he agreed with the preceding, patient signed the consent, and vital signs were monitored and were stable throughout the procedure, patient was placed in the sitting position or table and the neck area was prepped and draped with a sterile fashion, vital signs were closely monitored during the procedure, 25-gauge needle advanced 1 inch lateral to the occipital protuberance on the right side, at the location of the right occipital nerve , then after negative aspiration for heme and CSF and there was no paresthesia during the injection, 6 ml of Robivacaine 0.5% and 40 mg of Depo-Medrol injected after negative aspiration, the needle removed, and the entire same procedure was repeated for the left Greater occipital nerve. Patient tolerated the procedure well without any complication, The patient returned to supine position after the back was cleaned and a Band- Aid applied, the patient transported to recovery room in stable condition and he was monitored for 30 minutes before he was discharged home and then patient was reexamined before going home and patient was discharged in stable condition and patient will follow up with the pain clinic in a few weeks. note= patient was scheduled to have the left side occipital nerve block, and the preop holding area patient reported that she has severe headache on both sides, for this reason we checked with the insurance administrator and it was okay to do the procedure bilaterally for this reason, we did bilateral occipital nerve block
[2022-09-10 11:09] VITALS: BP 122/81; PULSE 70; RESP 20
== END 2022-09-10 11:25 | disposition home or self-care (01) ==
LOC: ORPAIN 10:08
PROVIDERS: ATTEND Specialist
DX: M54.81 Occipital neuralgia (principal)
CPT/HCPCS: 64405; J1040; J2795

== ENCOUNTER 2022-12-05 06:31 | Emergency (ER) | payer OTHER ==
[2022-12-05 06:42] VITALS: TEMP 98
[2022-12-05 07:21] VITALS: PULSE 68; RESP 16
--- NOTE | 2022-12-05 07:40 | ED ---
General Adult HPI - General Chief complaint: Extremity Problem,Nontraumatic Stated complaint: arm swelling Time Seen by Provider: 12/05/22 07:00 Source: patient, RN notes reviewed, old records reviewed Mode of arrival: ambulatory Limitations: no limitations - History of Present Illness Initial comments: This is a 32-year-old female presents emergency Department complaining that she woke up this morning and felt a little tingling in the medial aspect of her right hand as well as the right forearm. Patient denies any weakness patient is a swelling patient denies any color change. Patient states it stopped at the elbow. Patient states there's been no injury. Patient states she doesn't do any significant heavy lifting. Patient states she's able to feel everything just feels different than normal. Patient denies any neck pain. - Related Data Home Medications Medication Instructions Recorded Confirmed Cyclobenzaprine [Flexeril] 5 mg PO HS 09/04/22 09/10/22 busPIRone HCL 10 mg PO BID 09/04/22 09/10/22 Previous Rx's Medication Instructions Recorded Topiramate [Topamax] 25 mg PO BID 15 Days #30 cap 11/27/20 Polymyxin B-Trimeth Sulf Ophth 1 drops LEFT EYE Q4H 10 Days #10 ml 09/18/22 [Polytrim Opthalmic] Allergies Allergy/AdvReac Type Severity Reaction Status Date / Time hydrocodone [From [place]] AdvReac Abdominal Verified 12/05/22 06:38 Pain Review of Systems ROS Statement: Those systems with pertinent positive or pertinent negative responses have been documented in the HPI. ROS Other: All systems not noted in ROS Statement are negative. Past Medical History Past Medical History: No Reported History Additional Past Medical History / Comment(s): abdominal pain,Hx OVARIAN CYSTS, Migraine. brain tumor, History of Any Multi-Drug Resistant Organisms: None Reported Past Surgical History: Bowel Resection, Section, Hernia Repair, Hysterectomy Additional Past Surgical History / Comment(s): colon biopsy, x2,mass removed from lower stomach Past Anesthesia/Blood Transfusion Reactions: No Reported Reaction Past Psychological History: Anxiety, PTSD Smoking Status: Never smoker Past Alcohol Use History: Occasional Past Drug Use History: Marijuana - Past Family History Mother Family Medical History: No Reported History Father Family Medical History: No Reported History General Exam - General Exam Comments Initial Comments: GENERAL: Patient is well-developed and well-nourished. Patient is nontoxic and well- hydrated and is in no acute distress. ENT: Neck is soft and supple. No significant lymphadenopathy is noted. Oropharynx is clear. Moist mucous membranes. Neck has full range of motion without e liciting any pain. EYES: The sclera were anicteric and conjunctiva were pink and moist. Extraocular movements were intact and pupils were equal round and reactive to light. Eyelids were unremarkable. PULMONARY: Unlabored respirations. Good breath sounds bilaterally. No audible rales rhonchi or wheezing was noted. CARDIOVASCULAR: There is a regular rate and rhythm without any murmurs gallops or rubs. ABDOMEN: Soft and nontender with normal bowel sounds. SKIN: Skin is clear with no lesions or rashes and otherwise unremarkable. NEUROLOGIC: Patient is alert and oriented x3. Cranial nerves II through XII are grossly intact. Motor and sensory are also intact. Normal speech, volume and content. Symmetrical smile. MUSCULOSKELETAL: Normal extremities with adequate strength and full range of motion. No lower extremity swelling or edema. No calf tenderness. LYMPHATICS: No significant lymphadenopathy is noted PSYCHIATRIC: Normal psychiatric evaluation. Limitations: no limitations Course Vital Signs 12/05/22 12/05/22 06:36 07:19 Temperature 98 F Pulse Rate 84 68 Respiratory 18 16 Rate Blood Pressure 135/92 136/101 O2 Sat by Pulse 100 98 Oximetry Medical Decision Making - Medical Decision Making Was pt. sent in by a medical professional or institution (, PA, CONTENT PUBLISHER, urgent care, hospital, or snf...) When possible be specific @ -No Did you speak to anyone other than the patient for history (EMS, parent, family, police, friend...)? What history was obtained from this source @ -No Did you review nursing and triage notes (agree or disagree)? Why? @ -I reviewed and agree with nursing and triage notes Were old charts reviewed (outside hosp., previous admission, EMS record, old EKG, old radiological studies, urgent care reports/EKG's, snf records)? Report findings @ -No old charts were reviewed Differential Diagnosis (chest pain, altered mental status, abdominal pain women, abdominal pain men, vaginal bleeding, weakness, fever, dyspnea, syncope, headache, dizziness, GI bleed, back pain, seizure, CVA, palpatations, mental health, musculoskeletal)? @ -not applicable EKG interpreted by me (3pts min.). @ -As above X-rays interpreted by me (1pt min.). @ -None done CT interpreted by me (1pt min.). @ -None done U/S interpreted by me (1pt. min.). @ -None done What testing was considered but not performed or refused? (CT, X-rays, U/S, labs)? Why? @ -None What meds were considered but not given or refused? Why? @ -None Did you discuss the management of the patient with other professionals (professionals i.e. [employer], PA, CONTENT PUBLISHER, lab, RT, psych nurse, social security assessor, rpg programmer analyst, teacher, fare enforcement officer, showcase maker)? Give summary @ -No Was smoking cessation discussed for >3mins.? @ -No Was critical care preformed (if so, how long)? @ -No Were there social determinants of health that impacted care today? How? (Homelessness, low income, unemployed, alcoholism, drug addiction, transportation, low edu. Level, literacy, decrease access to med. care, senior care, rehab)? @ -No Was there de-escalation of care discussed even if they declined (Discuss DNR or withdrawal of care, Hospice)? DNR status @ -No What co-morbidities impacted this encounter? (DM, HTN, Smoking, COPD, CAD, C ancer, CVA, ARF, Chemo, Hep., AIDS, mental health diagnosis, sleep apnea, morbid obesity)? @ -None Was patient admitted / discharged? Hospital course, mention meds given and route, prescriptions, significant lab abnormalities, going to OR and other pertinent info. @ -Patient had no neuro deficit that was subjective. Patient had normal lab work patient will follow-up when necessary with her physician Undiagnosed new problem with uncertain prognosis? @ -No Drug Therapy requiring intensive monitoring for toxicity (Heparin, Nitro, Insulin, Cardizem)? @ -No Were any procedures done? @ -No Diagnosis/symptom? @ -Paresthesias Acute, or Chronic, or Acute on Chronic? @ -Acute Uncomplicated (without systemic symptoms) or Complicated (systemic symptoms)? @ -Uncomplicated Side effects of treatment? @ -No Exacerbation, Progression, or Severe Exacerbation? @ -No Poses a threat to life or bodily function? How? (Chest pain, USA, MD, pneumonia, PE, COPD, DKA, ARF, appy, cholecystitis, CVA, Diverticulitis, Homicidal, Suici bg, threat to staff... and all critical care pts) @ -No - Lab Data Result diagrams: 12/05/22 07:36 12/05/22 07:36 Lab Results 12/05/22 12/05/22 Range/Units 07:36 07:36 WBC 8.3 (3.8-10.6) k/uL RBC 4.68 (3.80-5.40) m/uL Hgb 14.3 (11.4-16.0) gm/dL Hct 43.7 (34.0-46.0) % MCV 93.5 (80.0-100.0) fL MCH 30.6 (25.0-35.0) pg MCHC 32.7 (31.0-37.0) g/dL RDW 12.8 (11.5-15.5) % Plt Count 306 (150-450) k/uL MPV 7.6 Neutrophils % 59 % Lymphocytes % 33 % Monocytes % 5 % Eosinophils % 2 % Basophils % 0 % Neutrophils # 4.8 (1.3-7.7) k/uL Lymphocytes # 2.8 (1.0-4.8) k/uL Monocytes # 0.4 (0-1.0) k/uL Eosinophils # 0.2 (0-0.7) k/uL Basophils # 0.0 (0-0.2) k/uL Sodium 141 (137-145) mmol/L Potassium 3.9 (3.5-5.1) mmol/L Chloride 106 (98-107) mmol/L Carbon Dioxide 24 (22-30) mmol/L Anion Gap 11 mmol/L BUN 13 (7-17) mg/dL Creatinine 0.65 (0.52-1.04) mg/dL Est GFR (CKD-EPI)AfAm >90 (>60 ml/min/1.73 sqM) Est GFR (CKD-EPI)NonAf >90 (>60 ml/min/1.73 sqM) Glucose 77 (74-99) mg/dL Calcium 9.8 (8.4-10.2) mg/dL Magnesium 2.0 (1.6-2.3) mg/dL Total Bilirubin 0.5 (0.2-1.3) mg/dL AST 42 H (14-36) U/L ALT 52 H (4-34) U/L Alkaline Phosphatase 111 (38-126) U/L Total Protein 8.3 H (6.3-8.2) g/dL Albumin 4.7 (3.5-5.0) g/dL Disposition Clinical Impression: Paresthesias Disposition: HOME SELF-CARE Instructions (If sedation given, give patient instructions): Paresthesia (ED) Is patient prescribed a controlled substance at d/c from ED?: No Referrals: Dacia Tariq [Primary Care Provider] - 1-2 days Time of Disposition: 08:29
[2022-12-05 07:57] LABS: Basophils % (A) 0 %; Eosinophils # (A) 0.2 k/uL (0-0.7); Eosinophils % (A) 2 %; HCT 43.7 % (34.0-46.0); HGB 14.3 gm/dL (11.4-16.0); Lymphocytes # (A) 2.8 k/uL (1.0-4.8); Lymphocytes % (A) 33 %; MCH 30.6 pg (25.0-35.0); MCHC 32.7 g/dL (31.0-37.0); MCV 93.5 fL (80.0-100.0); Mean Platelet Volume 7.6; Monocytes # (A) 0.4 k/uL (0-1.0); Monocytes % (A) 5 %; Neutrophils # (A) 4.8 k/uL (1.3-7.7); Neutrophils % (A) 59 %; Platelet Count 306 k/uL (150-450); RBC 4.68 m/uL (3.80-5.40); RDW 12.8 % (11.5-15.5); WBC 8.3 k/uL (3.8-10.6)
[2022-12-05 08:22] LABS: ALT 52 U/L (4-34); AST 42 U/L (14-36); African American GFR (CKD) >90 (>60 ml/min/1.73 sqM); Albumin 4.7 g/dL (3.5-5.0); Alkaline Phosphatase 111 U/L (38-126); Anion Gap 11 mmol/L; Blood Urea Nitrogen 13 mg/dL (7-17); Calcium 9.8 mg/dL (8.4-10.2); Carbon Dioxide 24 mmol/L (22-30); Chloride 106 mmol/L (98-107); Glucose 77 mg/dL (74-99); Non-African American GFR(CKD) >90 (>60 ml/min/1.73 sqM); Potassium 3.9 mmol/L (3.5-5.1); Sodium 141 mmol/L (137-145); Total Bilirubin 0.5 mg/dL (0.2-1.3); Total Protein 8.3 g/dL (6.3-8.2)
[2022-12-05 08:38] VITALS: BP 135/68
== END 2022-12-05 08:37 | disposition home or self-care (01) ==
LOC: EC 06:31
DX: R20.2 Paresthesia of skin (principal); F41.9 Anxiety disorder, unspecified; F12.90 Cannabis use, unspecified, uncomplicated; Z79.899 Other long term (current) drug therapy; Z88.5 Allergy status to narcotic agent
CPT/HCPCS: 36415; 80053; 83735; 85025; 99283

== ENCOUNTER 2023-01-01 12:58 | Day surgery (SDC) | payer OTHER ==
[2023-01-01 14:31] VITALS: TEMP 97.6
[2023-01-01] MEDS ORDERED: LIDOCAINE 1% INJ 10MG/ML (20 ML MDV) ONE (15:00)
[2023-01-01] MEDS ORDERED: PROPOFOL 10 MG/ML 20 ML VIAL IV ONE (15:00)
--- NOTE | 2023-01-01 15:13 | P.PCN ---
Date of Procedure: 01/01/23 Procedure(s) Performed: BRIEF HISTORY: Patient is a 32-year-old, pleasant, white female scheduled for an upper endoscopy as a part of evaluation of dysphagia to solids for the last 1 month duration. She denies any heartburn. PROCEDURE PERFORMED: Esophagogastroduodenoscopy with biopsy and dilation. PREOPERATIVE DIAGNOSIS:. Dysphagia to solids of 1 month duration. IV sedation per anesthesia. PROCEDURE: After informed consent was obtained, the patient was brought into the endoscopy unit. IV sedation was administered by Anesthesia under continuous monitoring. Initially the Olympus GIF-140 video endoscope was inserted into the mouth. Esophagus intubated without any difficulty. It was gradually advanced into the stomach and duodenum and carefully examined. The bulb and the second part of the duodenum appeared normal. The scope at this time was withdrawn to the stomach, adequately insufflated with air, and upon careful examination, mucosa of the antrum, body, cardia and the fundus appeared normal. The scope was then withdrawn into the esophagus. The GE junction was located at 39 cm from the incisors. The lower esophageal stent appeared slightly tight and no obvious stricture identified. Empiric dilation was performed using 18-20 mm TTS balloon for 60 seconds. Mucosal folds in the distal esophagus is slightly thickened and hence biopsies were done from the mid and distal esophagus. Rest of esophagus appeared normal. There were no erosions or ulcerations seen and the patient lucas erated the procedure well. IMPRESSION: 1. Mild thickened distal esophageal folds status post biopsies to evaluate for years of esophagitis. 2. Tightness of the lower esophageal sphincter status post and crit balloon dilation using 18-20 mm TTS balloon as described above. RECOMMENDATIONS: The findings of this examination were discussed with the patient as well as a family. She was advised to follow with the biopsy results. Remain on clear liquids for 2 hours. Follow up in office in 2 weeks..
[2023-01-01 15:37] VITALS: BP 126/87; PULSE 67; RESP 20
== END 2023-01-01 16:24 ==
LOC: ORWHC2ENDO 12:58
PROVIDERS: ATTEND Internal Medicine Gastroenterology
DX: K20.90 Esophagitis, unspecified without bleeding (principal); G43.909 Migraine, unspecified, not intractable, without status migrainosus; F41.9 Anxiety disorder, unspecified; Z88.9 Allergy status to unspecified drugs, medicaments and biological substances; Z79.899 Other long term (current) drug therapy
CPT/HCPCS: 88305; 43239; 43249; J2001; J2704; C1726

== ENCOUNTER 2023-01-13 09:12 | Emergency (ER) | payer OTHER ==
[2023-01-13] MEDS ORDERED: MAG HYDROX/AL HYDROX/SIMETH 30 ML, HYOSCYAMINE ELIXIR 10 ML, LIDOCAINE VISCOUS 2% 10 ML PO STA ×3 (09:38)
[2023-01-13] MEDS ORDERED: DEXAMETHASONE SOD PHOSPHATE 10 MG/ML 1 ML VIAL IM STA (09:38)
--- NOTE | 2023-01-13 09:58 | ED ---
ENT HPI - General Chief complaint: ENT Stated complaint: tongue swelling Time Seen by Provider: 01/13/23 09:15 Source: patient, RN notes reviewed Mode of arrival: ambulatory Limitations: no limitations - History of Present Illness Initial comments: This is a 32-year-old female who presents to the emergency department for difficulty swallowing and tongue numbness. States that yesterday she started feeling like it was becoming hard to swallow. She does have a sore throat as well. She is having pain to the roof of the mouth, which she believes is the result of her forcing herself to swallow. She then started to notice that her tongue felt numb. She was unsure if this may be related to something she ate, so she took Benadryl. However, she had no relief in symptoms afterwards. Denies any coughing or congestion. She has a history of esophagitis and on 01/01 had an EGD with esophageal dilation with Dr. Reid. Additionally, states that the difficulty swallowing has been occurring intermittently for a couple of months and no clear cause for her symptoms was identified. She has been on Omeprazole for 2 weeks with no relief. MD complaint: sore throat, difficulty swallowing - Related Data Home Medications Medication Instructions Recorded Confirmed Cyclobenzaprine [Flexeril] 5 mg PO HS 09/04/22 01/01/23 busPIRone HCL 10 mg PO BID 09/04/22 01/01/23 Venlafaxine HCl ER [Effexor Xr] 37.5 mg PO HS 12/30/22 01/01/23 estradioL [Leeann 0.1 MG/24 HR] 1 patch TRANSDERM Q84H 12/30/22 01/01/23 hydrOXYzine HCL [Hydroxyzine HCl] 25 mg PO DAILY PRN 12/30/22 01/01/23 Previous Rx's Medication Instructions Recorded Topiramate [Topamax] 25 mg PO BID 15 Days #30 cap 11/27/20 Allergies Allergy/AdvReac Type Severity Reaction Status Date / Time hydrocodone [From [place]] AdvReac Abdominal Verified 01/13/23 09:18 Pain Review of Systems ROS Statement: Those systems with pertinent positive or pertinent negative responses have been documented in the HPI. ROS Other: All systems not noted in ROS Statement are negative. Past Medical History Past Medical History: No Reported History Additional Past Medical History / Comment(s): abdominal pain,Hx OVARIAN CYSTS, Migraine. brain tumor, liver failure with last ,having difficulty swallowing, constant ringing in ears History of Any Multi-Drug Resistant Organisms: None Reported Past Surgical History: Bowel Resection, Section, Hernia Repair, Hysterectomy Additional Past Surgical History / Comment(s): colon biopsy, x2, 3 masses removed from lower abdominal wall Past Anesthesia/Blood Transfusion Reactions: No Reported Reaction Past Psychological History: Anxiety, PTSD Smoking Status: Former smoker - Past Family History Mother Family Medical History: No Reported History Father Family Medical History: No Reported History General Exam Limitations: no limitations General appearance: alert, in no apparent distress Head exam: Present: atraumatic, normocephalic, normal inspection ENT exam: Present: other (Minor posterior pharyngeal erythema. No tongue swelling. No tonsillar hypertrophy or exudates.) Neck exam: Present: normal inspection. Absent: tenderness, meningismus, lymphadenopathy Respiratory exam: Present: normal lung sounds bilaterally. Absent: respiratory distress, wheezes, rales, rhonchi, stridor Cardiovascular Exam: Present: regular rate, normal rhythm, normal heart sounds. Absent: systolic murmur, diastolic murmur, rubs, gallop, clicks Neurological exam: Present: alert, oriented X3, CN II-XII intact Psychiatric exam: Present: normal affect, normal mood Skin exam: Present: warm, dry, intact, normal color. Absent: rash Course Vital Signs 01/13/23 01/13/23 09:15 11:21 Temperature 98.2 F 98.3 F Pulse Rate 78 63 Respiratory 20 16 Rate Blood Pressure 148/103 121/86 O2 Sat by Pulse 100 99 Oximetry Medical Decision Making - Medical Decision Making This is a 32-year-old female who presents to the emergency department for difficulty swallowing. Was pt. sent in by a medical professional or institution? @ -No Did you speak to anyone other than the patient for history? @ -No Did you review nursing and triage notes? @ -Yes, and I agree, it is accurate with regards to the patient's symptoms. Were old charts reviewed? @ -No Differential Diagnosis? @ -Differential Dysphagia: GERD, neurological issue, tumor, pharyngitis, allergic reaction, this is not meant to be an all-inclusive list. EKG interpreted by me (3pts min.)? @ -Not obtained X-rays interpreted by me (1pt min.)? @ -Not obtained CT interpreted by me (1pt min.)? @ -Not obtained U/S interpreted by me (1pt. min.)? @ -Not obtained What testing was considered but not performed? (CT, X-rays, U/S, labs)? Why? @ -None What meds were considered but not given? Why? @ -None Did you discuss the management of the patient with other professionals? @ -No Did you reconcile home meds? @ -No Was smoking cessation discussed for >3mins.? @ -No Was critical care preformed (if so, how long)? @ -No Were there social determinants of health that impacted care today? How? (Homelessness, low income, unemployed, alcoholism, drug addiction, transportation, low edu. Level, literacy, decrease access to med. care, care home, rehab)? @ -No Was there de-escalation of care discussed even if they declined? (Discuss DNR or withdrawal of care, Hospice)? @ -No What co-morbidities impacted this encounter? (DM, HTN, Smoking, COPD, CAD, Cancer, CVA, Hep., AIDS, mental health diagnosis, sleep apnea, morbid obesity)? @ -Esophagitis Was patient admitted / discharged? @ -Discharged. Covid, influenza, and RSV testing were negative. Strep test negative. Other than some posterior pharyngeal erythema, her physical exam was fairly unremarkable. She was still able to swallow even though she said that it was difficult. There was also no evidence of airway compromise. She was given IM Decadron and a GI cocktail in the emergency department without significant relief in symptoms. However, she requested discharge home at that time. Advised that these intermittent symptoms will likely need further investigation on an outpatient basis. Undiagnosed new problem with uncertain prognosis? @ -None Drug Therapy requiring intensive monitoring for toxicity (Heparin, Nitro, Insulin, Cardizem)? @ -None Were any procedures done? @ -None Diagnosis/symptom? @ -Dysphagia Acute, or Chronic, or Acute on Chronic? @ -Acute Uncomplicated (without systemic symptoms) or Complicated (systemic symptoms)? @ -Uncomplicated Side effects of treatment? @ -None Exacerbation, Progression, or Severe Exacerbation] @ -Not applicable Poses a threat to life or bodily function? @ -No Return precautions reviewed in depth, the patient is instructed to return to the emergency department with any new, worsening, or concerning symptoms. Patient verbalized understanding. This case was discussed in detail with the attending ED physician, Dr. Mena. Presentation, findings, and treatment plan discussed in detail as well. - Lab Data Lab Results 01/13/23 01/13/23 Range/Units 09:48 09:48 Influenza Type A (PCR) Not Detected (Not Detectd) Influenza Type B (PCR) Not Detected (Not Detectd) RSV (PCR) Not Detected (Not Detectd) SARS-CoV-2 (PCR) Not Detected (Not Detectd) Group A Strep (PCR) NOT DETECTED (Not Detectd) Disposition Clinical Impression: Dysphagia Disposition: HOME SELF-CARE Instructions (If sedation given, give patient instructions): Dysphagia (ED) Additional Instructions: Return to the emergency department with any new, worsening, or concerning symptoms. Follow up with your primary care provider in 1-2 days. Is patient prescribed a controlled substance at d/c from ED?: No Referrals: Dacia Tariq [Primary Care Provider] - 1-2 days
[2023-01-13 11:29] VITALS: BP 121/86; PULSE 63; RESP 16; TEMP 98.3
== END 2023-01-13 11:27 | disposition home or self-care (01) ==
LOC: EC 09:12
DX: R13.10 Dysphagia, unspecified (principal); Z86.59 Personal history of other mental and behavioral disorders; Z87.891 Personal history of nicotine dependence; Z88.8 Allergy status to other drugs, medicaments and biological substances; Z20.822 Contact with and (suspected) exposure to COVID-19
CPT/HCPCS: 87651; 87636; 99283; 96372; J1100

== ENCOUNTER 2023-04-21 14:58 | Emergency (ER) | payer OTHER ==
[2023-04-21 15:13] VITALS: TEMP 98.7
[2023-04-21] MEDS: BUTALB/APAP/CAFF 50-325-40MG TAB PO STA (16:27)
[2023-04-21] MEDS: SODIUM CHLORIDE 0.9% 500 ML 500 ML IV STA (16:54)
[2023-04-21 17:18] LABS: Basophils % (A) 0 %; Eosinophils # (A) 0.1 k/uL (0-0.7); Eosinophils % (A) 1 %; HCT 43.3 % (34.0-46.0); HGB 14.4 gm/dL (11.4-16.0); Lymphocytes # (A) 1.3 k/uL (1.0-4.8); Lymphocytes % (A) 20 %; MCH 29.9 pg (25.0-35.0); MCHC 33.2 g/dL (31.0-37.0); MCV 90.1 fL (80.0-100.0); Mean Platelet Volume 7.6; Monocytes # (A) 0.4 k/uL (0-1.0); Monocytes % (A) 6 %; Neutrophils # (A) 4.6 k/uL (1.3-7.7); Neutrophils % (A) 71 %; Platelet Count 259 k/uL (150-450); RBC 4.81 m/uL (3.80-5.40); RDW 12.6 % (11.5-15.5); WBC 6.4 k/uL (3.8-10.6)
[2023-04-21 17:47] LABS: ALT 66 U/L (4-34); AST 53 U/L (14-36); African American GFR (CKD) >90 (>60 ml/min/1.73 sqM); Albumin 4.7 g/dL (3.5-5.0); Alkaline Phosphatase 133 U/L (38-126); Anion Gap 9 mmol/L; Blood Urea Nitrogen 11 mg/dL (7-17); Calcium 9.9 mg/dL (8.4-10.2); Carbon Dioxide 28 mmol/L (22-30); Chloride 103 mmol/L (98-107); Glucose 94 mg/dL (74-99); Non-African American GFR(CKD) >90 (>60 ml/min/1.73 sqM); Potassium 4.3 mmol/L (3.5-5.1); Sodium 140 mmol/L (137-145); Total Bilirubin 0.4 mg/dL (0.2-1.3); Total Protein 8.3 g/dL (6.3-8.2)
[2023-04-21 17:59] LABS: HCG,Quantitative Serum <2.4 mIU/mL
--- NOTE | 2023-04-21 18:02 | CT ---
EXAMINATION TYPE: CT brain wo con CT DLP: 1136.4 mGycm, Automated exposure control for dose reduction was used. DATE OF EXAM: 04/21/2023 5:36 PM COMPARISON: 11/12/2020. CLINICAL INDICATION:Female, 32 years old with history of headache, hx brain tumor, [place] x3days. Hx of b rain tumor since 2021. Pt c/o losing certain body functions such as walking down stairs. TECHNIQUE: Brain: Axial CT images of the brain were obtained with coronal and sagittal reformats created and rev iewed. Contrast used: None. Oral contrast used: None. FINDINGS: Brain: Extra-axial spaces: No abnormal extra-axial fluid collections. Ventricular system: Within normal limits similar asymmetric dilation of the right lateral ventricle c ompatible with arachnoid cyst.r measures approximately 23 x 18 mm. Cerebral parenchyma: No acute intraparenchymal hemorrhage or mass effect. The sher-white junction is well differentiated. Cerebellum: Unremarkable. Mass effect: No evidence of midline shift. Intracranial vasculature: unremarkable Soft tissues: Normal. Calvarium/osseous structures: No depressed skull fracture. Paranasal sinuses and mastoid air cells: Mild scattered paranasal sinus disease. Visualized orbits: Orbital contents are intact. IMPRESSION: 1. No acute intracranial process. 2. Similar right lateral ventricle arachnoid cyst without evidence for hydrocephalus.
[2023-04-21] MEDS: KETOROLAC 15 MG/ML 1 ML VIAL IVP STA (18:50)
--- NOTE | 2023-04-21 19:42 | ED ---
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 Patient states that her head pain started a few days ago and gradually worsened. She took her Topamax without any improvement. Patient denies any vision changes. She denies any fevers cough or congestion. Patient was told to come in for evaluation by her neurosurgeon. Denies any numbness tingling or paralysis of extremities. Exam. Patient drove herself to the emergency room. She can get a ride home. Patient is menopausal she's had a hysterectomy. - Related Data Home Medications Medication Instructions Recorded Confirmed Cyclobenzaprine [Flexeril] 5 mg PO HS 09/04/22 01/01/23 busPIRone HCL 10 mg PO BID 09/04/22 01/01/23 Venlafaxine HCl ER [Effexor Xr] 37.5 mg PO HS 12/30/22 01/01/23 estradioL [Leeann 0.1 MG/24 HR] 1 patch TRANSDERM Q84H 12/30/22 01/01/23 hydrOXYzine HCL [Hydroxyzine HCl] 25 mg PO DAILY PRN 12/30/22 01/01/23 Previous Rx's Medication Instructions Recorded Topiramate [Topamax] 25 mg PO BID 15 Days #30 cap 11/27/20 Butalb/APAP/Caff 50-325-40Mg 1 tab PO Q6HR PRN 3 Days #12 tablet 04/21/23 [Fioricet 50-325-40] diazePAM [Valium] 2 mg PO Q8HR PRN 3 Days #9 tab 04/21/23 Allergies Allergy/AdvReac Type Severity Reaction Status Date / Time hydrocodone [From [place]] AdvReac Abdominal Verified 04/21/23 15:05 Pain Review of Systems ROS Statement: Those systems with pertinent positive or pertinent negative responses have been documented in the HPI. ROS Other: All systems not noted in ROS Statement are negative. Past Medical History Past Medical History: No Reported History Additional Past Medical History / Comment(s): abdominal pain,Hx OVARIAN CYSTS, Migraine. brain tumor, liver failure with last ,having difficulty swallowing, constant ringing in ears History of Any Multi-Drug Resistant Organisms: None Reported Past Surgical History: Bowel Resection, Section, Hernia Repair, Hysterectomy Additional Past Surgical History / Comment(s): colon biopsy, x2, 3 masses removed from lower abdominal wall Past Anesthesia/Blood Transfusion Reactions: No Reported Reaction Past Psychological History: Anxiety, PTSD Smoking Status: Former smoker Past Alcohol Use History: None Reported Past Drug Use History: Marijuana - Past Family History Mother Family Medical History: No Reported History Father Family Medical History: No Reported History General Exam Limitations: no limitations General appearance: alert, in no apparent distress Head exam: Present: atraumatic Eye exam: Present: normal appearance, PERRL Pupils: Present: normal accommodation ENT exam: Present: normal exam Neck exam: Present: full ROM. Absent: tenderness, meningismus Respiratory exam: Present: normal lung sounds bilaterally Cardiovascular Exam: Present: regular rate, normal rhythm Extremities exam: Present: full ROM Back exam: Present: full ROM Neurological exam: Present: alert, oriented X3, CN II-XII intact, normal gait Psychiatric exam: Present: normal affect, normal mood Skin exam: Present: warm, dry Course Vital Signs 04/21/23 04/21/23 15:00 19:53 Temperature 98.7 F Pulse Rate 102 H 98 Respiratory 18 16 Rate Blood Pressure 167/77 145/89 O2 Sat by Pulse 98 98 Oximetry - Reevaluation(s) Reevaluation #1: 04/21/23 1735 Discussed imaging results with the patient which show a improved or stable mass without any worsening symptoms or lesions. Patient is alert and oriented emergency room with no meningeal signs. She denies a thunderclap headache. She denies any neurological symptoms therefore no MRI was ordered. the patient was feeling better after pain medication. i discussed treatment at home and follow up with neurology. she understands and agrees to treatment and discharge plan. Medical Decision Making - Medical Decision Making Was pt. sent in by a medical professional or institution (, PA, METAL FURNITURE PANEL COVERER, urgent care, hospital, or half-way...) When possible be specific @ -[No] Did you speak to anyone other than the patient for history (EMS, parent, family, police, friend...)? What history was obtained from this source @ -[No] Did you review nursing and triage notes (agree or disagree)? Why? @ -[I reviewed and agree with nursing and triage notes] Were old charts reviewed (outside hosp., previous admission, EMS record, old EKG, old radiological studies, urgent care reports/EKG's, half-way records)? Report findings @ -yes old charts were reviewed] Differential Diagnosis (chest pain, altered mental status, abdominal pain women, abdominal pain men, vaginal bleeding, weakness, fever, dyspnea, syncope, headache, dizziness, GI bleed, back pain, seizure, CVA, palpatations, mental health, musculoskeletal)? @ migraine, headache, worsening brain mass, worsening arachnoid cyst EKG interpreted by me (3pts min.). @ -[As above] X-rays interpreted by me (1pt min.). @ -[None done] CT interpreted by me (1pt min.). @ -[stable arachnoid cyst with no worsening or new mass U/S interpreted by me (1pt. min.). @ -[None done] What testing was considered but not performed or refused? (CT, X-rays, U/S, labs)? Why? @ -[None] What meds were considered but not given or refused? Why? @ -[None] Did you discuss the management of the patient with other professionals (professionals i.e. , PA, METAL FURNITURE PANEL COVERER, lab, RT, psych nurse, dialysis social worker, lease buyer, teacher, licensed loan officer, supervisor case loading)? Give summary @ -[No] Was smoking cessation discussed for >3mins.? @ -[No] Was critical care preformed (if so, how long)? @ -[No] Were there social determinants of health that impacted care today? How? (Homelessness, low income, unemployed, alcoholism, drug addiction, transportation, low edu. Level, literacy, decrease access to med. care, senior living, rehab)? @ -[No] Was there de-escalation of care discussed even if they declined (Discuss DNR or withdrawal of care, Hospice)? DNR status @ -[No] What co-morbidities impacted this encounter? (DM, HTN, Smoking, COPD, CAD, Cancer, CVA, ARF, Chemo, Hep., AIDS, mental health diagnosis, sleep apnea, morbid obesity)? @ -[None] Was patient admitted / discharged? Hospital course, mention meds given and route, prescriptions, significant lab abnormalities, going to OR and other pertinent info. @ -The patient is feeling better after pain medication. She is alert and oriented emergency room no meningeal signs. Head CT is showing no worsening symptoms. Discussed following up with her neurologist for follow-up evaluation further management. She is stable to follow up with her neurologist as an outpatient. Discussed for the pain control as needed at home. Discussed her symptoms workup and disposition with attending ED physician Dr. Tse today Undiagnosed new problem with uncertain prognosis? @ -[No] Drug Therapy requiring intensive monitoring for toxicity (Heparin, Nitro, I nsulin, Cardizem)? @ -[No] Were any procedures done? @ -[No] Diagnosis/symptom? @ -Headache, acute migraine Acute, or Chronic, or Acute on Chronic? @ -[Acute on chronic Uncomplicated (without systemic symptoms) or Complicated (systemic symptoms)? @ -[default] Side effects of treatment? @ -[No] Exacerbation, Progression, or Severe Exacerbation? @ -[No] Poses a threat to life or bodily function? How? (Chest pain, [place], [place], pneumonia, PE, COPD, DKA, ARF, appy, cholecystitis, CVA, Diverticulitis, Homicidal, Suicidal, threat to staff... and all critical care pts) @ -[No] - Lab Data Result diagrams: 04/21/23 16:50 04/21/23 16:50 Lab Results 04/21/23 04/21/23 04/21/23 Range/Units 16:50 16:50 16:50 WBC 6.4 (3.8-10.6) k/uL RBC 4.81 (3.80-5.40) m/uL Hgb 14.4 (11.4-16.0) gm/dL Hct 43.3 (34.0-46.0) % MCV 90.1 (80.0-100.0) fL MCH 29.9 (25.0-35.0) pg MCHC 33.2 (31.0-37.0) g/dL RDW 12.6 (11.5-15.5) % Plt Count 259 (150-450) k/uL MPV 7.6 Neutrophils % 71 % Lymphocytes % 20 % Monocytes % 6 % Eosinophils % 1 % Basophils % 0 % Neutrophils # 4.6 (1.3-7.7) k/uL Lymphocytes # 1.3 (1.0-4.8) k/uL Monocytes # 0.4 (0-1.0) k/uL Eosinophils # 0.1 (0-0.7) k/uL Basophils # 0.0 (0-0.2) k/uL Sodium 140 (137-145) mmol/L Potassium 4.3 (3.5-5.1) mmol/L Chloride 103 (98-107) mmol/L Carbon Dioxide 28 (22-30) mmol/L Anion Gap 9 mmol/L BUN 11 (7-17) mg/dL Creatinine 0.83 (0.52-1.04) mg/dL Est GFR (CKD-EPI)AfAm >90 (>60 ml/min/1.73 sqM) Est GFR (CKD-EPI)NonAf >90 (>60 ml/min/1.73 sqM) Glucose 94 (74-99) mg/dL Calcium 9.9 (8.4-10.2) mg/dL Total Bilirubin 0.4 (0.2-1.3) mg/dL AST 53 H (14-36) U/L ALT 66 H (4-34) U/L Alkaline Phosphatase 133 H (38-126) U/L Total Protein 8.3 H (6.3-8.2) g/dL Albumin 4.7 (3.5-5.0) g/dL HCG, Quant <2.4 mIU/mL Influenza Type A (PCR) Not Detected (Not Detectd) Influenza Type B (PCR) Not Detected (Not Detectd) RSV (PCR) Not Detected (Not Detectd) SARS-CoV-2 (PCR) Not Detected (Not Detectd) - Radiology Data Radiology results: report reviewed, image reviewed Disposition Clinical Impression: Headache, Migraine, Elevated LFTs Narrative: DO NOT WORK OR DRIVE IF YOU TAKE MUSCLE RELAXER. FOLLOW UP WITH NEUROLOGIST RETURN FOR ANY WORSENING OR NEW CONCERNING SYMPTOMS Disposition: HOME SELF-CARE Condition: Good Prescriptions: Butalb/APAP/Caff 50-325-40Mg [Fioricet 50-325-40] 1 tab PO Q6HR PRN 3 Days #12 tablet PRN Reason: Headache diazePAM [Valium] 2 mg PO Q8HR PRN 3 Days #9 tab PRN Reason: Pain Is patient prescribed a controlled substance at d/c from ED?: Yes When asked, does pt state using other controlled substances?: No If prescribed controlled substance>3 days was MAPS reviewed?: Yes Referrals: Dacia Tariq [Primary Care Provider] - 1-2 days Rylan Arriaga MD [STAFF PHYSICIAN] - 1-2 days Time of Disposition: 19:42
[2023-04-21 19:55] VITALS: BP 145/89; PULSE 98; RESP 16
== END 2023-04-21 19:57 | disposition home or self-care (01) ==
LOC: EC 14:58
DX: G43.909 Migraine, unspecified, not intractable, without status migrainosus (principal); R94.5 Abnormal results of liver function studies; F41.9 Anxiety disorder, unspecified; F12.90 Cannabis use, unspecified, uncomplicated; Z79.899 Other long term (current) drug therapy; Z87.891 Personal history of nicotine dependence; Z88.5 Allergy status to narcotic agent; Z20.822 Contact with and (suspected) exposure to COVID-19
CPT/HCPCS: 36415; 80053; 85025; 84702; 87636; 70450; 99284; 96374; 96375; J3360; J1885

== ENCOUNTER 2023-05-26 14:57 | Emergency (ER) | payer OTHER ==
[2023-05-26 15:17] VITALS: TEMP 98.1
--- NOTE | 2023-05-26 15:25 | ED ---
Eye Problem HPI - General Source: patient, RN notes reviewed Mode of arrival: ambulatory Limitations: no limitations <Cindy Pittman - Last Filed: 05/26/23 15:23> - History of Present Illness chief complaint: vision change Onset/Timin -: days(s) Onset Description: sudden Location: right eye, left eye Place: home Eye Symptoms: blurry vision Severity: moderate Consistency: constant Associated Symptoms: none Treatments Prior to Arrival: none <Kishore Pedersen - Last Filed: 05/29/23 07:49> - General Chief complaint: Eye Problems Stated complaint: Possible stroke, blurred vision in L eye Time Seen by Provider: 05/26/23 15:24 - History of Present Illness Initial comments: Quick note: Patient is a 32-year-old female presented to the ER with a chief complaint of peripheral vision loss. She does report she has a brain tumor and her vision loss is a chronic issue. She states it has been worse recently. She was following up with ophthalmology and she states they found abnormalities in her eye concerning of stroke. They told her to present to ER for evaluation. She does admit to left-sided weakness yesterday while at work. Denies any slurred speech or current weakness. (Cindy Pittman) This patient is a 32-year-old woman who is sent here from her optometry clinic to have further evaluation after she presented there this afternoon with vision change. The patient states that she approximately 3 days ago experienced a decrease in the peripheral vision the lateral aspect of her right eye. She states she also about the same time was noting floaters and flashes with the left eye. She went to the optometry clinic today, they performed the exam and told her that they were seeing cotton spots on her left retina and they sent her here for further evaluation. (Kishore Pedersen) - Related Data Home Medications Medication Instructions Recorded Confirmed Cyclobenzaprine [Flexeril] 5 mg PO HS 09/04/22 01/01/23 busPIRone HCL 10 mg PO BID 09/04/22 01/01/23 Venlafaxine HCl ER [Effexor Xr] 37.5 mg PO HS 12/30/22 01/01/23 estradioL [Leeann 0.1 MG/24 HR] 1 patch TRANSDERM Q84H 12/30/22 01/01/23 hydrOXYzine HCL [Hydroxyzine HCl] 25 mg PO DAILY PRN 12/30/22 01/01/23 Previous Rx's Medication Instructions Recorded Topiramate [Topamax] 25 mg PO BID 15 Days #30 cap 11/27/20 Butalb/APAP/Caff 50-325-40Mg 1 tab PO Q6HR PRN 3 Days #12 tablet 04/21/23 [Fioricet 50-325-40] diazePAM [Valium] 2 mg PO Q8HR PRN 3 Days #9 tab 04/21/23 Allergies Allergy/AdvReac Type Severity Reaction Status Date / Time hydrocodone [From [place]] AdvReac Abdominal Verified 04/21/23 15:05 Pain Review of Systems ROS Other: All systems not noted in ROS Statement are negative. <Cindy Pittman - Last Filed: 05/26/23 15:23> ROS Other: All systems not noted in ROS Statement are negative. Constitutional: Denies: fever, chills Eyes: Reports: vision change. Denies: eye pain, eye discharge ENT: Denies: congestion Respiratory: Denies: cough, dyspnea Cardiovascular: Denies: chest pain, palpitations, syncope Gastrointestinal: Denies: abdominal pain, nausea, vomiting, diarrhea Genitourinary: Denies: dysuria, hematuria Musculoskeletal: Denies: back pain Skin: Denies: rash Neurological: Denies: headache, weakness, numbness <Kishore Pedersen - Last Filed: 05/29/23 07:49> ROS Statement: Those systems with pertinent positive or pertinent negative responses have been documented in the HPI. Past Medical History Past Medical History: No Reported History Additional Past Medical History / Comment(s): abdominal pain,Hx OVARIAN CYSTS, Migraine. brain tumor, liver failure with last ,having difficulty swal lowing, constant ringing in ears History of Any Multi-Drug Resistant Organisms: None Reported Past Surgical History: Bowel Resection, Section, Hernia Repair, Hysterectomy Additional Past Surgical History / Comment(s): colon biopsy, x2, 3 masses removed from lower abdominal wall Past Anesthesia/Blood Transfusion Reactions: No Reported Reaction Past Psychological History: Anxiety, PTSD Smoking Status: Former smoker Past Alcohol Use History: None Reported Past Drug Use History: Marijuana - Past Family History Mother Family Medical History: No Reported History Father Family Medical History: No Reported History <Cindy Pittman - Last Filed: 05/26/23 15:23> General Exam Limitations: no limitations <Cindy Pittman - Last Filed: 05/26/23 15:23> Limitations: no limitations General appearance: alert, in no apparent distress Head exam: Present: atraumatic, normocephalic Eye exam: Present: normal appearance, EOMI. Absent: scleral icterus, conjunctival injection, nystagmus, periorbital swelling, periorbital tenderness Pupils: Present: other (I did perform funduscopic exam which does not reveal significant hemorrhage. Minor cotton-wool spots. No optic disc edema) Neck exam: Present: normal inspection, full ROM Respiratory exam: Present: normal lung sounds bilaterally. Absent: respiratory distress, wheezes, rales, rhonchi, stridor Cardiovascular Exam: Present: regular rate, normal rhythm, normal heart sounds. Absent: systolic murmur, diastolic murmur, rubs, gallop GI/Abdominal exam: Present: soft. Absent: distended, tenderness, guarding, rebound, rigid, mass Extremities exam: Present: normal inspection, normal capillary refill. Absent: pedal edema, calf tenderness Back exam: Present: normal inspection. Absent: CVA tenderness (R), CVA tenderness (L) Neurological exam: Present: alert Skin exam: Present: warm, dry, intact, normal color. Absent: rash <Kishore Pedersen - Last Filed: 05/29/23 07:49> - General Exam Comments Initial Comments: Visual Physical Exam Vital signs reviewed General: Well-appearing, nontoxic, no acute distress. Head: Normocephalic, atraumatic Eyes: PERRLA, EOMI ENT: Airway patent Chest: Nonlabored breathing Skin: No visual rash, normal skin tone Neuro: Alert and oriented 3 Musculoskeletal: No gross abnormalities (Cindy Pittman) Course Vital Signs 05/26/23 05/26/23 15:06 19:35 Temperature 98.1 F 98.1 F Pulse Rate 79 72 Respiratory 16 18 Rate Blood Pressure 162/75 125/81 O2 Sat by Pulse 98 99 Oximetry Medical Decision Making <Cindy Pittman - Last Filed: 05/26/23 15:23> - Lab Data Result diagrams: 05/26/23 16:38 05/26/23 16:38 - EKG Data EKG shows normal: sinus rhythm, axis (Normal), intervals ( normal), QRS complexes (Normal), ST-T waves (Normal) Rate: normal (Rate 64 bpm) <Kishore Pedersen - Last Filed: 05/29/23 07:49> - Medical Decision Making I performed the quick note portion of this chart. Electronically signed by Cindy Pittman PA-C (Cindy Pittman) Case reviewed with ophthalmology on-call. The patient's workup is negative at this point and will have her follow-up with her nuclear plant equipment operator in the clinic tomorrow, return if any symptoms change. The patient had CT scan of the brain which I interpreted as negative for acute intracranial hemorrhage. The patient had chest x-ray that I interpreted as negative for acute infiltrate, pneumothorax, congestive heart failure Was pt. sent in by a medical professional or institution ([facility], [employer], urgent care, hospital, or prison...) When possible be specific @ -Patient sent to have further evaluation by her chiropractic practice manager Did you speak to anyone other than the patient for history (EMS, parent, family, police, friend...)? What history was obtained from this source @ -[No] Did you review nursing and triage notes (agree or disagree)? Why? @ -[I reviewed and agree with nursing and triage notes] Were old charts reviewed (outside hosp., previous admission, EMS record, old EKG, old radiological studies, urgent care reports/EKG's, prison records)? Report findings @ -[No old charts were reviewed] Differential Diagnosis (chest pain, altered mental status, abdominal pain women, abdominal pain men, vaginal bleeding, weakness, fever, dyspnea, syncope, headache, dizziness, GI bleed, back pain, seizure, CVA, palpatations, mental health, musculoskeletal)? @ -[not applicable] EKG interpreted by me (3pts min.). @ -[As above] X-rays interpreted by me (1pt min.). @ -[None done] CT interpreted by me (1pt min.). @ -[None done] U/S interpreted by me (1pt. min.). @ -[None done] What testing was considered but not performed or refused? (CT, X-rays, U/S, labs)? Why? @ -[None] What meds were considered but not given or refused? Why? @ -[None] Did you discuss the management of the patient with other professionals (professionals i.e. , PA, [employer]ER, lab, RT, psych nurse, psychiatric social worker, trial lawyer, teacher, radiation safety officer, manager rn case)? Give summary @ -[Discussed with ophthalmology and treatment recommendations are incorporated Was smoking cessation discussed for >3mins.? @ -[No] Was critical care preformed (if so, how long)? @ -[No] Were there social determinants of health that impacted care today? How? (Homelessness, low income, unemployed, alcoholism, drug addiction, transportation, low edu. Level, literacy, decrease access to med. care, correction, rehab)? @ -[No] Was there de-escalation of care discussed even if they declined (Discuss DNR or withdrawal of care, Hospice)? DNR status @ -[No] What co-morbidities impacted this encounter? (DM, HTN, Smoking, COPD, CAD, Cancer, CVA, ARF, Chemo, Hep., AIDS, mental health diagnosis, sleep apnea, morbid obesity)? @ -[None] Was patient admitted / discharged? Hospital course, mention meds given and route, prescriptions, significant lab abnormalities, going to OR and other pertinent info. @ -[This patient is a 32-year-old woman who is sent here to have further evaluation for some vision changes that have been going on approximately 3 to 5 days now. She did have extensive workup here and results were discussed with ophthalmology and the patient will have further evaluation and treatment as outpatient. We discussed appropriate return parameters Undiagnosed new problem with uncertain prognosis? @ -[No] Drug Therapy requiring intensive monitoring for toxicity (Heparin, Nitro, Insulin, Cardizem)? @ -[No] Were any procedures done? @ -[No] Diagnosis/symptom? @ -[Visual changes Acute, or Chronic, or Acute on Chronic? @ -[Acute Uncomplicated (without systemic symptoms) or Complicated (systemic symptoms)? @ -[Uncomplicated Side effects of treatment? @ -[No] Exacerbation, Progression, or Severe Exacerbation? @ -[No] Poses a threat to life or bodily function? How? (Chest pain, USA, PA, pneumonia, PE, COPD, DKA, ARF, appy, cholecystitis, CVA, Diverticulitis, Homicidal, Suicidal, threat to staff... and all critical care pts) @ -[Low, but does require close follow-up (Kishore Pedersen) - Lab Data Lab Results 05/26/23 05/26/23 05/26/23 Range/Units 16:38 16:38 16:38 WBC 8.4 (3.8-10.6) k/uL RBC 4.73 (3.80-5.40) m/uL Hgb 14.0 (11.4-16.0) gm/dL Hct 43.7 (34.0-46.0) % MCV 92.4 (80.0-100.0) fL MCH 29.6 (25.0-35.0) pg MCHC 32.0 (31.0-37.0) g/dL RDW 13.7 (11.5-15.5) % Plt Count 314 (150-450) k/uL MPV 7.5 Neutrophils % 66 % Lymphocytes % 27 % Monocytes % 3 % Eosinophils % 2 % Basophils % 0 % Neutrophils # 5.6 (1.3-7.7) k/uL Lymphocytes # 2.3 (1.0-4.8) k/uL Monocytes # 0.2 (0-1.0) k/uL Eosinophils # 0.2 (0-0.7) k/uL Basophils # 0.0 (0-0.2) k/uL ESR (0-20) mm/Hr PT 10.4 (10.0-12.5) sec INR 0.9 (<1.2) APTT 26.3 (22.0-30.0) sec Sodium 139 (137-145) mmol/L Potassium 4.2 (3.5-5.1) mmol/L Chloride 105 (98-107) mmol/L Carbon Dioxide 24 (22-30) mmol/L Anion Gap 10 mmol/L BUN 16 (7-17) mg/dL Creatinine 0.81 (0.52-1.04) mg/dL Est GFR (CKD-EPI)AfAm >90 (>60 ml/min/1.73 sqM) Est GFR (CKD-EPI)NonAf >90 (>60 ml/min/1.73 sqM) Glucose 88 (74-99) mg/dL Calcium 10.3 H (8.4-10.2) mg/dL Total Bilirubin 0.4 (0.2-1.3) mg/dL AST 38 H (14-36) U/L ALT 38 H (4-34) U/L Alkaline Phosphatase 119 (38-126) U/L Troponin I (0.000-0.034) ng/mL C-Reactive Protein (<1.0) mg/dL Total Protein 8.6 H (6.3-8.2) g/dL Albumin 4.9 (3.5-5.0) g/dL 05/26/23 05/26/23 05/26/23 Range/Units 16:38 17:38 17:38 WBC (3.8-10.6) k/uL RBC (3.80-5.40) m/uL Hgb (11.4-16.0) gm/dL Hct (34.0-46.0) % MCV (80.0-100.0) fL MCH (25.0-35.0) pg MCHC (31.0-37.0) g/dL RDW (11.5-15.5) % Plt Count (150-450) k/uL MPV Neutrophils % % Lymphocytes % % Monocytes % % Eosinophils % % Basophils % % Neutrophils # (1.3-7.7) k/uL Lymphocytes # (1.0-4.8) k/uL Monocytes # (0-1.0) k/uL Eosinophils # (0-0.7) k/uL Basophils # (0-0.2) k/uL ESR 23 H (0-20) mm/Hr PT (10.0-12.5) sec INR (<1.2) APTT (22.0-30.0) sec Sodium (137-145) mmol/L Potassium (3.5-5.1) mmol/L Chloride (98-107) mmol/L Carbon Dioxide (22-30) mmol/L Anion Gap mmol/L BUN (7-17) mg/dL Creatinine (0.52-1.04) mg/dL Est GFR (CKD-EPI)AfAm (>60 ml/min/1.73 sqM) Est GFR (CKD-EPI)NonAf (>60 ml/min/1.73 sqM) Glucose (74-99) mg/dL Calcium (8.4-10.2) mg/dL Total Bilirubin (0.2-1.3) mg/dL AST (14-36) U/L ALT (4-34) U/L Alkaline Phosphatase (38-126) U/L Troponin I <0.012 (0.000-0.034) ng/mL C-Reactive Protein <0.5 (<1.0) mg/dL Total Protein (6.3-8.2) g/dL Albumin (3.5-5.0) g/dL Disposition <Cindy Pittman - Last Filed: 05/26/23 15:23> Is patient prescribed a controlled substance at d/c from ED?: No <Kishore Pedersen - Last Filed: 05/29/23 07:49> Clinical Impression: Vision abnormalities Disposition: HOME SELF-CARE Condition: Good Instructions (If sedation given, give patient instructions): Blurred Vision (ED) Additional Instructions: As we discussed, see your nuclear plant equipment operator in the clinic as soon as they are able to get you in. Return to the emergency department if there is any difficulty with the follow-up plan or if any symptoms develop Referrals: Dacia Tariq [Primary Care Provider] - 1-2 days Judy Saunders MD [STAFF PHYSICIAN] - 1-2 days
--- NOTE | 2023-05-26 16:36 | CT ---
EXAMINATION TYPE: CT brain wo con CT DLP: 1182.4 mGycm, Automated exposure control for dose reduction was used. DATE OF EXAM: 05/26/2023 4:10 PM COMPARISON: . CLINICAL INDICATION:Female, 32 years old with history of left sided weakness yesterday, weakness TECHNIQUE: Brain: Axial CT images of the brain were obtained with coronal and sagittal reformats created and rev iewed. Contrast used: None. Oral contrast used: None. FINDINGS: Brain: Brain: Extra-axial spaces: No abnormal extra-axial fluid collections. Ventricular system: similar asymmetric dilation of the right lateral ventricle compatible with arac hnoid cyst measures approximately 23 x 18 mm. Cerebral parenchyma: No acute intraparenchymal hemorrhage or mass effect. The sher-white junction is well differentiated. Cerebellum: Unremarkable. Mass effect: No evidence of midline shift. Intracranial vasculature: unremarkable Soft tissues: Normal. Calvarium/osseous structures: No depressed skull fracture. Paranasal sinuses and mastoid air cells: Normal. Visualized orbits: Orbital contents are intact. IMPRESSION: No acute intracranial process. Similar right lateral ventricle arachnoid cyst without evidence for hydrocephalus.
[2023-05-26 16:52] LABS: Basophils % (A) 0 %; Eosinophils # (A) 0.2 k/uL (0-0.7); Eosinophils % (A) 2 %; HCT 43.7 % (34.0-46.0); Lymphocytes # (A) 2.3 k/uL (1.0-4.8); Lymphocytes % (A) 27 %; MCH 29.6 pg (25.0-35.0); MCV 92.4 fL (80.0-100.0); Mean Platelet Volume 7.5; Monocytes # (A) 0.2 k/uL (0-1.0); Monocytes % (A) 3 %; Neutrophils # (A) 5.6 k/uL (1.3-7.7); Neutrophils % (A) 66 %; Platelet Count 314 k/uL (150-450); RBC 4.73 m/uL (3.80-5.40); RDW 13.7 % (11.5-15.5); WBC 8.4 k/uL (3.8-10.6)
--- NOTE | 2023-05-26 16:52 | XR ---
EXAMINATION TYPE: XR chest 2V DATE OF EXAM: 05/26/2023 COMPARISON: 11/12/2020 INDICATION: Altered mental status peripheral vision worsening TECHNIQUE: Frontal and lateral views of the chest are obtained. FINDINGS: The heart size is normal. The pulmonary vasculature is normal. The lungs are clear. IMPRESSION: 1. No acute pulmonary process.
[2023-05-26 17:13] LABS: ALT 38 U/L (4-34); AST 38 U/L (14-36); African American GFR (CKD) >90 (>60 ml/min/1.73 sqM); Albumin 4.9 g/dL (3.5-5.0); Alkaline Phosphatase 119 U/L (38-126); Anion Gap 10 mmol/L; Blood Urea Nitrogen 16 mg/dL (7-17); Calcium 10.3 mg/dL (8.4-10.2); Carbon Dioxide 24 mmol/L (22-30); Chloride 105 mmol/L (98-107); Glucose 88 mg/dL (74-99); Non-African American GFR(CKD) >90 (>60 ml/min/1.73 sqM); Potassium 4.2 mmol/L (3.5-5.1); Sodium 139 mmol/L (137-145); Total Bilirubin 0.4 mg/dL (0.2-1.3); Total Protein 8.6 g/dL (6.3-8.2)
[2023-05-26 17:17] LABS: INR 0.9 (<1.2); Partial Thromboplastin Time 26.3 sec (22.0-30.0); Prothrombin Time 10.4 sec (10.0-12.5)
[2023-05-26 20:20] VITALS: BP 125/81; PULSE 72; RESP 18
== END 2023-05-26 19:35 | disposition home or self-care (01) ==
LOC: EC 14:57
DX: H53.8 Other visual disturbances (principal); F12.90 Cannabis use, unspecified, uncomplicated; Z87.891 Personal history of nicotine dependence; Z88.5 Allergy status to narcotic agent
CPT/HCPCS: 36415; 70450; 71046; 80053; 84484; 85025; 85610; 85652; 85730; 86140; 93005; 99284

== ENCOUNTER → 2024-07-10 | Outpatient (CLI) | payer OTHER ==
[2024-07-10 09:18] LABS: INR 0.9 (<1.2); Partial Thromboplastin Time 24.2 sec (22.0-30.0); Prothrombin Time 10.2 sec (10.0-12.5)
--- NOTE | 2024-07-10 09:34 | XR ---
EXAMINATION TYPE: XR foot limited LT DATE OF EXAM: 07/10/2024 9:05 AM COMPARISON: None CLINICAL INDICATION: Female, 33 years old with history of M79.672 LEFT FOOT PAIN; PHH, pain TECHNIQUE: 2 views FINDINGS: Type II with a navicular. Incidental bipartite tibial sesamoid. No acute fracture, subluxation, dislo cation is seen. IMPRESSION: 1. 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 Correlate for any poi nt tenderness. 2. Otherwise, no acute osseous abnormality seen. [facility], Workstation: [email or web address], 07/10/2024 9:32 AM
[2024-07-10 15:32] LABS: ALT 23 U/L (8-44); AST 23 U/L (13-35); Albumin 4.8 g/dL (3.8-4.9); Albumin/Globulin Ratio 1.66 Ratio (1.60-3.17); Alkaline Phosphatase 91 U/L (41-126); Blood Urea Nitrogen 14.3 mg/dL (9.0-27.0); Calcium 10.2 mg/dL (8.7-10.3); Carbon Dioxide 25.2 mmol/L (21.6-31.8); Chloride 101 mmol/L (96-109); Globulin 2.9 g/dL (1.6-3.3); Glucose 105 mg/dL (70-110); Sodium 138 mmol/L (135-145); Total Bilirubin 0.5 mg/dL (0.3-1.2); Total Protein 7.7 g/dL (6.2-8.2); Uric Acid 6.9 mg/dL (2.9-7.7)
[2024-07-10 15:44] LABS: Basophils # (A) 0.03 X 10*3/uL (0.00-0.10); Basophils % (A) 0.4 %; Eosinophils # (A) 0.07 X 10*3/uL (0.04-0.35); Eosinophils % (A) 0.8 %; HCT 44.2 % (37.2-46.3); HGB 14.9 g/dL (12.0-15.0); Lymphocytes # (A) 2.33 X 10*3/uL (0.90-5.00); Lymphocytes % (A) 27.6 %; MCH 31.6 pg (27.0-32.0); MCHC 33.7 g/dL (32.0-37.0); MCV 93.6 FL (80.0-97.0); Mean Platelet Volume 10.3 FL (9.5-12.2); Monocytes # (A) 0.54 X 10*3/uL (0.20-1.00); Monocytes % (A) 6.4 %; NRBC Per 100 WBC 0 X 10*3/uL (0.00-0.01); Neutrophils # (A) 5.45 X 10*3/uL (1.80-7.70); Neutrophils % (A) 64.6 %; Platelet Count 345 X 10*3/uL (140-440); RBC 4.72 X 10*6/uL (4.10-5.20); RDW 13.8 % (11.5-14.5); WBC 8.44 X 10*3/uL (4.50-10.00)
[2024-07-10 16:01] LABS: Erythrocyte Sedimentation Rate 24 mm/Hr (0-20)
== END | disposition home or self-care (01) ==
LOC: LABWHC1 08:28
PROVIDERS: ATTEND Internal Medicine Medical Oncology
DX: M79.672 Pain in left foot (principal)
CPT/HCPCS: 36415; 80053; 84550; 85025; 85610; 85652; 85730